=== PATIENT | female | born 1945 | race Caucasian/White ===

== ENCOUNTER 2020-03-08 10:05 | Inpatient (IN) ==
--- OUTSIDE RECORDS SUMMARY | 2020-03-08 10:08 | External Medical Summary | Continuity of Care Document ---
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 [place] Start: 07-Sep-2016 Quantity: 1 30 Aerosol Powder Br eath Activated Disp Pack Refills: 0 Symbicort 160-4.5 MCG/ACT Inhalation Aer osol; INHALE 2 PUFFS TWICE DAILY. RINSE MOUTH AFTER USE. [place] Start: 07-Sep-2016 Quantity: 1 10.2 GM Inhaler Refills: 5 Doxycycline Hyclate 100 MG Oral Capsule; TAKE 1 CAPSULE EVERY 12 HOURS UNTIL GONE. [place] Start: 07-Sep-2016 Quantity: 20 Refills: 0 predniSONE 10 MG Oral Tablet; Take 4 tab lets PO for 2 days then resume prior prednisone taper as prescribed [place] Start: 07-Sep-2016 Quantity: 8 Refills: 0 Oxygen; 2LPM with activity [place] Start: Quantity: 2 Refills: 0 Montelukast Sodium 10 MG Oral Tablet; take 1 tablet by mouth every evening Start: 01-Sep-2016 Refills: 0 Lidocaine 5 % External Ointment; APPLY TO AFFECTED AREAS DIRECTED. Start: 01-Sep-2016 Refills: 0 Atorvastatin Calcium 20 MG Oral Tablet; TAKE 1 TABLET DAILY. Start: 01-Sep-2016 Refills: 0 Toprol XL 50 MG Oral Tablet Extended Release 24 Hour; Take 1 tablet daily Start: 01-Sep-2016 Quantity: 90 Refills: 3 Lisinopril 5 MG Oral Tablet; TAKE (1) TABLET DAILY. Start: 01-Sep-2016 Quantity: 30 Refills: 5 LORazepam 1 MG Oral Tablet; TAKE 1 TABLET EVERY 6 HOURS N EEDED FOR ANXIETY. Start: 01-Sep-2016 Refills: 0 Cyanocobalamin 1000 MCG/ML Injection Marija ution; INJECT 1 ML INTRAMUSCULARLY ONCE A MONTH Start: 01-Sep-2016 Refills: 0 oxyCODONE HCl - 5 MG Oral Capsule; TAKE 1 CAPSULE EVERY 4 HO URS NEEDED. Start: 01-Sep-2016 Refills: 0 Actonel 35 MG Oral Tablet; TAKE 1 TABLET ONCE WEEKLY Start: 01-Sep-2016 Quantity: 4 Refills: 5 Vitamin D3 1.25 MG (85045 UT) Oral Capsule; take 1 capsule b y mouth every week Start: 01-Sep-2016 Refills: 0 Citalopram Hydrobromide 20 MG Oral Tablet; TAKE 1 TABLET NARAYAN LY. Start: 01-Sep-2016 Refills: 0 Acidophilus Lactobacillus Oral Capsule; TAKE DIRECTED. Start: 01-Sep-2016 Refills: 0 Aspirin Adult Low Dose 81 MG Oral Tablet Delayed Release; TA KE 1 TABLET DAILY. Start: 01-Sep-2016 Refills: 0 Procedures Procedures not documented Immunizations Immunizations not documented Plan of Treatment Planned Observations Planned Goals not documented Results No Known Results Results not documented
[2020-03-08] MEDS ORDERED: ACETAMINOPHEN 500 MG TAB PO STA (10:37)
[2020-03-08] MEDS ORDERED: ONDANSETRON INJ 2 MG/ML 2 ML VIAL IV STA (10:41)
[2020-03-08] MEDS ORDERED: SODIUM CHLORIDE 0.9% 1000ML 1,000 ML IV SCH (10:45)
[2020-03-08 10:51] LABS: Appearance Urine Clear (Clear); Bilirubin Urine Negative (Negative); Blood Urine Negative (Negative); Color Urine Yellow; Glucose Urine UA Negative (Negative); Ketones Urine Negative (Negative); Leukocyte Esterase Urine Negative (Negative); Nitrite Urine Negative (Negative); Protein Urine Negative (Negative); Specific Gravity Urine 1.016 (1.000-1.030); Urobilinogen Urine Negative (Negative); pH Urine 6.5 (4.5-7.5)
[2020-03-08] MEDS: fentaNYL citrate 100 MCG/2 ML VIAL IV PRN ×2 (10:55→12:01)
[2020-03-08 11:06] LABS: Basophils # (auto) 0.02 K/uL (0-0.2); Basophils % (auto) 0.1 %; Eosinophils % (auto) 0.5 %; Hematocrit (blood only) 37.6 % (37-47); Hemoglobin 12.2 g/dL (12.0-16.0); Immature Granulocytes # (auto) 0.16 K/uL (0.00-0.02); Immature Granulocytes % (auto) 0.7 %; Lymphocytes # (auto) 1.02 K/uL (1.2-3.4); Lymphocytes % (auto) 4.7 %; Mean Corpuscular Hgb Conc 32.4 g/dL (32-36); Mean Corpuscular Volume 86.4 fL (80-100); Mean Platelet Volume 10.5 fL (7.4-10.4); Monocytes # (auto) 1.79 K/uL (0.11-0.59); Monocytes % (auto) 8.2 %; Neutrophils # (auto) 18.79 K/uL (1.4-6.5); Neutrophils % (auto) 85.8 %; Platelet Count 235 K/uL (130-400); RDW Coefficient of Variation 13.6 % (11.5-14.5); RDW Standard Deviation 42.9 fL (36.4-46.3); Red Blood Count 4.35 M/uL (4.2-5.4); White Blood Count 21.88 K/uL (4.8-10.8)
[2020-03-08 11:07] LABS: Base Excess VBG 6.3 mEq/L; HCO3 VBG 34 mmol/L; PCO2 VBG 63 mmHg (38-50); PO2 VBG 30 mmHg; pH VBG 7.34 (7.36-7.41)
[2020-03-08 11:08] LABS: Oxygen Saturation VBG < 60.0 %
--- NOTE | 2020-03-08 11:11 | Emergency Department Note ---
Impression & Plan Closed intertrochanteric fracture of left hip, Fall, Closed fracture of left olecranon process ED Provider Note NAME: CHRIS FIGUEROA AGE: 75 SEX: F : 1945 ARRIVES VIA: Ambulance INFORMANT: Patient, ED PROVIDER(S): Silvino Daniel DO CHIEF COMPLAINT: Fall HPI: The patient is a 75-year-old female who presented to the emergency department for an evaluation after a fall. The patient states that she was seated and when she went to stand up she fell striking her left side. She has pain in her left hip as well as her left elbow. She does have a history of frequent falls and fell last week striking her left elbow. She did have swelling of the left elbow which is slowly resolving. She denies having any head injury. She denies having any nausea or vomiting. She denies having any neck pain or chest pain. The patient states that she has been compliant with her outpatient medications. She has a history of COPD and continues to use tobacco products. She denies having any significant weight loss over the last 6 months but states that she does not eat very well. She states that she has been eating and drinking about at her baseline. She denies having any lower extremity swelling. The patient arrives at the emergency department via ALS. She received morphine and prior to arrival. She states that this helped her pain in her left hip significantly. ROS: See above HPI for pertinent positives & negatives. A total of 10 systems reviewed and were otherwise negative. PAST MEDICAL HISTORY: See Below PAST SURGICAL HISTORY: See Below FAMILY HISTORY: See Below SOCIAL HISTORY: See Below HOME MEDICATIONS: See Below ALLERGIES: See Below VITALS: See Below PHYSICAL EXAMINATION: GENERAL: The patient is awake and alert. She is somewhat anxious appearing and very frail. EYES: The conjunctivae are clear. The pupils are round and reactive. EARS, NOSE, MOUTH AND THROAT: The nose is without any evidence of any deformity. Mucous members are dry. NECK: The neck is nontender and supple. RESPIRATORY: Shallow respirations were noted throughout. Diminished breath sounds are noted in all lung titus. There were no retractions but there was conversational dyspnea. CARDIOVASCULAR: Regular rate and rhythm noted there no murmurs rubs or gallops normal S1 normal S2. GASTROINTESTINAL: The abdomen is soft. Abdomen is nontender. BACK: No significant midline tenderness was noted. MUSCULOSKELETAL/EXTREMITIES: There is pain with range of motion testing of the left elbow. There is ecchymosis over the left olecranon. There is pain with range of motion testing of the left hip. There is no shortening. There is no pain in the lower extremities at the knees or the ankles. SKIN: There is no obvious evidence of any rash. Skin was warm and dry. NEUROLOGIC: Patient is awake alert and oriented x3. Strength is symmetric in both lower extremities. MEDICAL DECISION MAKING: The patient is a 75-year-old female who presented to the emergency department for an evaluation after a fall. The patient has a history of tobacco use and COPD. She has had multiple falls recently. She injured her left elbow recently but did not seek medical attention. Her elbow is very swollen and ecchymotic. She also has significant left hip pain. Radiographic studies were obtained. The patient was found to have an olecranon fracture which appears to be age- indeterminate but also has an intertrochanteric left hip fracture. The patient was treated with pain medication in the emergency department. She was reevaluated multiple times. I discussed the patient's laboratory and radiographic studies with her. Ultimately she does appear to have a surgical fracture. I discussed her case with the on-call [facility]ist. They have agreed to evaluate the patient in the emergency department for further management and disposition. Triage Nursing notes reviewed. Prior medical records reviewed Vital Signs: reviewed and remarkable for elevated blood pressure. Differential diagnosis: Infection, dehydration, metabolic abnormality, hypo/hyperglycemia, electrolyte disturbance, anemia, hypoxia, cardiac sources, intracerebral event, toxicologic, neurologic, as well as other pathologies. ER treatment provided: See below Diagnostics interpreted by me: ECG: EKG was obtained in the emergency department. My interpretation is sinus tachycardia at 117 bpm. There was no ectopy. Poor R wave progression was noted. Inferior and lateral ST depressions were noted. This was compared to a tracing from May [id number]. There was an increase in the rate however no significant changes were noted. Cardiac Monitoring: An order was placed for continuous cardiac monitoring. The monitor shows a rate of 110 bpm with sinus tachycardia rhythm. Laboratory studies: As stated above and show below. Imaging studies: See below Consultation(s): 1220: I discussed this case with Dr. Matthews who is on-call for the [facility]ist group. He will evaluate the patient in the emergency department. Past Med/Surg History Medical History COPD (chronic obstructive pulmonary disease) Reflux gastritis Social History Smoking Status: Current every day smoker Feels Safe at Home: Yes Allergies Allergies Allergy/AdvReac Type Severity Reaction Status Date / Time No Known Allergies Allergy Unverified 03/08/20 12:17 Home Meds Home Medications Medication Instructions Recorded Confirmed albuterol sulfate [Ventolin HFA] 1 - 2 puff INHALATION Q4H PRN 03/08/20 03/08/20 amlodipine 2.5 mg PO QAM 03/08/20 03/08/20 atorvastatin 20 mg PO PM 03/08/20 03/08/20 docusate sodium 100 mg PO BID 03/08/20 03/08/20 duloxetine 60 mg PO QAM 03/08/20 03/08/20 famotidine 20 mg PO QAM 03/08/20 03/08/20 xoubocpghav-pjgraotmf-dkvuljld 1 inh INHALATION BID 03/08/20 03/08/20 [Trelegy Ellipta] ipratropium-albuterol 3 ml INHALATION Q4H PRN 03/08/20 03/08/20 lorazepam 1 mg PO Q8H PRN 03/08/20 03/08/20 oxycodone 5 mg PO Q8H PRN 03/08/20 03/08/20 Results & Data (ED) Vital Signs Vital Signs - 24 hr 03/08/20 10:04 03/08/20 10:40 03/08/20 11:29 Temperature 37 C Temperature Source Oral Pulse Rate 100 H Pulse Rate [Finger] 100 H Respiratory Rate 20 20 Respiratory Depth Normal Blood Pressure 158/97 H Blood Pressure [Right Arm] 171/89 H Blood Pressure Mean 117 Blood Pressure Mean [Right Arm] 116 Pulse Oximetry 99 94 94 Oxygen Delivery Method Nasal Cannula Nasal Cannula Nasal Cannula Oxygen Flow Rate 3 3 3 Sepsis Recent Fever Within 48 Hours No Sepsis New/Unexplained Change in Mental Status N/A Sepsis Action Taken by Nursing No Action Required Home Medications Current Medication List: was personally reviewed by me Laboratory Data Attestation: I reviewed the patient's lab results. Result diagrams: 03/08/20 10:55 11/22/20 10:55 Lab Results 03/08/20 03/08/20 03/08/20 Range/Units 10:18 10:55 10:55 WBC 21.88 H (4.8-10.8) K/uL RBC 4.35 (4.2-5.4) M/uL Hgb 12.2 (12.0-16.0) g/dL Hct 37.6 (37-47) % MCV 86.4 (80-100) fL MCH 28.0 (25-34) pg MCHC 32.4 (32-36) g/dL RDW Std Deviation 42.9 (36.4-46.3) fL RDW Coeff of Zhao 13.6 (11.5-14.5) % Plt Count 235 (130-400) K/uL MPV 10.5 H (7.4-10.4) fL Immature Gran % (Auto) 0.7 % Neut % (Auto) 85.8 % Lymph % (Auto) 4.7 % Wilkin % (Auto) 8.2 % Eos % (Auto) 0.5 % Baso % (Auto) 0.1 % Neut # (Auto) 18.79 H (1.4-6.5) K/uL Lymph # (Auto) 1.02 L (1.2-3.4) K/uL Wilkin # (Auto) 1.79 H (0.11-0.59) K/uL Eos # (Auto) 0.10 (0-0.5) K/uL Baso # (Auto) 0.02 (0-0.2) K/uL Immature Gran # (Auto) 0.16 H (0.00-0.02) K/uL PT Cancelled INR Cancelled VBG pH (7.36-7.41) VBG pCO2 (38-50) mmHg VBG pO2 mmHg VBG HCO3 mmol/L VBG O2 Saturation % VBG Base Excess mEq/L Barometric Pressure mm/Hg Sodium (136-145) mmol/L Potassium (3.5-5.1) mmol/L Chloride (98-107) mmol/L Carbon Dioxide (21-32) mmol/L Anion Gap (3-11) BUN (7-18) mg/dl Creatinine (0.6-1.2) mg/dl Est Cr Clr Drug Dosing ml/min Est GFR ( Amer) Est GFR (Non-Af Amer) BUN/Creatinine Ratio (10-20) Glucose (70-99) mg/dl Calcium (8.5-10.1) mg/dl Magnesium (1.8-2.4) mg/dl Total Bilirubin (0.2-1) mg/dl AST (15-37) U/L ALT (12-78) U/L Alkaline Phosphatase (45-117) U/L Total Creatine Kinase (26-192) U/L Troponin I (0-0.045) ng/ml Total Protein (6.4-8.2) gm/dl Albumin (3.4-5.0) gm/dl Globulin (2.5-4.0) gm/dl Albumin/Globulin Ratio (0.9-2) TSH (0.300-4.500) uIu/ml Urine Color Yellow Urine Appearance Clear (Clear) Urine pH 6.5 (4.5-7.5) Ur Specific Harris 1.016 (1.000-1.030) Urine Protein Negative (Negative) Urine Glucose (UA) Negative (Negative) Urine Ketones Negative (Negative) Urine Blood Negative (Negative) Urine Nitrite Negative (Negative) Urine Bilirubin Negative (Negative) Urine Urobilinogen Negative (Negative) Ur Leukocyte Esterase Negative (Negative) SARS-CoV-2 Ag (Rapid) (Negative) 03/08/20 03/08/20 03/08/20 Range/Units 10:55 10:55 11:51 WBC (4.8-10.8) K/uL RBC (4.2-5.4) M/uL Hgb (12.0-16.0) g/dL Hct (37-47) % MCV (80-100) fL MCH (25-34) pg MCHC (32-36) g/dL RDW Std Deviation (36.4-46.3) fL RDW Coeff of Zhao (11.5-14.5) % Plt Count (130-400) K/uL MPV (7.4-10.4) fL Immature Gran % (Auto) % Neut % (Auto) % Lymph % (Auto) % Wilkin % (Auto) % Eos % (Auto) % Baso % (Auto) % Neut # (Auto) (1.4-6.5) K/uL Lymph # (Auto) (1.2-3.4) K/uL Wilkin # (Auto) (0.11-0.59) K/uL Eos # (Auto) (0-0.5) K/uL Baso # (Auto) (0-0.2) K/uL Immature Gran # (Auto) (0.00-0.02) K/uL PT 10.7 INR 1.0 VBG pH 7.34 L (7.36-7.41) VBG pCO2 63 H (38-50) mmHg VBG pO2 30 mmHg VBG HCO3 34 mmol/L VBG O2 Saturation < 60.0 % VBG Base Excess 6.3 mEq/L Barometric Pressure 738.0 mm/Hg Sodium 136 (136-145) mmol/L Potassium 3.5 (3.5-5.1) mmol/L Chloride 101 (98-107) mmol/L Carbon Dioxide 34 H (21-32) mmol/L Anion Gap 1.0 L (3-11) BUN 10 (7-18) mg/dl Creatinine 0.53 L (0.6-1.2) mg/dl Est Cr Clr Drug Dosing 54.0 ml/min Est GFR ( Amer) 108.4 Est GFR (Non-Af Amer) 93.5 BUN/Creatinine Ratio 18.6 (10-20) Glucose 127 H (70-99) mg/dl Calcium 8.7 (8.5-10.1) mg/dl Magnesium 2.0 (1.8-2.4) mg/dl Total Bilirubin 0.6 (0.2-1) mg/dl AST 34 (15-37) U/L ALT 53 (12-78) U/L Alkaline Phosphatase 107 (45-117) U/L Total Creatine Kinase 51 (26-192) U/L Troponin I < 0.015 (0-0.045) ng/ml Total Protein 7.3 (6.4-8.2) gm/dl Albumin 3.5 (3.4-5.0) gm/dl Globulin 3.8 (2.5-4.0) gm/dl Albumin/Globulin Ratio 0.9 (0.9-2) TSH 0.907 (0.300-4.500) uIu/ml Urine Color Urine Appearance (Clear) Urine pH (4.5-7.5) Ur Specific Harris (1.000-1.030) Urine Protein (Negative) Urine Glucose (UA) (Negative) Urine Ketones (Negative) Urine Blood (Negative) Urine Nitrite (Negative) Urine Bilirubin (Negative) Urine Urobilinogen (Negative) Ur Leukocyte Esterase (Negative) SARS-CoV-2 Ag (Rapid) (Negative) 03/08/20 Range/Units Unknown WBC (4.8-10.8) K/uL RBC (4.2-5.4) M/uL Hgb (12.0-16.0) g/dL Hct (37-47) % MCV (80-100) fL MCH (25-34) pg MCHC (32-36) g/dL RDW Std Deviation (36.4-46.3) fL RDW Coeff of Zhao (11.5-14.5) % Plt Count (130-400) K/uL MPV (7.4-10.4) fL Immature Gran % (Auto) % Neut % (Auto) % Lymph % (Auto) % Wilkin % (Auto) % Eos % (Auto) % Baso % (Auto) % Neut # (Auto) (1.4-6.5) K/uL Lymph # (Auto) (1.2-3.4) K/uL Wilkin # (Auto) (0.11-0.59) K/uL Eos # (Auto) (0-0.5) K/uL Baso # (Auto) (0-0.2) K/uL Immature Gran # (Auto) (0.00-0.02) K/uL PT INR VBG pH (7.36-7.41) VBG pCO2 (38-50) mmHg VBG pO2 mmHg VBG HCO3 mmol/L VBG O2 Saturation % VBG Base Excess mEq/L Barometric Pressure mm/Hg Sodium (136-145) mmol/L Potassium (3.5-5.1) mmol/L Chloride (98-107) mmol/L Carbon Dioxide (21-32) mmol/L Anion Gap (3-11) BUN (7-18) mg/dl Creatinine (0.6-1.2) mg/dl Est Cr Clr Drug Dosing ml/min Est GFR ( Amer) Est GFR (Non-Af Amer) BUN/Creatinine Ratio (10-20) Glucose (70-99) mg/dl Calcium (8.5-10.1) mg/dl Magnesium (1.8-2.4) mg/dl Total Bilirubin (0.2-1) mg/dl AST (15-37) U/L ALT (12-78) U/L Alkaline Phosphatase (45-117) U/L Total Creatine Kinase (26-192) U/L Troponin I (0-0.045) ng/ml Total Protein (6.4-8.2) gm/dl Albumin (3.4-5.0) gm/dl Globulin (2.5-4.0) gm/dl Albumin/Globulin Ratio (0.9-2) TSH (0.300-4.500) uIu/ml Urine Color Urine Appearance (Clear) Urine pH (4.5-7.5) Ur Specific Harris (1.000-1.030) Urine Protein (Negative) Urine Glucose (UA) (Negative) Urine Ketones (Negative) Urine Blood (Negative) Urine Nitrite (Negative) Urine Bilirubin (Negative) Urine Urobilinogen (Negative) Ur Leukocyte Esterase (Negative) SARS-CoV-2 Ag (Rapid) Negative (Negative) Administered Medications Fentanyl Citrate (Fentanyl Citrate 100 Mcg/2 Ml Vial) 25 mcg IV Q15M PRN PRN Reason: Pain Stop: 03/22/20 10:40 Last Admin: 03/08/20 12:01 Dose: 25 mcg Documented by: [id number] Admin: 03/08/20 10:55 Dose: 25 mcg Documented by: [id number] Discontinued Medications Acetaminophen (Acetaminophen 500 Mg Tab) 1,000 mg PO NOW STA Stop: 03/08/20 10:38 Last Admin: 03/08/20 10:57 Dose: Not Given Documented by: [id number] Sodium Chloride (Nss 1000ml) 1,000 mls @ 999 mls/hr IV .Q1H1M DENTON Stop: 03/08/20 11:45 Last Infusion: 03/08/20 12:00 Dose: 0 mls/hr Documented by: [id number] Admin: 03/08/20 10:57 Dose: 999 mls/hr Documented by: [id number] Ondansetron HCl (Ondansetron Inj 2 Mg/Ml 2 Ml Vial) 4 mg IV NOW STA Stop: 03/08/20 10:42 Last Admin: 03/08/20 10:55 Dose: 4 mg Documented by: [id number] Imaging Data Radiologist's Impression: Patient: CHRIS FIGUEROA Admit Date: 03/08/20 MR#: [id number] Address1: [address] Acct ID:[id number] Address2: Date: 1945 [facility] Zip: [place] [address] Age: 75 Location: ED Sex: F Room/Bed: Att Phy: Diagnosis: HIP PAIN Ramona Phy: PCP,NO Service Date: 03/08/20 [place] Phy: Interpreting Phy: Nikita Pryor MD Admit Phy: Ordering Phy: Silvino Daniel DO cc: ~ XR hip LT 2V w pelvis CLINICAL HISTORY: Left hip pain status post trauma COMPARISON: None. DISCUSSION: There is an acute intertrochanteric left hip fracture with resulting varus angulation. There is no SI joint diastases. There is no symphysis diastases. Postsurgical changes are present within the lower lumbar spine. There are sclerotic changes involving the left SI joint. An chronic sacral insufficien cy fracture cannot be excluded. IMPRESSION: Acute intertrochanteric left hip fracture with resultant varus angulation ACT 112: Negative or not required by law. Electronically signed by: Nikita Pryor M.D. 03/08/2020 12:35 PM Dictated: 03/08/20 1234 Transcribed: 03/08/20 1234 Patient: CHRIS FIGUEROA Admit Date: 03/08/20 MR#: [id number] Address1: [facility] [address] Acct ID:[id number] Address2: Date: 1945 [facility] Zip: [place] [address] Age: 75 Location: ED Sex: F Room/Bed: Att Phy: Diagnosis: HIP PAIN Ramona Phy: PCP,NO Service Date: 03/08/20 [place] Phy: Interpreting Phy: Nikita Pryor MD Admit Phy: Ordering Phy: Silvino Daniel DO cc: ~ CT head/brain wo con CLINICAL HISTORY: Head trauma. Confusion. COMPARISON STUDY: No previous studies for comparison. TECHNIQUE: Axial CT of the brain is performed from the vertex to the skull base. IV contrast was not administered for this examination. A dose lowering technique was utilized adhering to the principles of ALARA. CT DOSE: 1231.83 mGy.cm FINDINGS: No intra or extra-axial mass lesions are visualized. There is no CT evidence of acute cortical infarction. There is no evidence of midline shift. There is no acute hemorrhage. No calvarial fractures are visualized. There are patchy white matter hypodensities likely on a small vessel basis. There is no evidence of pathologic ventricular dilatation. There is no evidence of acute sinusitis IMPRESSION: No acute intracranial findings ACT 112: Negative or not required by law. Electronically signed by: Nikita Pryor M.D. 03/08/2020 11:21 AM Dictated: 03/08/20 1119 Transcribed: 03/08/201118 Patient: CHRIS FIGUEROA Admit Date: 03/08/20 MR#: [id number] Address1: [address] Acct ID:[id number] Address2: Date: 1945 [facility] Zip: [place] [address] Age: 75 Location: ED Sex: F Room/Bed: Att Phy: Diagnosis: HIP PAIN Ramona Phy: PCP,NO Service Date: 03/08/20 Fam Phy: Interpreting Phy: Nikita Pryor MD Admit Phy: Ordering Phy: Silvino Daniel DO cc: ~ XR elbow LT min 3V routine CLINICAL HISTORY: Left elbow pain status post trauma COMPARISON: None. DISCUSSION: The examination was performed in a portable fashion. There is an acute olecranon fracture. In addition there is a transcondylar fracture of the distal humerus, possibly old. There is prominent posterior soft tissue swelling. Cross-sectional imaging could be obtained in follow-up for further fracture delineation as deemed clinically necessary. IMPRESSION: 1. Acute mildly distracted olecranon fracture 2. Distal humeral transcondylar impaction fracture possibly old. ACT 112: Negative or not required by law. Electronically signed by: Nikita Pryor M.D. 03/08/2020 12:34 PM Dictated: 03/08/20 1230 Transcribed: 03/08/201229 Patient: CHRIS FIGUEROA Admit Date: 03/08/20 MR#: [id number] Address1: [address] Acct ID:[id number] Address2: Date: 1945 [facility] Zip: [place] [address] Age: 75 Location: ED Sex: F Room/Bed: Att Phy: Diagnosis: HIP PAIN Ramona Phy: PCP,NO Service Date: 03/08/20 [facility] Phy: Interpreting Phy: Nikita Pryor MD Admit Phy: Ordering Phy: Silvino Daniel DO cc: ~ XR chest 1V portable CLINICAL HISTORY: weakness COMPARISON STUDY: 11/19/2009 FINDINGS: The chest has an emphysematous configuration. There is no evidence of acute parenchymal consolidation. There are no pleural effusions. Subtle septal lines, likely are secondary to chronic lung disease as opposed to failure.[ IMPRESSION: Pulmonary emphysema. No evidence of acute parenchymal consolidation. ACT 112: Negative or not required by law. Electronically signed by: Nikita Pryor M.D. 03/08/2020 12:30 PM Dictated: 03/08/20 1229 Transcribed: 03/08/20 1229 Patient: CHRIS FIGUEROA Admit Date: 03/08/20 MR#: [id number] Address1: [place] [address] Acct ID:[id number] Address2: Date: 1945 [facility] Zip: [place] [address] Age: 75 Location: ED Sex: F Room/Bed: Att Phy: Diagnosis: HIP PAIN Ramona Phy: PCP,NO Service Date: 03/08/20 [facility] Phy: Interpreting Phy: Nikita Pryor MD Admit Phy: Ordering Phy: Silvino Daniel DO cc: ~ CT OF THE CERVICAL SPINE CLINICAL HISTORY: Neck pain status post trauma COMPARISON STUDY: No previous studies for comparison. CT DOSE: TECHNIQUE: CT scan of the cervical spine was performed from the skull base to the thoracic inlet. Images are reviewed in the axial, sagittal, and coronal planes. IV contrast was not administered for this examination. A dose lowering technique was utilized adhering to the principles of ALARA. FINDINGS: There are extensive atherosclerotic carotid calcifications. The visualized portions of the lung apices reveal no evidence of pneumothorax. There is a bilobed 4 mm right apical pulmonary nodule. In a low-risk patient, no further follow-up is considered necessary. The prevertebral soft tissues are normal. No fractures or traumatic subluxations are visualized. There is a slight reversal the normal cervical lordosis. There are postsurgical changes of anterior cervical discectomy and fusion. There is mild anterolisthesis of C2 on C3 and C3 on C4. This is felt to be degenerative. There are moderate multilevel degenerative changes. IMPRESSION: No evidence of acute fracture or traumatic subluxation. ACT 112: Negative or not required by law. Electronically signed by: Nikita Pryor M.D. 03/08/2020 11:24 AM Dictated: 03/08/20 1121 Transcribed: 03/08/20 112 Blood Pressure Blood Pressure Findings: Elevated blood pressure Blood Pressure Disposition: further management by hospitalist Discharge Plan Visit Data Chief Complaint: Hip Pain ED Provider: Silvino Daniel Discharge Problem: Closed intertrochanteric fracture of left hip, Fall, Closed fracture of left olecranon process Patient Disposition: Being Evaluated by Hospitalist Condition: Good Forms Stand Alone Forms: My [facility] Prescriptions Prescriptions: No Action atorvastatin 20 mg tablet 20 mg PO PM RF: 0 ipratropium-albuterol 0.5 mg-3 mg(2.5 mg base)/3 mL Solution For Nebulization 3 ml INHALATION Q4H PRN (Reason: SOB) RF: 0 amlodipine 2.5 mg tablet 2.5 mg PO QAM RF: 0 famotidine 20 mg tablet 20 mg PO QAM RF: 0 lorazepam 1 mg tablet 1 mg PO Q8H PRN (Reason: Anxiety) RF: 0 albuterol sulfate [Ventolin HFA] 90 mcg/actuation HFA aerosol inhaler 1 - 2 puff INHALATION Q4H PRN (Reason: SOB/ Wheezing) RF: 0 docusate sodium 100 mg Tablet 100 mg PO BID RF: 0 oxycodone 5 mg tablet 5 mg PO Q8H PRN (Reason: Pain) RF: 0 duloxetine 60 mg capsule,delayed release(DR/EC) 60 mg PO QAM RF: 0 Trelegy Ellipta 100-62.5-25 mcg blister with device 1 inh INHALATION BID RF: 0 Referrals Referrals: PCP,NO [Primary Care Provider] -
--- NOTE | 2020-03-08 11:22 | CT Scan Report ---
CT head/brain wo con CLINICAL HISTORY: Head trauma. Confusion. COMPARISON STUDY: No previous studies for comparison. TECHNIQUE: Axial CT of the brain is performed from the vertex to the skull base. IV contrast was not administered for this examination. A dose lowering technique was utilized adhering to the principles of ALARA. CT DOSE: 1231.83 mGy.cm FINDINGS: No intra or extra-axial mass lesions are visualized. There is no CT evidence of acute cortical infarc tion. There is no evidence of midline shift. There is no acute hemorrhage. No calvarial fractures ar e visualized. There are patchy white matter hypodensities likely on a small vessel basis. There is no evidence of pathologic ventricular dilatation. There is no evidence of acute sinusitis IMPRESSION: No acute intracranial findings ACT 112: Negative or not required by law. Electronically signed by: Nikita Pryor M.D. 03/08/2020 11:21 AM
[2020-03-08 11:23] LABS: Alanine Aminotransferase 53 U/L (12-78); Albumin Level 3.5 gm/dl (3.4-5.0); Aspartate Aminotransferase 34 U/L (15-37); BUN Creatinine Ratio 18.6 (10-20); Blood Urea Nitrogen 10 mg/dl (7-18); Calcium 8.7 mg/dl (8.5-10.1); Carbon Dioxide 34 mmol/L (21-32); Chloride 101 mmol/L (98-107); Est GFR (African American) 108.4; Est GFR (Non-African American) 93.5; Glucose 127 mg/dl (70-99); Potassium 3.5 mmol/L (3.5-5.1); Sodium 136 mmol/L (136-145)
--- NOTE | 2020-03-08 11:25 | CT Scan Report ---
CT OF THE CERVICAL SPINE CLINICAL HISTORY: Neck pain status post trauma COMPARISON STUDY: No previous studies for comparison. CT DOSE: TECHNIQUE: CT scan of the cervical spine was performed from the skull base to the thoracic inlet. Shanta ges are reviewed in the axial, sagittal, and coronal planes. IV contrast was not administered for thi s examination. A dose lowering technique was utilized adhering to the principles of ALARA. FINDINGS: There are extensive atherosclerotic carotid calcifications. The visualized portions of the lung apices reveal no evidence of pneumothorax. There is a bilobed 4 m m right apical pulmonary nodule. In a low-risk patient, no further follow-up is considered necessary. The prevertebral soft tissues are normal. No fractures or traumatic subluxations are visualized. There is a slight reversal the normal cervical lordosis. There are postsurgical changes of anterior c ervical discectomy and fusion. There is mild anterolisthesis of C2 on C3 and C3 on C4. This is felt t o be degenerative. There are moderate multilevel degenerative changes. IMPRESSION: No evidence of acute fracture or traumatic subluxation. ACT 112: Negative or not required by law. Electronically signed by: Nikita Pryor M.D. 03/08/2020 11:24 AM
[2020-03-08 11:34] LABS: Albumin Globulin Ratio 0.9 (0.9-2); Alkaline Phosphatase 107 U/L (45-117); Bilirubin,Total 0.6 mg/dl (0.2-1); Creatine Kinase 51 U/L (26-192); Globulin 3.8 gm/dl (2.5-4.0); Thyroid Stimulating Hormone 0.907 uIu/ml (0.300-4.500); Total Protein 7.3 gm/dl (6.4-8.2); Troponin I < 0.015 ng/ml (0-0.045)
[2020-03-08 12:13] LABS: Prothrombin Time 10.7 Seconds (9.0-12.0)
--- NOTE | 2020-03-08 12:32 | XRay Report ---
XR chest 1V portable CLINICAL HISTORY: weakness COMPARISON STUDY: 11/19/2009 FINDINGS: The chest has an emphysematous configuration. There is no evidence of acute parenchymal con solidation. There are no pleural effusions. Subtle septal lines, likely are secondary to chronic lung disease as opposed to failure.[ IMPRESSION: Pulmonary emphysema. No evidence of acute parenchymal consolidation. ACT 112: Negative or not required by law. Electronically signed by: Nikita Pryor M.D. 03/08/2020 12:30 PM
--- NOTE | 2020-03-08 12:35 | XRay Report ---
XR elbow LT min 3V routine CLINICAL HISTORY: Left elbow pain status post trauma COMPARISON: None. DISCUSSION: The examination was performed in a portable fashion. There is an acute olecranon fracture . In addition there is a transcondylar fracture of the distal humerus, possibly old. There is promine nt posterior soft tissue swelling. Cross-sectional imaging could be obtained in follow-up for further fracture delineation as deemed clinically necessary. IMPRESSION: 1. Acute mildly distracted olecranon fracture 2. Distal humeral transcondylar impaction fracture possibly old. ACT 112: Negative or not required by law. Electronically signed by: Nikita Pryor M.D. 03/08/2020 12:34 PM
--- NOTE | 2020-03-08 12:37 | XRay Report ---
XR hip LT 2V w pelvis CLINICAL HISTORY: Left hip pain status post trauma COMPARISON: None. DISCUSSION: There is an acute intertrochanteric left hip fracture with resulting varus angulation. Th ere is no SI joint diastases. There is no symphysis diastases. Postsurgical changes are present withi n the lower lumbar spine. There are sclerotic changes involving the left SI joint. An chronic sacral insufficiency fracture cannot be excluded. IMPRESSION: Acute intertrochanteric left hip fracture with resultant varus angulation ACT 112: Negative or not required by law. Electronically signed by: Nikita Pryor M.D. 03/08/2020 12:35 PM
--- NOTE | 2020-03-08 12:50 | History & Physical Report ---
Date of Service March 08, 2020 Assessment & Plan (1) Closed intertrochanteric fracture of left hip: Seen on x-ray in the ED. - Orthopedics consulted - NPO @ midnight - Pain control (2) Closed fracture of left olecranon process: Discussed with orthopedics PA. - CT scan ordered. - Ortho as above (3) Fall: Patient's history is not ideal, but she denies loss of consciousness with her falls. Likely due to general weakness and cachexia. - PT/OT - CM for placement (4) Leukocytosis: No focal signs/symptoms of infection. CXR and UA both clear on admission. Likely reactive from hip fx. - Monitor (5) COPD (chronic obstructive pulmonary disease): Labored breathing. Patient is still smoking. Mild end-expiratory wheezing. Chronic hypoxemic respiratory failure with need for O2. VBG shows compensated hypercarbia. - Home maintenance inhaler - DuoNebs PRN (6) Reflux gastritis: - Maalox PRN (7) Malnutrition: BMi is 14.8. Patient looks cachectic on exam. Possibly due to COPD. Unclear if patient is up-to-date on cancer screenings. - Automatic Profile Sander Operator consulted for nutrition assessment - Discuss with patient. (8) DVT prophylaxis: SCDs - Holding heparin for possible surgery. History of Present Illness Primary Care Provider: NO PCP 75yo F w/ hx of COPD who presents after a fall at home. Per the patient, she has been having a lot of falls at home. This morning, she attempted to go to the bathroom and fell. She has had several rounds of pain medication and is not a great historian due to lethargy, but she does not appear to endorse any loss of consciousness at the time. She endorses left hip pain and left elbow pain, but otherwise denies any other areas of pain, denies nausea/vomiting, denies any chest pain, denies any shortness of breath, fevers or chills. Allergies Allergy/AdvReac Type Severity Reaction Status Date / Time No Known Allergies Allergy Unverified 03/08/20 12:17 Home Medications Medication Instructions Recorded Confirmed Type albuterol sulfate [Ventolin HFA] 1 - 2 puff INHALATION Q4H PRN 03/08/20 03/08/20 History amlodipine 2.5 mg PO QAM 03/08/20 03/08/20 History atorvastatin 20 mg PO PM 03/08/20 03/08/20 History docusate sodium 100 mg PO BID 03/08/20 03/08/20 History duloxetine 60 mg PO QAM 03/08/20 03/08/20 History famotidine 20 mg PO QAM 03/08/20 03/08/20 History laboogvzgew-bzxzkxika-ymjhvfap 1 inh INHALATION BID 03/08/20 03/08/20 History [Trelegy Ellipta] ipratropium-albuterol 3 ml INHALATION Q4H PRN 03/08/20 03/08/20 History lorazepam 1 mg PO Q8H PRN 03/08/20 03/08/20 History oxycodone 5 mg PO Q8H PRN 03/08/20 03/08/20 History Past Med/Surg History Medical History COPD (chronic obstructive pulmonary disease) Reflux gastritis Family History Other Family history non-contributory Social History Smoking Status: Current every day smoker Second Hand Exposure: Yes; Do You Dip or Chew Tobacco: No; Tobacco Cessation Education Requested by Patient: No Hx Alcohol Use: No Hx Substance Use: No Preferred Language: Chinese Communication Ability: Effective Industrial Millwright Required: No Beliefs That Will Affect Care: None Current Living Situation: Spouse Other Information That Helps Us Care for You: No Feels Safe at Home: Yes Safety Concerns: Feels Safe At This Time Assistive Devices: Oxygen - Continuous Review of Systems Review of Systems: All systems reviewed & are unremarkable except as noted in HPI & below Physical Exam Constitutional: WD/WN, vitals as above Eyes: EOM intact bilaterally; no conjunctival abnormality ENMT: external ear and nose normal, oropharynx normal Neck: trachea midline, no thyromegaly normal visual inspection Respiratory: normal respiratory effort, lungs clear to auscultation no respiratory distress Cardiovascular: Rate/Rhythm: regular rhythm and + tachycardic Heart Sounds: normal S1 and normal S2 Extremities: no edema Gastrointestinal (Abdomen): Inspection/Auscultation: abdomen normal to inspection; abdomen not distended Musculoskeletal: Head/Neck/Chest: normocephalic and head atraumatic Extremities: + limited ROM of extremities (Left leg) and + muscle atrophy; + abnormal strength Skin: no rashes, warm and dry Neurologic: moves all extremities and awake Psychiatric: Orientation: alert, oriented to person and cooperative Results & Data Results & Data ([facility]) Vital Signs (Past 12 Hours) Vital Signs Temp Pulse Pulse Resp BP BP Pulse Ox 03/08/20 11:29 100 H 20 171/89 H 94 03/08/20 10:40 94 03/08/20 10:04 37 C 100 H 20 158/97 H 99 Code Status & VTE Plan VTE Prophylaxis Plan VTE Prophylaxis will be ordered: Yes PG Care Time/CCT Total # of Minutes Spent Total Time Spent with Patient: Total time spent is greater than 50% in coordination of care (as documented) at patient's floor/unit and/or counseling patient: Coding Level of Care Code 95572 Initial Inpt Care Lvl 3 Diagnoses Closed intertrochanteric fracture of left hip S72.142A Encounter type: initial encounter Fracture alignment: displaced Closed fracture of left olecranon process S52.022A Encounter type: initial encounter Fall W19.XXXA Encounter type: initial encounter Leukocytosis D72.829 COPD (chronic obstructive pulmonary disease) J44.9 Reflux gastritis K29.60 Malnutrition E46 DVT prophylaxis Z29.9 (1) Fall Encounter type: initial encounter Qualified Code(s): W19.XXXA - Unspecified fall, initial encounter (2) Closed fracture of left olecranon process Encounter type: initial encounter Qualified Code(s): S52.022A - Displaced fracture of olecranon process without intraarticular extension of left ulna, initial encounter for closed fracture (3) Closed intertrochanteric fracture of left hip Encounter type: initial encounter Fracture alignment: displaced Qualified Code(s): S72.142A - Displaced intertrochanteric fracture of left femur, initial encounter for closed fracture
[2020-03-08] MEDS ORDERED: ONDANSETRON INJ 2 MG/ML 2 ML VIAL IV PRN (14:26)
[2020-03-08] MEDS: MoRPHine SULFATE 4 MG/ML 1 ML CARP\\VIAL IV PRN ×2 (15:08→20:07)
--- NOTE | 2020-03-08 16:36 | XRay Report ---
XR femur LT 2V routine CLINICAL HISTORY: Left femur pain status post trauma COMPARISON: AP pelvis performed the same day DISCUSSION: There is a left hip fracture with resultant varus angulation. No additional femoral fract ures are visualized. There are moderately extensive vascular calcifications. There are postsurgical c hanges in the lower lumbar spine. There are persistent sclerotic changes involve the left SI joint. IMPRESSION: Intertrochanteric hip fracture with resultant varus angulation. No additional femoral fra ctures identified ACT 112: Negative or not required by law. Electronically signed by: Nikita Pryor M.D. 03/08/2020 4:35 PM
--- NOTE | 2020-03-08 17:14 | CT Scan Report ---
CT elbow LT wo con CT DOSE: 214.68 mGy.cm CLINICAL HISTORY: Left elbow fracture. Surgical planning. TECHNIQUE: Helical images were acquired in the transverse plane. Sagittal and coronal reformatted enedelia ges were acquired. A dose lowering technique was utilized adhering to the principles of ALARA. COMPARISON STUDY: None. FINDINGS: There is mild diffuse soft tissue edema. There is an acute olecranon fracture with 5 mm of displacement. There is no evidence of radial head dislocation. There is an old healed transcondylar d istal humeral fracture. The fracture is healed with 1 cm dorsal displacement of the major distal frag ments. IMPRESSION: 1. Acute olecranon fracture demonstrating 5 mm of displacement 2. Old healed impacted transverse condylar distal humeral fracture. ACT 112: Negative or not required by law. Electronically signed by: Nikita Pryor M.D. 03/08/2020 5:12 PM
[2020-03-08] MEDS: oxyCODONE HCL IR 5 MG TAB (IMMEDIATE RELEASE) PO PRN ×2 (17:27→23:19)
[2020-03-08] MEDS: DOCUSATE SODIUM 100 MG CAP PO SCH (20:13)
[2020-03-08] MEDS: LORazepam 1 MG TAB PO PRN (20:13)
[2020-03-08] MEDS: ATORVASTATIN 20 MG TAB PO SCH (20:13)
--- NOTE | 2020-03-08 22:15 | Electrocardiogram Report ---
Test Reason : Blood Pressure : / mmHG Vent. 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
[2020-03-09] MEDS: oxyCODONE HCL IR 5 MG TAB (IMMEDIATE RELEASE) PO PRN ×4 (04:30→23:43)
[2020-03-09 06:12] LABS: Hematocrit (blood only) 33.4 % (37-47); Hemoglobin 10.6 g/dL (12.0-16.0); Mean Corpuscular Hgb Conc 31.7 g/dL (32-36); Mean Corpuscular Volume 88.4 fL (80-100); Mean Platelet Volume 10.8 fL (7.4-10.4); Platelet Count 200 K/uL (130-400); RDW Coefficient of Variation 14.1 % (11.5-14.5); RDW Standard Deviation 45.2 fL (36.4-46.3); Red Blood Count 3.78 M/uL (4.2-5.4); White Blood Count 15.88 K/uL (4.8-10.8)
[2020-03-09 06:29] LABS: BUN Creatinine Ratio 22.7 (10-20); Calcium 8.8 mg/dl (8.5-10.1); Creatinine Clr Calc Pharmacy 56.1 ml/min; Est GFR (African American) 109.8; Est GFR (Non-African American) 94.7; Magnesium 1.7 mg/dl (1.8-2.4); Potassium 3.6 mmol/L (3.5-5.1)
[2020-03-09] MEDS: MoRPHine SULFATE 4 MG/ML 1 ML CARP\\VIAL IV PRN ×3 (06:44→21:06)
[2020-03-09] MEDS: ALBUT/IPRATROP 3MG/0.5MG NEB 3 ML VIAL INH PRN ×2 (06:53→19:55)
[2020-03-09] MEDS: DULoxetine HCL 60 MG CAP PO SCH (07:45)
[2020-03-09] MEDS: FAMOTIDINE 20 MG TAB PO SCH (07:45)
[2020-03-09] MEDS: amLODIPine BESYLATE 5 MG TAB PO SCH (07:46)
[2020-03-09] MEDS: DOCUSATE SODIUM 100 MG CAP PO SCH ×2 (07:46→20:56)
[2020-03-09] MEDS: UMECLIDINIUM/VILANTEROL 62.5/25MCG 7 PUFFS/INHALER INH SCH (07:46)
[2020-03-09] MEDS: FLUTICASONE FUROATE 100MCG 14 PUFFS/INHALER INH SCH (07:46)
--- NOTE | 2020-03-09 09:29 | Orthopedic Consultation ---
Date of Consultation March 09, 2020 Assessment & Plan (1) Closed intertrochanteric fracture of left hip: X-rays reviewed with Dr. Vazquez. Patient will require left trochanteric femoral nailing. This has been discussed with the patient and she is in agreement. Plan for left TFN later this afternoon. (2) Closed fracture of left olecranon process: A long-arm splint was applied to the left upper extremity. Patient tolerated it well. Plan to treat this fracture nonoperatively at this time. Continue splint and sling. Ice to the left elbow. Supervising Physician Co-Signing Physician Notes Patient seen and examined. Agree with ENRIQUE Fisher's note as above. She has a left hip acute displaced intertrochanteric hip fracture that will require urgent cephalomedullary nailing. She was a community ambulator without regular use of an ambulatory aid prior to this injury. However she has numerous falls. I would recommend a walker for balance and support in the future. 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 With her pre- existing deformity, I would recommend nonoperative treatment for the acute olecranon fracture, and she is in agreement. Risks, benefits, and alternatives of surgery were explained in detail. The surgical procedure, as well as postoperative recovery and rehabilitation, was also explained in detail. Risks include bleeding; infection; damage to surrounding structures such as nerves, blood vessels, and tendons that run in the area; persistent pain or stiffness; nonunion; malunion; hardware failure; painful prominent hardware requiring removal; or need for further surgery. He/she understands all of this and wishes to proceed with surgery. Preoperative workup was completed today, and informed consent was obtained. History of Present Illness Reason for Consultation: Intertrochanteric left hip fracture Left olecranon fracture Attending Physician: Rashad Matthews MD History of Present Illness 75-year-old white [facility] at home. The patient apparently has had multiple falls at home in the past. She currently states that she does not remember falling this last time. When she realized she had fallen she had a moderate pain in her left hip and elbow. She was unable to ambulate and was brought to the emergency room. She does not remember having any shortness of breath, chest pain, lightheadedness prior to or after the fall. He was seen by the emergency room staff and x-rays were taken. It was found that she had an intertrochanteric left hip fracture as well as an olecranon fracture of the left elbow. She was admitted and we have been asked to take care of her fractures. She is currently awake and alert in her room. She states that her pain is controlled at rest. However there are times when her hip gives her spasms. No other complaints at this time. Allergies Allergy/AdvReac Type Severity Reaction Status Date / Time No Known Allergies Allergy Unverified 03/08/20 12:17 Home Medications Medication Instructions Recorded Confirmed Type albuterol sulfate [Ventolin HFA] 1 - 2 puff INHALATION Q4H PRN 03/08/20 03/08/20 History amlodipine 2.5 mg PO QAM 03/08/20 03/08/20 History atorvastatin 20 mg PO PM 03/08/20 03/08/20 History docusate sodium 100 mg PO BID 03/08/20 03/08/20 History duloxetine 60 mg PO QAM 03/08/20 03/08/20 History famotidine 20 mg PO QAM 03/08/20 03/08/20 History rhyifbkrkbw-fnnqhwgle-khqpzrgz 1 inh INHALATION BID 03/08/20 03/08/20 History [Trelegy Ellipta] ipratropium-albuterol 3 ml INHALATION Q4H PRN 03/08/20 03/08/20 History lorazepam 1 mg PO Q8H PRN 03/08/20 03/08/20 History oxycodone 5 mg PO Q8H PRN 03/08/20 03/08/20 History Patient History Medical History COPD (chronic obstructive pulmonary disease) Reflux gastritis Smoker Family History Other Family history non-contributory Social History Smoking Status: Current every day smoker Second Hand Exposure: Yes; Do You Dip or Chew Tobacco: No; Tobacco Cessation Education Requested by Patient: No Hx Alcohol Use: No Hx Substance Use: No Preferred Language: Setswana Communication Ability: Effective Dual Hose Cementer Required: No Beliefs That Will Affect Care: None marital status: Current Living Situation: Spouse Other Information That Helps Us Care for You: No Feels Safe at Home: Yes Safety Concerns: Feels Safe At This Time Assistive Devices: Oxygen - Continuous Review of Systems Review of Systems: All systems reviewed & are unremarkable except as noted in HPI & below Physical Exam Physical Exam: Patient is a 75-year-old thin cachectic female. She is awake and alert and oriented to person and place. Focusing the exam on her left lower extremity, she has her left hip flexed to approximately 60 degrees and the remainder of her lower extremity is on a pillow. He states that this is the best position for her with less pain. Attempts are made to take the hip or the knee through range of motion secondary to left hip fracture. She has good range of motion of her left ankle and toes. 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 Mild tenderness on palpation of the lateral hip. Only mild swelling noted. Left knee is nontender on palpation. Right lower extremity is unaffected and she has good range of motion of her right hip knee and ankle. Left upper extremity has noted swelling around the left elbow. There is no splint on the left upper extremity. There are no abrasions or cuts over the left elbow. She is obviously tender at the left elbow and is able to take the elbow through gentle range of motion on her own with pain and I had asked her not to do any active range of motion at this time. Left shoulder range of motion is intact. Denies pain of left wrist pain at this time. Range of motion of her wrist and fingers are within normal limits. Sensation is intact. Right upper extremity is unaffected at this time at the shoulder elbow and wrist. Still pulses are equal bilaterally of the upper and lower extremities. There is no gross motor or sensory loss seen at this time. Results & Data ([facility]) Vital Signs (Past 12 Hours) Vital Signs Temp Pulse Resp BP Pulse Ox 03/09/20 07:35 36.7 C 104 H 20 158/75 H 98 03/09/20 06:53 100 H 18 93 03/08/20 23:07 36.8 C 109 H 18 151/67 H 91 Laboratory Results Laboratory Results WBC 15.88 K/uL (4.8-10.8) H 11/23/20 05:49 RBC 3.78 M/uL (4.2-5.4) L 03/09/20 05:49 Hgb 10.6 g/dL (12.0-16.0) L 03/09/20 05:49 Hct 33.4 % (37-47) L 03/09/20 05:49 MCV 88.4 fL (80-100) 03/09/20 05:49 MCH 28.0 pg (25-34) 03/09/20 05:49 MCHC 31.7 g/dL (32-36) L 03/09/20 05:49 RDW Std Deviation 45.2 fL (36.4-46.3) 03/09/20 05:49 RDW Coeff of Zhao 14.1 % (11.5-14.5) 03/09/20 05:49 Plt Count 200 K/uL (130-400) 03/09/20 05:49 MPV 10.8 fL (7.4-10.4) H 03/09/20 05:49 Immature Gran % (Auto) 0.7 % 03/08/20 10:55 Neut % (Auto) 85.8 % 03/08/20 10:55 Lymph % (Auto) 4.7 % 03/08/20 10:55 Payne % (Auto) 8.2 % 03/08/20 10:55 Eos % (Auto) 0.5 % 03/08/20 10:55 Baso % (Auto) 0.1 % 03/08/20 10:55 Neut # (Auto) 18.79 K/uL (1.4-6.5) H 03/08/20 10:55 Lymph # (Auto) 1.02 K/uL (1.2-3.4) L 03/08/20 10:55 Payne # (Auto) 1.79 K/uL (0.11-0.59) H 03/08/20 10:55 Eos # (Auto) 0.10 K/uL (0-0.5) 03/08/20 10:55 Baso # (Auto) 0.02 K/uL (0-0.2) 03/08/20 10:55 Immature Gran # (Auto) 0.16 K/uL (0.00-0.02) H 03/08/20 10:55 PT 10.7 Seconds (9.0-12.0) 03/08/20 11:51 INR 1.0 (0.9-1.1) 03/08/20 11:51 VBG pH 7.34 (7.36-7.41) L 03/08/20 10:55 VBG pCO2 63 mmHg (38-50) H 03/08/20 10:55 VBG pO2 30 mmHg 03/08/20 10:55 VBG HCO3 34 mmol/L 03/08/20 10:55 VBG O2 Saturation < 60.0 % 03/08/20 10:55 VBG Base Excess 6.3 mEq/L 03/08/20 10:55 Barometric Pressure 738.0 mm/Hg 03/08/20 10:55 Sodium 140 mmol/L (136-145) 03/09/20 05:49 Potassium 3.6 mmol/L (3.5-5.1) 03/09/20 05:49 Chloride 105 mmol/L (98-107) 03/09/20 05:49 Carbon Dioxide 32 mmol/L (21-32) 03/09/20 05:49 Anion Gap 3.0 (3-11) 03/09/20 05:49 BUN 12 mg/dl (7-18) 03/09/20 05:49 Creatinine 0.51 mg/dl (0.6-1.2) L 03/09/20 05:49 Est Cr Clr Drug Dosing 56.1 ml/min 03/09/20 05:49 Est GFR ( Amer) 109.8 03/09/20 05:49 Est GFR (Non-Af Amer) 94.7 03/09/20 05:49 BUN/Creatinine Ratio 22.7 (10-20) H 03/09/20 05:49 Glucose 108 mg/dl (70-99) H 03/09/20 05:49 Calcium 8.8 mg/dl (8.5-10.1) 03/09/20 05:49 Magnesium 1.7 mg/dl (1.8-2.4) L 03/09/20 05:49 Total Bilirubin 0.6 mg/dl (0.2-1) 03/08/20 10:55 AST 34 U/L (15-37) 03/08/20 10:55 ALT 53 U/L (12-78) 03/08/20 10:55 Alkaline Phosphatase 107 U/L (45-117) 03/08/20 10:55 Total Creatine Kinase 51 U/L (26-192) 03/08/20 10:55 Troponin I < 0.015 ng/ml (0-0.045) 03/08/20 10:55 Total Protein 7.3 gm/dl (6.4-8.2) 03/08/20 10:55 Albumin 3.5 gm/dl (3.4-5.0) 03/08/20 10:55 Globulin 3.8 gm/dl (2.5-4.0) 03/08/20 10:55 Albumin/Globulin Ratio 0.9 (0.9-2) 03/08/20 10:55 TSH 0.907 uIu/ml (0.300-4.500) 03/08/20 10:55 Urine Color Yellow 03/08/20 10:18 Urine Appearance Clear (Clear) 03/08/20 10:18 Urine pH 6.5 (4.5-7.5) 03/08/20 10:18 Ur Specific [place] 1.016 (1.000-1.030) 03/08/20 10:18 Urine Protein Negative (Negative) 03/08/20 10:18 Urine Glucose (UA) Negative (Negative) 03/08/20 10:18 Urine Ketones Negative (Negative) 03/08/20 10:18 Urine Blood Negative (Negative) 03/08/20 10:18 Urine Nitrite Negative (Negative) 03/08/20 10:18 Urine Bilirubin Negative (Negative) 03/08/20 10:18 Urine Urobilinogen Negative (Negative) 03/08/20 10:18 Ur Leukocyte Esterase Negative (Negative) 03/08/20 10:18 SARS-CoV-2 Ag (Rapid) Negative (Negative) 03/08/20 Unknown Diagnostic Findings Patient: CHRIS FIGUEROA EAdmit Date: 03/08/20MR#: [id number]: [address]Acct ID:[id number]: [facility] Zip: [place] [id number]: [id number]: 3ESex: FRoom/Bed: [id number] Phy: Rashad Matthews, MDDiagnosis: LT HIP FRACTUREPri Phy: PCP,NOService Date: 03/08/20Fam Phy:Interpreting Phy: Nikita Pryor MDAdmit Phy: Rashad Matthews MD Ordering Phy: Carson Remy D.O. cc: ~ XR femur LT 2V routine CLINICAL HISTORY: Left femur pain status post trauma COMPARISON: AP pelvis performed the same day DISCUSSION: There is a left hip fracture with resultant varus angulation. No additional femoral fractures are visualized. There are moderately extensive vascular calcifications. There are postsurgical changes in the lower lumbar spine. There are persistent sclerotic changes involve the left SI joint. IMPRESSION: Intertrochanteric hip fracture with resultant varus angulation. No additional femoral fractures identified CT elbow LT wo con CT DOSE: 214.68 mGy.cm CLINICAL HISTORY: Left elbow fracture. Surgical planning. TECHNIQUE: Helical images were acquired in the transverse plane. Sagittal and coronal reformatted images were acquired. A dose lowering technique was utilized adhering to the principles of ALARA. COMPARISON STUDY: None. FINDINGS: There is mild diffuse soft tissue edema. There is an acute olecranon fracture with 5 mm of displacement. There is no evidence of radial head dislocation. There is an old healed transcondylar distal humeral fracture. The fracture is healed with 1 cm dorsal displacement of the major distal fragments. IMPRESSION: 1. Acute olecranon fracture demonstrating 5 mm of displacement 2. Old healed impacted transverse condylar distal humeral fracture. (1) Closed fracture of left olecranon process Encounter type: initial encounter Qualified Code(s): S52.022A - Displaced fracture of olecranon process without intraarticular extension of left ulna, initial encounter for closed fracture (2) Closed intertrochanteric fracture of left hip Encounter type: initial encounter Fracture alignment: displaced Qualified Code(s): S72.142A - Displaced intertrochanteric fracture of left femur, initial encounter for closed fracture
--- NOTE | 2020-03-09 12:29 | Hospitalist Progress Note ---
Date of Service March 09, 2020 Assessment & Plan (1) Closed intertrochanteric fracture of left hip: Seen on x-ray in the ED. - Orthopedics consulted - NPO @ midnight - Pain control - Plan for surgery today. (2) Closed fracture of left olecranon process: Discussed with orthopedics PA. Two fractures seen on CT scan. - Non-operative management. (3) Fall: Patient's history is not ideal, but she denies loss of consciousness with her falls. Likely due to general weakness and cachexia. - PT/OT - CM for placement (4) Leukocytosis: No focal signs/symptoms of infection. CXR and UA both clear on admission. Likely reactive from hip fx. - Monitor -> Improving today. (5) COPD (chronic obstructive pulmonary disease): Patient is still smoking. Mild end-expiratory wheezing. Chronic hypoxemic respiratory failure with need for O2. VBG shows compensated hypercarbia. - Home maintenance inhaler - DuoNebs PRN - Stable today. Still mild wheezing, but no increased work of breathing. (6) Reflux gastritis: - Maalox PRN (7) Malnutrition: BMi is 14.8. Patient looks cachectic on exam. Possibly due to COPD. Severe protein-calorie malnutrition. Unclear if patient is up-to-date on cancer s creenings. - Vp Ancillary consulted for nutrition assessment - Discuss with patient. (8) DVT prophylaxis: SCDs - Holding heparin for possible surgery. Admission and Anticipated Discharge Date Admission Date: March 08, 2020 Subjective With some left hip pain and left elbow pain. Reports no fevers/chills, chest pain, shortness of breath, abdominal pain, nausea, or vomiting. Physical Exam Constitutional: WD/WN, vitals as above Eyes: EOM intact bilaterally; no conjunctival abnormality ENMT: external ear and nose normal, oropharynx normal Neck: trachea midline, no thyromegaly normal visual inspection Respiratory: normal respiratory effort, lungs clear to auscultation no respiratory distress Cardiovascular: Rate/Rhythm: regular rhythm and + tachycardic Heart Sounds: normal S1 and normal S2 Extremities: no edema Gastrointestinal (Abdomen): Inspection/Auscultation: abdomen normal to inspection; abdomen not distended Musculoskeletal: Head/Neck/Chest: normocephalic and head atraumatic Ext remities: + limited ROM of extremities (Left leg) and + muscle atrophy; + abnormal strength Skin: no rashes, warm and dry Neurologic: moves all extremities and awake Psychiatric: Orientation: alert, oriented to person and cooperative Results & Data Results & Data ([facility]) Vital Signs (Past 12 Hours) Vital Signs Temp Pulse Resp BP Pulse Ox 03/09/20 07:35 36.7 C 104 H 20 158/75 H 98 03/09/20 06:53 100 H 18 93 PG Care Time/CCT Total # of Minutes Spent Total Time Spent with Patient: Total time spent is greater than 50% in coordination of care (as documented) at patient's floor/unit and/or counseling patient: Coding Level of Care Code 23944 Subseq Hosp Care Lvl 3 Diagnoses Closed intertrochanteric fracture of left hip S72.142A Encounter type: initial encounter Fracture alignment: displaced Closed fracture of left olecranon process S52.022A Encounter type: initial encounter Fall W19.XXXA Encounter type: initial encounter Leukocytosis D72.829 COPD (chronic obstructive pulmonary disease) J44.9 Reflux gastritis K29.60 Malnutrition E46 DVT prophylaxis Z29.9 (1) Fall Encounter type: initial encounter Qualified Code(s): W19.XXXA - Unspecified fall, initial encounter (2) Closed fracture of left olecranon process Encounter type: initial encounter Qualified Code(s): S52.022A - Displaced fracture of olecranon process without intraarticular extension of left ulna, initial encounter for closed fracture (3) Closed intertrochanteric fracture of left hip Encounter type: initial encounter Fracture alignment: displaced Qualified Code(s): S72.142A - Displaced intertrochanteric fracture of left femur, initial encounter for closed fracture
--- NOTE | 2020-03-09 12:32 | Anesthesiology Consultation ---
Date of Service March 09, 2020 Assessment & Plan (1) Encounter for pre-operative examination: Chart Review Chart Review: data entry supervisor initiated History Surgery Operation Date: 03/09/20 07:00 Proposed Procedures p Left Troch Nail - Virgilio Vazquez M.D. Height/Weight Height: 5 ft 2 in Weight: 36.7 kg Allergies Allergy/AdvReac Type Severity Reaction Status Date / Time No Known Allergies Allergy Unverified 03/08/20 12:17 Medications Home Medications Medication Instructions Recorded Confirmed Last Taken albuterol sulfate [Ventolin HFA] 1 - 2 puff INHALATION Q4H PRN 03/08/20 03/08/20 Unknown amlodipine 2.5 mg PO QAM 03/08/20 03/08/20 03/08/20 atorvastatin 20 mg PO PM 03/08/20 03/08/20 Unknown docusate sodium 100 mg PO BID 03/08/20 03/08/20 03/08/20 duloxetine 60 mg PO QAM 03/08/20 03/08/20 03/08/20 famotidine 20 mg PO QAM 03/08/20 03/08/20 03/08/20 pbpwdruepsp-xcrvtwdcv-xhdqaddn 1 inh INHALATION BID 03/08/20 03/08/20 03/08/20 [Trelegy Ellipta] ipratropium-albuterol 3 ml INHALATION Q4H PRN 03/08/20 03/08/20 03/08/20 lorazepam 1 mg PO Q8H PRN 03/08/20 03/08/20 03/08/20 oxycodone 5 mg PO Q8H PRN 03/08/20 03/08/20 Unknown Active Medications Generic Name Dose Route Start Last Admin Trade Name Freq PRN Reason Stop Dose Admin Albuterol 3 ml 03/08/20 14:26 03/09/20 06:53 Albut/Ipratrop 3mg/0.5mg Neb 3 Ml Vial INH 04/07/20 14:25 3 ml Q4R PRN Administration Shortness Of Breath Or Wheezing Amlodipine Besylate 2.5 mg 03/09/20 09:00 03/09/20 07:46 Amlodipine Besylate 5 Mg Tab PO 04/08/20 08:59 2.5 mg QAM DENTON Administration Atorvastatin Calcium 20 mg 03/08/20 21:00 03/08/20 20:13 Atorvastatin 20 Mg Tab PO 04/07/20 20:59 20 mg PM DENTON Administration Docusate Sodium 100 mg 03/08/20 21:00 03/09/20 07:46 Docusate Sodium 100 Mg Cap PO 04/07/20 20:59 100 mg BID DENTON Administration Duloxetine HCl 60 mg 03/09/20 09:00 03/09/20 07:45 Duloxetine Hcl 60 Mg Cap PO 04/08/20 08:59 60 mg QAM DENTON Administration Famotidine 20 mg 03/09/20 09:00 03/09/20 07:45 Famotidine 20 Mg Tab PO 04/08/20 08:59 20 mg QAM DENOTN Administration Fluticasone Furoate 1 puffs 03/09/20 09:00 03/09/20 07:46 Fluticasone Furoate 100mcg 14 Puffs/Inhaler INH 04/08/20 08:59 1 puffs DAILY DENTON Administration Lorazepam 1 mg 03/08/20 14:33 03/08/20 20:13 Lorazepam 1 Mg Tab PO 04/07/20 14:32 1 mg TID PRN Administration Anxiety Morphine Sulfate 3 mg 03/08/20 14:26 03/09/20 12:31 Morphine Sulfate 4 Mg/Ml 1 Ml Carp\Vial IV 03/22/20 14:25 3 mg Q4H PRN Administration Pain Oxycodone HCl 5 mg 03/08/20 14:33 03/09/20 10:45 Oxycodone Hcl Ir 5 Mg Tab (Immediate Release) PO 03/22/20 14:32 5 mg Q4H PRN Administration Pain Umeclidinium/Vilanterol 1 puffs 03/09/20 09:00 03/09/20 07:46 Umeclidinium/Vilanterol 62.5/25mcg 7 Puffs/Inhaler INH 04/08/20 08:59 1 puffs DAILY DENTON Administration NPO Last Intake of Fluids Comment: Day RN reported pt did not eat or drink much 03/08/20 Last Intake of Solids Comment: Day RN reported pt did not eat or drink much 03/08/20 Past Medical History Medical History COPD (chronic obstructive pulmonary disease) Reflux gastritis Past Family History Family History Other Family history non-contributory Social History Smoking Status: Current every day smoker tobacco type: cigarettes Do You Dip or Chew Tobacco: No Hx Alcohol Use: No Hx Substance Use: No Physical Exam Vital Signs Last Vital Signs Temp 98.1 F 03/09/20 07:35 Pulse 104 H 03/09/20 07:35 Resp 20 03/09/20 07:35 BP 158/75 H 03/09/20 07:35 Pulse Ox 98 03/09/20 07:35 Testing Laboratory Results 03/09/20 05:49 03/09/20 05:49 PT 10.7 Seconds (9.0-12.0) 03/08/20 11:51 INR 1.0 (0.9-1.1) 03/08/20 11:51 Urine Color Yellow 03/08/20 10:18 Urine Appearance Clear (Clear) 03/08/20 10:18 Urine pH 6.5 (4.5-7.5) 03/08/20 10:18 Ur Specific [place] 1.016 (1.000-1.030) 03/08/20 10:18 Urine Protein Negative (Negative) 03/08/20 10:18 Urine Glucose (UA) Negative (Negative) 03/08/20 10:18 Urine Ketones Negative (Negative) 03/08/20 10:18 Urine Nitrite Negative (Negative) 03/08/20 10:18 Ur Leukocyte Esterase Negative (Negative) 03/08/20 10:18 Electrocardiogram Date: 03/08/20 Poor data quality, interpretation may be adversely affected Sinus tachycardia, rate 117 bpm 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 No evidence of acute parenchymal consolidation.
[2020-03-09] MEDS: MAGNESIUM SULFATE / D5W 1 GM/100 ML BAG IV SCH ×3 (13:24→20:38)
[2020-03-09] MEDS ORDERED: ONDANSETRON INJ 2 MG/ML 2 ML VIAL ONE (14:12)
[2020-03-09] MEDS ORDERED: PROPOFOL IV EMULSION 10 MG/ML 20 ML VIAL IV ONE (14:12)
[2020-03-09] MEDS ORDERED: LIDOCAINE HCL 2% 2 ML VIAL/AMP(20MG/ML) INFIL ONE (14:12)
[2020-03-09] MEDS ORDERED: ATROPINE SULFATE 0.1 MG/ML 10ML SYR IV PRN (15:06)
[2020-03-09] MEDS ORDERED: LABETALOL HCL IV 5 MG/ML 20ML IV PRN (15:06)
[2020-03-09] MEDS ORDERED: PHENYLEPHRINE 100MCG/ML 5ML SYR IV PRN (15:06)
[2020-03-09] MEDS ORDERED: HYDROmorphone INJ 1 MG/ML SYRINGE IV PRN (15:06)
[2020-03-09] MEDS ORDERED: ePHEDrine sulfate 50 MG/ML AMP IV PRN (15:06)
[2020-03-09] MEDS ORDERED: ONDANSETRON INJ 2 MG/ML 2 ML VIAL IV PRN (15:06)
[2020-03-09] MEDS ORDERED: fentaNYL citrate 100 MCG/2 ML VIAL IV PRN (15:06)
[2020-03-09] MEDS ORDERED: MIDAZOLAM HCL 1 MG/ML 2ML VIAL ONE (15:07)
--- NOTE | 2020-03-09 15:49 | History & Physical Bridge Note ---
Date of Service March 09, 2020 History & Physical Bridge Note I have examined the patient, reviewed the History & Physical and in the interval since the performance of the History & Physical I have noted the following changes of clinical significance: no changes noted
[2020-03-09] MEDS ORDERED: KETAMINE 50 MG/5 ML SYRINGE ONE (15:55)
[2020-03-09] MEDS ORDERED: BUPIVACAINE 0.5 % 5 MG/1 ML PF 10ML VIAL ONE (15:59)
[2020-03-09] MEDS ORDERED: ceFAZolin 1000MG 1,000 MG/7.5 ML SYR IV ONE (16:54)
--- NOTE | 2020-03-09 17:01 | Post Operative Brief Note ---
Immediate Post Op Note v1 Date of Surgery March 09, 2020 Pre & Post Diagnosis Operation Date: 03/09/20 07:00 Pre-Op Diagnosis: Left Hip Fracture Post-Op Diagnosis: Left Hip Fracture I identified the patient and participated in the time-out.: Yes Procedure Operation Date: 03/09/20 07:00 Actual Procedures p Left Troch Nail(Left) - Virgilio Vazquez M.D. Surgeon Virgilio Vazquez [employer] Sales Manager None Estimated Blood Loss 40 Findings Consistent with Post-Op Diagnosis
--- NOTE | 2020-03-09 17:09 | Operative Report ---
Post Operative Report Pre & Post Diagnosis Operation Date: 03/09/20 07:00 Pre-Op Diagnosis: 1. Left hip displaced intertrochanteric femur fracture 2. 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 Left hip displaced intertrochanteric femur fracture 2. 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 Left hip short cephalomedullary nailing of displaced intertrochanteric femur fracture (16702) 2. 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 Surgeon Virgilio Vazquez Tax Investigator None Estimated Blood Loss 40 Findings Consistent with Post-Op Diagnosis Specimens None Drains None Anesthesia Type Spinal Complications none Disposition Disposition: Recovery Room Indications Ms. Mosley is a 75-year-old female who injured her left hip and left elbow in a ground-level fall. Of note, she had significant pre-existing deformity and limited use of her left elbow after nonoperative treatment of a supracondylar hu merus fracture about 2.5 years ago with resultant malunion. History, clinical exam, and imaging were consistent with the above diagnosis. Risks, benefits, and alternatives of surgery were explained in detail. The patient understood all this and wished to proceed. Description of Procedure Implants: Synthes Short (170mm) 130 degree 12mm Trochanteric Fixation Nail, 11mm helical blade, 5mm distal locking screw Patient was identified in the preoperative holding area. Operative extremity was marked. Patient was then brought back to the operating room, and a spinal blockade was given by the anesthesia staff. MAC anesthesia was then induced without complication. Appropriate weight-based dose of Ancef was infused intravenously for antibiotic prophylaxis. Patient was then positioned on the fracture table with the traction apparatus. The minimally displaced left elbow olecranon fracture had been placed into a long-arm posterior splint; this was carefully positioned across her body. The nonoperative hip was flexed and placed into the well leg farley. Longitudinal traction was applied to the operative hip. Fracture reduction was then performed under fluoroscopic imaging. Once acceptable reduction had been achieved, the left hip was then prepped and draped in a standard sterile fashion using Chlorhexidine prep. I first made an incision just proximal to the greater trochanter in line with the femoral shaft axis, and split the fibers of the iliotibial band. I then bluntly palpated down to the greater trochanter and inserted the guidewire down to the tip of the greater trochanter. It was appropriately positioned on AP and lateral images, and then driven into the proximal femur. I then inserted the soft tissue protector down to the tip of the greater trochanter and then passed the entry reamer over top of the guidewire. It was advanced down towards the lesser trochanter to open the proximal femur. I then inserted the Synthes short TFN attached to the targeting arm into the proximal femur. I malleted it down to an appropriate depth for proper trajectory of the helical blade into the femoral head. Once the nail was at an appropriate depth, I then attached the targeting guide for the helical blade onto the targeting arm. Incision was made in line with the guide through the skin and iliotibial band. The guide sleeve was placed against the lateral cortex of the femur. Guidewire was then inserted through the guide and up into the femoral neck and head. I verified proper placement and trajectory under both AP and lateral images. I advanced the guidewire to the subchondral bone in the femoral head and verified proper depth on orthogonal images. I then measured the depth off of the guidewire. The drill for the helical blade was then set at an appropriate level to match the measured length. The drill was then advanced to the set depth. An appropriate length helical blade was selected and malleted into place over the guidewire. I then deployed the set screw proximally to prevent rotation of the helical blade during fracture compression. Fracture compression was then applied using the compression ring on the helical blade targeting sleeve. I then made an incision for the distal locking screw in line with the drill guide through skin and iliotibial band. I then placed the drill sleeve down on the lateral cortex of the femur and drilled through the distal locking hole. Screw length was then measured off of the calibrated drill bit, and an appropriate length was selected and then inserted. The screw length was verified under fluoroscopic imaging. Final fluoroscopic images were then obtained to ensure proper hardware placement, screw length, and fracture reduction. The wounds were then copiously irrigated with sterile saline. I then closed the iliotibial band and deep dermal tissue with #0 Vicryl suture. Subcutaneous tissues closed with 3-0 Vicryl suture, and skin was closed with henrry. Sterile dressings were then applied with Xeroform, sterile gauze, and foam tape. Drapes were then removed and traction apparatus was disconnected. The patient was awakened from general anesthesia, transferred over to the stretcher, and taken to the Post Anesthesia Care Unit in stable condition. There were no immediate complications from the procedure. I was present and scrubbed for the entire procedure. I attest to the content of the Intraoperative Record and any orders documented therein. Any exceptions are noted below.
--- NOTE | 2020-03-09 17:55 | Anesthesiology Progress Note ---
Date of Service March 09, 2020 Anesthesia Post Procedure Vital Signs Vital Signs: Temp Pulse Pulse Resp BP Pulse Ox 03/09/20 17:50 102 H 17 110/58 L 93 03/09/20 17:40 103 H 18 96/58 L 96 03/09/20 17:30 100 H 15 102/56 L 95 03/09/20 17:20 100 H 17 100/61 95 03/09/20 17:10 103 H 16 102/58 L 98 03/09/20 17:02 97.7 F 106 H 15 106/62 98 03/09/20 14:46 98.1 F 120 H 18 145/77 H 95 03/09/20 07:35 98.1 F 104 H 20 158/75 H 98 03/09/20 06:53 100 H 18 93 03/08/20 23:07 98.2 F 109 H 18 151/67 H 91 Pain Intensity Left Leg: Pain Intensity: 9 Back: Pain Intensity: 8 Transfer of Care Handoff Completed per policy Notes Mental Status: alert / awake / arousable and participated in evaluation Patient Amnestic to Procedure: Yes Nausea / Vomiting: adequately controlled Pain: adequately controlled Airway Patency, RR, SpO2: stable & adequate BP & HR: stable & adequate Hydration State: stable & adequate Neuraxial Anesthesia: was administered and sensory block is resolving Anesthetic Complications: no major complications apparent and Pt Satisfied with anesthetic care
[2020-03-09] MEDS ORDERED: NALOXONE HCL 0.4 MG/1 ML VIAL/CARP IV PRN (18:15)
[2020-03-09] MEDS: SODIUM CHLORIDE 0.9% 1000ML 1,000 ML IV SCH (18:34)
[2020-03-09] MEDS: ACETAMINOPHEN 325 MG TAB PO PRN ×2 (18:44→23:43)
--- NOTE | 2020-03-09 18:54 | Fluoroscopy Report ---
INTRAOPERATIVE RADIOGRAPHS CLINICAL HISTORY: Open reduction and internal fixation of the left femur. Fluoroscopy time: 40 seconds. FINDINGS: 4 spot fluoroscopic views of the left femur are correlated with radiographs dated 0. Intertrochanteric and intramedullary nails have been placed transfixing an intertrochanteric fract ure. A single cortical lag screw transfixes the distal end of the intramedullary nail. Near-anatomic alignment is restored. The orthopedic hardware appears intact. IMPRESSION: Intraoperative images from open reduction and internal fixation of a left femoral fractur e as above. Electronically signed by: Alexsander Mueller M.D. 03/09/2020 6:52 PM
[2020-03-09] MEDS: ATORVASTATIN 20 MG TAB PO SCH (20:56)
[2020-03-10] MEDS: MoRPHine SULFATE 4 MG/ML 1 ML CARP\\VIAL IV PRN ×2 (01:35→18:50)
[2020-03-10] MEDS: oxyCODONE HCL IR 5 MG TAB (IMMEDIATE RELEASE) PO PRN ×3 (03:41→15:19)
[2020-03-10] MEDS: ACETAMINOPHEN 325 MG TAB PO PRN ×2 (03:41→15:19)
[2020-03-10] MEDS: ALBUT/IPRATROP 3MG/0.5MG NEB 3 ML VIAL INH PRN (07:15)
[2020-03-10 07:20] LABS: Hematocrit (blood only) 29.5 % (37-47); Hemoglobin 9.5 g/dL (12.0-16.0); Mean Corpuscular Hemoglobin 28.3 pg (25-34); Mean Corpuscular Hgb Conc 32.2 g/dL (32-36); Mean Corpuscular Volume 87.8 fL (80-100); Platelet Count 180 K/uL (130-400); RDW Coefficient of Variation 14.3 % (11.5-14.5); Red Blood Count 3.36 M/uL (4.2-5.4); White Blood Count 13.29 K/uL (4.8-10.8)
[2020-03-10] MEDS: SODIUM CHLORIDE 0.9% 1000ML 1,000 ML IV SCH (07:28)
[2020-03-10 07:47] LABS: BUN Creatinine Ratio 28.6 (10-20); Calcium 8.4 mg/dl (8.5-10.1); Est GFR (African American) 108.4; Est GFR (Non-African American) 93.5; Magnesium 2.1 mg/dl (1.8-2.4); Phosphorus 1.7 mg/dl (2.5-4.9); Potassium 3.8 mmol/L (3.5-5.1)
[2020-03-10] MEDS: UMECLIDINIUM/VILANTEROL 62.5/25MCG 7 PUFFS/INHALER INH SCH (08:15)
[2020-03-10] MEDS: amLODIPine BESYLATE 5 MG TAB PO SCH (08:15)
[2020-03-10] MEDS: DOCUSATE SODIUM 100 MG CAP PO SCH ×2 (08:15→21:06)
[2020-03-10] MEDS: FLUTICASONE FUROATE 100MCG 14 PUFFS/INHALER INH SCH (08:15)
[2020-03-10] MEDS: DULoxetine HCL 60 MG CAP PO SCH (08:16)
[2020-03-10] MEDS: FAMOTIDINE 20 MG TAB PO SCH (08:16)
[2020-03-10] MEDS: ENOXAPARIN INJ 30 MG/0.3 ML SYR SQ SCH (08:17)
--- NOTE | 2020-03-10 08:47 | Orthopedic Progress Note ---
Date of Service March 10, 2020 Assessment & Plan (1) Closed intertrochanteric fracture of left hip: Postop day 1 status post left TFN Left olecranon fracture -nonoperative treatment PT/OT protocols. Toe-touch weightbearing on the left lower extremity. Nonweightbearing on the left upper extremity. DVT prophylaxis-enoxaparin daily, SCDs Emesis-may be secondary to pain medication versus reflux. We will add pantoprazole. Add tramadol as well to try rather than oxycodone. DC planning-[facility] Admission and Anticipated Discharge Date Admission Date: March 08, 2020 Subjective Postop day 1 Patient sitting up in bed eating her breakfast. At the time of arrival, she was having some emesis of which she states seem more like her acid reflux. She felt that something got stuck in her throat when she tried to drink some water caused her to have some emesis. He states that she has not had any medication for her reflux in some time. She is having hip pain with movement. Otherwise pain is mostly controlled at rest. Left upper extremity is comfortable at this time. No other complaints. Physical Exam Physical Exam: Dressings are clean, dry, and intact of the left lower extremity. Minimal swelling of the left thigh. Calves are soft and nontender. She has good dorsiflexion and plantarflexion of the ankle and toes. History of neuropathy of her feet. Left upper extremity splint is intact. Moving her fingers well. Neurovascular is intact. Cap refills less than 2 seconds. Results & Data ([facility]) Vital Signs (Past 12 Hours) Vital Signs Temp Pulse Resp BP Pulse Ox 03/10/20 07:20 36.5 C 93 H 16 148/71 H 100 03/10/20 07:15 90 19 95 03/10/20 03:42 36.3 C L 103 H 16 146/71 H 94 03/09/20 23:39 37.1 C 106 H 16 135/71 92 Laboratory Results Laboratory Results WBC 13.29 K/uL (4.8-10.8) H 03/10/20 07:03 RBC 3.36 M/uL (4.2-5.4) L 03/10/20 07:03 Hgb 9.5 g/dL (12.0-16.0) L 03/10/20 07:03 Hct 29.5 % (37-47) L 03/10/20 07:03 MCV 87.8 fL (80-100) 03/10/20 07:03 MCH 28.3 pg (25-34) 03/10/20 07:03 MCHC 32.2 g/dL (32-36) 03/10/20 07:03 RDW Std Deviation 45.0 fL (36.4-46.3) 03/10/20 07:03 RDW Coeff of Zhao 14.3 % (11.5-14.5) 03/10/20 07:03 Plt Count 180 K/uL (130-400) 03/10/20 07:03 MPV 10.0 fL (7.4-10.4) 03/10/20 07:03 Immature Gran % (Auto) 0.7 % 03/08/20 10:55 Neut % (Auto) 85.8 % 03/08/20 10:55 Lymph % (Auto) 4.7 % 03/08/20 10:55 [place] % (Auto) 8.2 % 03/08/20 10:55 Eos % (Auto) 0.5 % 03/08/20 10:55 Baso % (Auto) 0.1 % 03/08/20 10:55 Neut # (Auto) 18.79 K/uL (1.4-6.5) H 03/08/20 10:55 Lymph # (Auto) 1.02 K/uL (1.2-3.4) L 03/08/20 10:55 [place] # (Auto) 1.79 K/uL (0.11-0.59) H 03/08/20 10:55 Eos # (Auto) 0.10 K/uL (0-0.5) 03/08/20 10:55 Baso # (Auto) 0.02 K/uL (0-0.2) 03/08/20 10:55 Immature Gran # (Auto) 0.16 K/uL (0.00-0.02) H 03/08/20 10:55 PT 10.7 Seconds (9.0-12.0) 03/08/20 11:51 INR 1.0 (0.9-1.1) 03/08/20 11:51 VBG pH 7.34 (7.36-7.41) L 03/08/20 10:55 VBG pCO2 63 mmHg (38-50) H 03/08/20 10:55 VBG pO2 30 mmHg 03/08/20 10:55 VBG HCO3 34 mmol/L 03/08/20 10:55 VBG O2 Saturation < 60.0 % 03/08/20 10:55 VBG Base Excess 6.3 mEq/L 03/08/20 10:55 Barometric Pressure 738.0 mm/Hg 03/08/20 10:55 Sodium 138 mmol/L (136-145) 03/10/20 07:03 Potassium 3.8 mmol/L (3.5-5.1) 03/10/20 07:03 Chloride 103 mmol/L (98-107) 03/10/20 07:03 Carbon Dioxide 33 mmol/L (21-32) H 03/10/20 07:03 Anion Gap 2.0 (3-11) L 03/10/20 07:03 BUN 15 mg/dl (7-18) 03/10/20 07:03 Creatinine 0.53 mg/dl (0.6-1.2) L 03/10/20 07:03 Est Cr Clr Drug Dosing 54.0 ml/min 03/10/20 07:03 Est GFR ( Amer) 108.4 03/10/20 07:03 Est GFR (Non-Af Amer) 93.5 03/10/20 07:03 BUN/Creatinine Ratio 28.6 (10-20) H 03/10/20 07:03 Glucose 95 mg/dl (70-99) 03/10/20 07:03 Calcium 8.4 mg/dl (8.5-10.1) L 03/10/20 07:03 Phosphorus 1.7 mg/dl (2.5-4.9) L 03/10/20 07:03 Magnesium 2.1 mg/dl (1.8-2.4) 03/10/20 07:03 Total Bilirubin 0.6 mg/dl (0.2-1) 03/08/20 10:55 AST 34 U/L (15-37) 03/08/20 10:55 ALT 53 U/L (12-78) 03/08/20 10:55 Alkaline Phosphatase 107 U/L (45-117) 03/08/20 10:55 Total Creatine Kinase 51 U/L (26-192) 03/08/20 10:55 Troponin I < 0.015 ng/ml (0-0.045) 03/08/20 10:55 Total Protein 7.3 gm/dl (6.4-8.2) 03/08/20 10:55 Albumin 3.5 gm/dl (3.4-5.0) 03/08/20 10:55 Globulin 3.8 gm/dl (2.5-4.0) 03/08/20 10:55 Albumin/Globulin Ratio 0.9 (0.9-2) 03/08/20 10:55 TSH 0.907 uIu/ml (0.300-4.500) 03/08/20 10:55 Urine Color Yellow 03/08/20 10:18 Urine Appearance Clear (Clear) 03/08/20 10:18 Urine pH 6.5 (4.5-7.5) 03/08/20 10:18 Ur Specific [place] 1.016 (1.000-1.030) 03/08/20 10:18 Urine Protein Negative (Negative) 03/08/20 10:18 Urine Glucose (UA) Negative (Negative) 03/08/20 10:18 Urine Ketones Negative (Negative) 03/08/20 10:18 Urine Blood Negative (Negative) 03/08/20 10:18 Urine Nitrite Negative (Negative) 03/08/20 10:18 Urine Bilirubin Negative (Negative) 03/08/20 10:18 Urine Urobilinogen Negative (Negative) 03/08/20 10:18 Ur Leukocyte Esterase Negative (Negative) 03/08/20 10:18 SARS-CoV-2 Ag (Rapid) Negative (Negative) 03/08/20 Unknown Blood Type B Positive 03/09/20 11:35 Antibody Screen NEGATIVE 03/09/20 11:35 (1) Closed intertrochanteric fracture of left hip Encounter type: initial encounter Fracture alignment: displaced Qualified Code(s): S72.142A - Displaced intertrochanteric fracture of left femur, initial encounter for closed fracture
[2020-03-10] MEDS: PANTOprazole 40 MG TAB PO SCH (09:45)
[2020-03-10] MEDS: traMADol HCL 50 MG TABLET PO PRN (09:52)
--- NOTE | 2020-03-10 14:35 | Hospitalist Progress Note ---
Date of Service March 10, 2020 Assessment & Plan (1) Closed intertrochanteric fracture of left hip: Seen on x-ray in the ED. - S/p left TFN on 03/09. - Pain control - Expected acute blood loss anemia - Will give IV iron x 2 doses. - Toe-touch weightbearing on the left lower extremity. Non-weightbearing on the left upper extremity. - Plan for placement. (2) Closed fracture of left olecranon process: Discussed with orthopedics PA. Two fractures seen on CT scan. - Non-operative management. (3) Fall: Patient's history is not ideal, but she denies loss of consciousness with her falls. Likely due to general weakness and cachexia. - PT/OT - CM for placement (4) Leukocytosis: No focal signs/symptoms of infection. CXR and UA both clear on admission. Likely reactive from hip fx. - Monitor -> Improving today. (5) COPD (chronic obstructive pulmonary disease): Patient is still smoking. Mild end-expiratory wheezing. Chronic hypoxemic respiratory failure with need for O2. VBG shows compensated hypercarbia. - Home maintenance inhaler - DuoNebs PRN - Stable today. Still mild wheezing, but no increased work of breathing. (6) Reflux gastritis: - Maalox PRN (7) Malnutrition: BMi is 14.8. Patient looks cachectic on exam. Possibly due to COPD. Severe protein-calorie malnutrition. Unclear if patient is up-to-date on cancer screenings. - [employer] consulted for nutrition assessment - Discuss with patient. - Will order CT chest for lung cancer screening. (8) DVT prophylaxis: Lovenox 30 mg SQ daily Admission and Anticipated Discharge Date Admission Date: March 08, 2020 Subjective Tearful and reports she is scared because she has never not been "in control" of her life in the past. Still having hip pain. Reports no fevers/chills, chest pain, shortness of breath, abdominal pain, nausea, or vomiting. Physical Exam Constitutional: WD/WN, vitals as above Eyes: EOM intact bilaterally; no conjunctival abnormality ENMT: external ear and nose normal, oropharynx normal Neck: trachea midline, no thyromegaly normal visual inspection Respiratory: normal respiratory effort, lungs clear to auscultation no respiratory distress Cardiovascular: Rate/Rhythm: regular rhythm and + tachycardic Heart Sounds: normal S1 and normal S2 Extremities: no edema Gastrointestinal (Abdomen): Inspection/Auscultation: abdomen normal to inspection; abdomen not distended Musculoskeletal: Head/Neck/Chest: normocephalic and head atraumatic Extremities: + limited ROM of extremities (Left leg) and + muscle atrophy; + abnormal strength Skin: no rashes, warm and dry Neurologic: moves all extremities and awake Psychiatric: Orientation: alert, oriented to person and cooperative Results & Data Results & Data ([facility]) Vital Signs (Past 12 Hours) Vital Signs Temp Pulse Resp BP Pulse Ox 03/10/20 10:53 36.5 C 99 H 16 131/74 100 03/10/20 07:20 36.5 C 93 H 16 148/71 H 100 03/10/20 07:15 90 19 95 03/10/20 03:42 36.3 C L 103 H 16 146/71 H 94 PG Care Time/CCT Total # of Minutes Spent Total Time Spent with Patient: Total time spent is greater than 50% in coordination of care (as documented) at patient's floor/unit and/or counseling patient: Coding Level of Care Code 64571 Subseq Hosp Care Lvl 3 Diagnoses Closed intertrochanteric fracture of left hip S72.142A Encounter type: initial encounter Fracture alignment: displaced Closed fracture of left olecranon process S52.022A Encounter type: initial encounter Fall W19.XXXA Encounter type: initial encounter Leukocytosis D72.829 COPD (chronic obstructive pulmonary disease) J44.9 Reflux gastritis K29.60 Malnutrition E46 DVT prophylaxis Z29.9 (1) Closed intertrochanteric fracture of left hip Encounter type: initial encounter Fracture alignment: displaced Qualified Code(s): S72.142A - Displaced intertrochanteric fracture of left femur, initial encounter for closed fracture (2) Closed fracture of left olecranon process Encounter type: initial encounter Qualified Code(s): S52.022A - Displaced fracture of olecranon process without intraarticular extension of left ulna, initial encounter for closed fracture (3) Fall Encounter type: initial encounter Qualified Code(s): W19.XXXA - Unspecified fall, initial encounter
[2020-03-10] MEDS ORDERED: POTASSIUM PHOS 3 MMOL/1 ML INFUSION IV STA (14:44)
[2020-03-10] MEDS ORDERED: POTASSIUM PHOSPHATE 24 MMOL in SODIUM CHLORIDE 0.9% 500 ML IV ONE (15:00)
--- NOTE | 2020-03-10 16:08 | CT Scan Report ---
CT SCAN OF THE CHEST WITHOUT IV CONTRAST CLINICAL HISTORY: Dyspnea. Pneumonia. COMPARISON STUDY: Chest x-ray dated 03/08/2020. TECHNIQUE: CT scan of the thorax was performed from the thoracic inlet to the upper abdomen. Images are reviewed in the axial, sagittal, and coronal planes. IV contrast was not administered for this ex amination as per the referring clinician. A dose lowering technique was utilized adhering to the forrest nciples of TANIA. There is streak artifact from the left arm which could not be elevated above the ch est. CT DOSE: 287.12 mGy.cm FINDINGS: Thyroid: Imaged portions of the thyroid gland are normal in size and attenuation. Thoracic aorta: There is atherosclerotic calcification of the thoracic aorta, which is normal in alma delia jenna and demonstrates standard 3-vessel arch anatomy. Heart: The heart is normal in size and without pericardial effusion. The coronary arteries are densel y calcified. There is diminished attenuation of the cardiac blood pool as compared to the myocardium suggesting anemia. The pulmonary trunk is normal in caliber. Lungs and pleural spaces: Advanced emphysematous change is identified. There is no airspace consolida tion typical for pneumonia. Small pleural effusions are present at the lung bases with associated ate lectasis. The trachea and central airways are clear. Mild diffuse peribronchial thickening is noted. Intralobular septal thickening is seen throughout both lungs, greatest at the lung bases. A 1.3 cm ir regular airspace opacity is seen in the left upper lobe on image #64. A 5 mm right apical nodule is s een on image #48. Mediastinum: There is no mediastinal lymphadenopathy. Ayana: Not well assessed without IV contrast. Axillae: There is no axillary lymphadenopathy. Upper abdomen: Cholecystectomy clips are seen in the right upper quadrant. There is trace perihepatic and perisplenic ascites. Skeletal structures: The skeletal structures are osteopenic. No lytic or blastic bony lesions are see n. Fusion hardware is partially visualized in the lower cervical spine. Degenerative change and calci fied joint bodies are noted in the shoulders. IMPRESSION: 1. Advanced emphysema. 2. No airspace consolidation is seen typical for pneumonia. 3. Diffuse intralobular septal thickening could be seen with acute and/or chronic congestive change. Clinical correlation will be required. 4. Small pleural effusions. 5. A 5 mm pulmonary nodule is seen at the right apex. This is pathologically indeterminant and follow -up is recommended as per the Fleischner criteria. See below. 6. A 1.3 cm irregular opacity in the left upper lobe is indeterminant and likely represents scarring/ atelectasis. This should also be reassessed at follow-up. 7. Small volume upper abdominal ascites. 8. Additional findings as above. Please refer to below summary of Fleischner criteria recommendations for follow-up of incidental CT n odules (Joel Mcdonnell, Guidelines for management of small pulmonary nodules detected on CT scans: A sta tement from the Fleischner Society, Radiology 237: [phone].) SOLID NODULES Solitary nodule size: <6 mm * low risk patients: no follow-up needed * high risk patients: optional CT at 12 months Solitary nodule size: 6-8 mm * low risk patients: follow-up at 6-12 months, then consider further follow-up at 18-24 months * high risk patients: initial follow-up CT at 6-12 months and then at 18-24 months if no change Solitary nodule size: >8 mm * either low or high risk patients - consider follow-up CT at 3 months, and/or CT-PET, and/or biopsy Multiple nodules size: <6 mm * low risk patients: no routine follow-up * high risk patients: optional CT at 12 months Multiple nodules size: 6-8 mm * low risk patients: follow-up at 3-6 months, then consider further follow-up at 18-24 months * high risk patients: follow-up at 3-6 months, then at 18-24 months if no change Multiple nodules size: >8 mm * low risk patients: follow-up at 3-6 months, then consider further follow-up at 18-24 months * high risk patients: follow-up at 3-6 months, then at 18-24 months if no change Note: newly detected indeterminate nodule in persons 35 years of age or older. * low risk patients: minimal or absent history of smoking and/or other known risk factors * high risk patients: history of smoking or of other known risk factors (e.g. first degree relative with lung cancer, or exposure to asbestos, radon, uranium) * if a nodule up to 8 mm is partly solid or is ground glass further follow-up is required after 24 m ont to exclude possible slow growing adenocarcinoma (TRUDY) SUBSOLID NODULES Solitary pure ground-glass nodule * nodule size <6 mm - no CT follow-up required * nodule size >=6 mm - follow-up CT at 6-12 months, then every 2 years until 5 years Solitary part-solid nodule * nodule size <6 mm - no CT follow-up required * nodule size >=6 mm - follow-up CT at 3-6 months. If unchanged, and solid component remains <6 mm, then annual follow-up for 5 years Multiple subsolid nodules * nodule size <6 mm - follow-up CT at 3-6 months, consider further follow-up at 2 and 4 years if sta ble * nodule size >=6 mm - follow-up CT at 3-6 months, subsequent management based on the most suspiciou s nodule(s) ACT 112: Negative or not required by law. Electronically signed by: Alexsander Mueller M.D. 03/10/2020 4:06 PM
[2020-03-10] MEDS: IRON SUCROSE 300 MG in SODIUM CHLORIDE 0.9% 250 ML IV SCH (20:02)
[2020-03-10] MEDS: ATORVASTATIN 20 MG TAB PO SCH (21:06)
[2020-03-10] MEDS: LORazepam 1 MG TAB PO PRN (21:10)
[2020-03-11] MEDS: oxyCODONE HCL IR 5 MG TAB (IMMEDIATE RELEASE) PO PRN ×5 (00:42→20:03)
--- NOTE | 2020-03-11 07:28 | Orthopedic Progress Note ---
Date of Service March 11, 2020 Assessment & Plan (1) Closed intertrochanteric fracture of left hip: Postop day 2 status post left TFN Left olecranon fracture -nonoperative treatment PT/OT protocols. Toe-touch weightbearing on the left lower extremity. Nonweightbearing on the left upper extremity. DVT prophylaxis-enoxaparin daily, SCDs Pain management as written. [facility] planning-[facility] custodial facility Admission and Anticipated Discharge Date Admission Date: March 08, 2020 Subjective POD 2 Pt sleeping upon arrival. Easily awoken. Pain controlled at rest. No new complaints this AM. Physical Exam Physical Exam: Dressings C/D/I LLE. Thigh soft, NT. NV intact. Calves soft, NT. LUE splint intact. Mild swelling in fingers. Moving fingers well. Sensation intact. Cap refill < 2 seconds. Results & Data ([facility] [place]) Vital Signs (Past 12 Hours) Vital Signs Temp Pulse Resp BP Pulse Ox 03/10/20 23:15 36.8 C 103 H 14 143/73 H 95 03/10/20 20:59 37.2 C 102 H 20 133/76 92 (1) Closed intertrochanteric fracture of left hip Encounter type: initial encounter Fracture alignment: displaced Qualified Code(s): S72.142A - Displaced intertrochanteric fracture of left femur, initial encounter for closed fracture
[2020-03-11 07:52] LABS: Hematocrit (blood only) 25.7 % (37-47); Hemoglobin 8.4 g/dL (12.0-16.0); Mean Corpuscular Hemoglobin 28.2 pg (25-34); Mean Corpuscular Hgb Conc 32.7 g/dL (32-36); Mean Corpuscular Volume 86.2 fL (80-100); Mean Platelet Volume 9.9 fL (7.4-10.4); Platelet Count 173 K/uL (130-400); RDW Coefficient of Variation 14.4 % (11.5-14.5); RDW Standard Deviation 43.9 fL (36.4-46.3); Red Blood Count 2.98 M/uL (4.2-5.4); White Blood Count 14.61 K/uL (4.8-10.8)
[2020-03-11] MEDS: UMECLIDINIUM/VILANTEROL 62.5/25MCG 7 PUFFS/INHALER INH SCH (08:02)
[2020-03-11] MEDS: FLUTICASONE FUROATE 100MCG 14 PUFFS/INHALER INH SCH (08:02)
[2020-03-11] MEDS: DULoxetine HCL 60 MG CAP PO SCH (08:03)
[2020-03-11] MEDS: amLODIPine BESYLATE 5 MG TAB PO SCH (08:03)
[2020-03-11] MEDS: DOCUSATE SODIUM 100 MG CAP PO SCH ×2 (08:03→20:02)
[2020-03-11] MEDS: PANTOprazole 40 MG TAB PO SCH (08:03)
[2020-03-11] MEDS: FAMOTIDINE 20 MG TAB PO SCH (08:03)
[2020-03-11] MEDS: ENOXAPARIN INJ 30 MG/0.3 ML SYR SQ SCH (08:28)
[2020-03-11 08:32] LABS: BUN Creatinine Ratio 22.9 (10-20); Calcium 7.8 mg/dl (8.5-10.1); Creatinine Clr Calc Pharmacy 84.1 ml/min; Est GFR (African American) 125.5; Est GFR (Non-African American) 108.2; Magnesium 1.5 mg/dl (1.8-2.4); Phosphorus 1.3 mg/dl (2.5-4.9); Potassium 3.3 mmol/L (3.5-5.1)
[2020-03-11] MEDS ORDERED: POTASSIUM PHOS 3 MMOL/1 ML INFUSION IV STA (08:46)
[2020-03-11] MEDS ORDERED: POTASSIUM PHOSPHATE 30 MMOL in SODIUM CHLORIDE 0.9% 500 ML IV ONE (09:00)
[2020-03-11] MEDS ORDERED: ALUMINUM/MAGNESIUM SUSP 30 ML UDC PO PRN (18:28)
[2020-03-11] MEDS ORDERED: ALUMINUM/MAGNESIUM SUSP 30 ML UDC ONE (18:32)
[2020-03-11 19:17] LABS: Hematocrit (blood only) 26.6 % (37-47); Hemoglobin 8.7 g/dL (12.0-16.0)
[2020-03-11] MEDS: LORazepam 1 MG TAB PO PRN (20:02)
[2020-03-11] MEDS: ATORVASTATIN 20 MG TAB PO SCH (20:02)
[2020-03-11] MEDS: IRON SUCROSE 300 MG in SODIUM CHLORIDE 0.9% 250 ML IV SCH (21:00)
--- NOTE | 2020-03-11 22:40 | Hospitalist Progress Note ---
Date of Service March 11, 2020 Assessment & Plan (1) Closed intertrochanteric fracture of left hip: Seen on x-ray in the ED. - S/p left TFN on 03/09. - Pain control - Expected acute blood loss anemia - blood count has been stable. - Toe-touch weightbearing on the left lower extremity. Non-weightbearing on the left upper extremity. - Plan for placement. (2) Closed fracture of left olecranon process: Discussed with orthopedics PA. Two fractures seen on CT scan. - Non-operative management. (3) Fall: Patient's history is not ideal, but she denies loss of consciousness with her falls. Likely due to general weakness and cachexia. - PT/OT - CM for placement (4) Leukocytosis: No focal signs/symptoms of infection. CXR and UA both clear on admission. Likely reactive from hip fx. - Monitor -> Improving today. (5) COPD (chronic obstructive pulmonary disease): Patient is still smoking. Mild end-expiratory wheezing. Chronic hypoxemic respiratory failure with need for O2. VBG shows compensated hypercarbia. - Home maintenance inhaler - DuoNebs PRN - Stable today. Still mild wheezing, but no increased work of breathing. (6) Reflux gastritis: - Maalox PRN (7) Malnutrition: BMi is 14.8. Patient looks cachectic on exam. Possibly due to COPD. Severe protein-calorie malnutrition. Unclear if patient is up-to-date on cancer screenings. - Wind Operations Supervisor consulted for nutrition assessment - Discuss with patient. - Will order CT chest for lung cancer screening. (8) DVT prophylaxis: Lovenox 30 mg SQ daily Admission and Anticipated Discharge Date Admission Date: March 08, 2020 Subjective 75 yo female reports feeling well. She has no new complaints at this time. Review of Systems Review of Systems: All systems reviewed & are unremarkable except as noted in HPI & below Physical Exam Physical Exam: Constitutional: WD/WN, vitals as above Eyes: EOM intact bilaterally; no conjunctival abnormality ENMT: external ear and nose normal, oropharynx normal Neck: trachea midline, no thyromegaly normal visual inspection Respiratory: normal respiratory effort, lungs clear to auscultation no respiratory distress Cardiovascular: Rate/Rhythm: regular rhythm and + tachycardic Heart Sounds: normal S1 and normal S2 Extremities: no edema Gastrointestinal (Abdomen): Inspection/Auscultation: abdomen normal to inspection; abdomen not distended Musculoskeletal: Head/Neck/Chest: normocephalic and head atraumatic Extremities: + limited ROM of extremities (Left leg) and + muscle atrophy; + abnormal strength Skin: no rashes, warm and dry Neurologic: moves all extremities and awake Psychiatric: Orientation: alert, oriented to person and cooperative Results & Data Results & Data ([place]) Vital Signs (Past 12 Hours) Vital Signs Temp Pulse Resp BP Pulse Ox 03/11/20 22:33 37.3 C 95 H 20 126/71 95 03/11/20 21:17 37.0 C 104 H 20 152/76 H 96 03/11/20 20:56 36.6 C 103 H 20 135/69 03/11/20 15:14 36.6 C 114 H 19 128/84 90 PG Care Time/CCT Total # of Minutes Spent Total Time Spent with Patient: Total time spent is greater than 50% in coordination of care (as documented) at patient's floor/unit and/or counseling patient: Coding Level of Care Code 19681 Subseq Hosp Care Lvl 3 Diagnoses Closed intertrochanteric fracture of left hip S72.142A Encounter type: initial encounter Fracture alignment: displaced Closed fracture of left olecranon process S52.022A Encounter type: initial encounter Fall W19.XXXA Encounter type: initial encounter Leukocytosis D72.829 COPD (chronic obstructive pulmonary disease) J44.9 Reflux gastritis K29.60 Malnutrition E46 DVT prophylaxis Z29.9 Time Spent (min) 35 (1) Fall Encounter type: initial encounter Qualified Code(s): W19.XXXA - Unspecified fall, initial encounter (2) Closed fracture of left olecranon process Encounter type: initial encounter Qualified Code(s): S52.022A - Displaced fracture of olecranon process without intraarticular extension of left ulna, initial encounter for closed fracture (3) Closed intertrochanteric fracture of left hip Encounter type: initial encounter Fracture alignment: displaced Qualified Code(s): S72.142A - Displaced intertrochanteric fracture of left femur, initial encounter for closed fracture
[2020-03-12] MEDS: oxyCODONE HCL IR 5 MG TAB (IMMEDIATE RELEASE) PO PRN ×3 (03:33→19:45)
[2020-03-12 06:03] LABS: Basophils # (auto) 0.02 K/uL (0-0.2); Basophils % (auto) 0.2 %; Eosinophils # (auto) 0.29 K/uL (0-0.5); Eosinophils % (auto) 2.2 %; Hematocrit (blood only) 26.9 % (37-47); Hemoglobin 8.8 g/dL (12.0-16.0); Immature Granulocytes # (auto) 0.08 K/uL (0.00-0.02); Immature Granulocytes % (auto) 0.6 %; Lymphocytes # (auto) 1.55 K/uL (1.2-3.4); Lymphocytes % (auto) 11.7 %; Mean Corpuscular Hgb Conc 32.7 g/dL (32-36); Mean Corpuscular Volume 85.7 fL (80-100); Mean Platelet Volume 9.9 fL (7.4-10.4); Monocytes # (auto) 1.62 K/uL (0.11-0.59); Monocytes % (auto) 12.2 %; Neutrophils # (auto) 9.67 K/uL (1.4-6.5); Neutrophils % (auto) 73.1 %; Platelet Count 180 K/uL (130-400); RDW Coefficient of Variation 15.1 % (11.5-14.5); RDW Standard Deviation 45.3 fL (36.4-46.3); Red Blood Count 3.14 M/uL (4.2-5.4); White Blood Count 13.23 K/uL (4.8-10.8)
--- NOTE | 2020-03-12 07:25 | Orthopedic Progress Note ---
Date of Service March 12, 2020 Assessment & Plan (1) Closed intertrochanteric fracture of left hip: Postop day 3 status post left TFN Left olecranon fracture -nonoperative treatment PT/OT protocols. Toe-touch weightbearing on the left lower extremity. Nonweightbearing on the left upper extremity. DVT prophylaxis-enoxaparin daily, SCDs Pain management as written. DC planning-[facility] Ortho will sign off at this time. Instructions are in chart. Please call with any questions or concerns. F/u with Dr. Vazquez 10-14 days from surgery. Admission and Anticipated Discharge Date Admission Date: March 08, 2020 Subjective POD 3 Pt resting in bed this morning, alert. Pain controlled at rest. No new complaints this AM. Review of Systems Review of Systems: All systems reviewed & are unremarkable except as noted in HPI & below Physical Exam Physical Exam: Left arm splint is c/d/i. Finger are mobile with good solid waste facility operator strength. Mild swelling into hand. N/v status and sensation intact. Left hip-dressings are c/d/i, no visible drainage. No calf tenderness. Good dorsiflexion, toes mobile. Distally n/v status and sensation are intact. Constitutional: well developed and well nourished; no acute distress Results & Data ([facility]) Vital Signs (Past 12 Hours) Vital Signs Temp Pulse Resp BP Pulse Ox 03/11/20 23:17 37.1 C 110 H 14 132/73 92 03/11/20 22:33 37.3 C 95 H 20 126/71 95 03/11/20 21:17 37.0 C 104 H 20 152/76 H 96 03/11/20 20:56 36.6 C 103 H 20 135/69 (1) Closed intertrochanteric fracture of left hip Encounter type: initial encounter Fracture alignment: displaced Qualified Code(s): S72.142A - Displaced intertrochanteric fracture of left femur, initial encounter for closed fracture
[2020-03-12] MEDS: FLUTICASONE FUROATE 100MCG 14 PUFFS/INHALER INH SCH (07:39)
[2020-03-12] MEDS: traMADol HCL 50 MG TABLET PO PRN (07:39)
[2020-03-12] MEDS: UMECLIDINIUM/VILANTEROL 62.5/25MCG 7 PUFFS/INHALER INH SCH (07:39)
[2020-03-12] MEDS: DULoxetine HCL 60 MG CAP PO SCH (07:40)
[2020-03-12] MEDS: PANTOprazole 40 MG TAB PO SCH (07:40)
[2020-03-12] MEDS: DOCUSATE SODIUM 100 MG CAP PO SCH ×2 (07:40→21:21)
[2020-03-12] MEDS: FAMOTIDINE 20 MG TAB PO SCH (07:40)
[2020-03-12] MEDS: amLODIPine BESYLATE 5 MG TAB PO SCH (07:40)
[2020-03-12] MEDS: ENOXAPARIN INJ 30 MG/0.3 ML SYR SQ SCH (07:41)
[2020-03-12 09:10] LABS: BUN Creatinine Ratio 14.5 (10-20); Creatinine Clr Calc Pharmacy 77.3 ml/min; Est GFR (Non-African American) 105.3; Magnesium 1.6 mg/dl (1.8-2.4); Potassium 3.7 mmol/L (3.5-5.1)
[2020-03-12 09:15] LABS: Phosphorus 1.6 mg/dl (2.5-4.9)
[2020-03-12] MEDS ORDERED: POTASSIUM PHOS 3 MMOL/1 ML INFUSION IV STA (16:14)
[2020-03-12] MEDS ORDERED: POTASSIUM PHOSPHATE 24 MMOL in SODIUM CHLORIDE 0.9% 500 ML IV ONE (16:30)
[2020-03-12] MEDS: MAGNESIUM SULFATE / D5W 1 GM/100 ML BAG IV SCH ×2 (17:02→19:39)
[2020-03-12] MEDS: LORazepam 1 MG TAB PO PRN (19:39)
[2020-03-12] MEDS: ATORVASTATIN 20 MG TAB PO SCH (21:22)
--- NOTE | 2020-03-12 23:25 | Hospitalist Progress Note ---
Date of Service March 12, 2020 Assessment & Plan (1) Closed intertrochanteric fracture of left hip: Seen on x-ray in the ED. - S/p left TFN on 03/09. - Pain control - Expected acute blood loss anemia - blood count has been stable. - Toe-touch weightbearing on the left lower extremity. Non-weightbearing on the left upper extremity. - Plan for placement. needs auth. (2) Closed fracture of left olecranon process: Discussed with orthopedics PA. Two fractures seen on CT scan. - Non-operative management. (3) Fall: Patient's history is not ideal, but she denies loss of consciousness with her falls. Likely due to general weakness and cachexia. - PT/OT - CM for placement (4) Leukocytosis: No focal signs/symptoms of infection. CXR and UA both clear on admission. Likely reactive from hip fx. - Monitor -> Improving today. (5) COPD (chronic obstructive pulmonary disease): Patient is still smoking. Mild end-expiratory wheezing. Chronic hypoxemic respiratory failure with need for O2. VBG shows compensated hypercarbia. - Home maintenance inhaler - DuoNebs PRN - Stable today. Still mild wheezing, but no increased work of breathing. (6) Reflux gastritis: - Maalox PRN (7) Malnutrition: BMi is 14.8. Patient looks cachectic on exam. Possibly due to COPD. Severe protein-calorie malnutrition. Unclear if patient is up-to-date on cancer screenings. - Baker Chef consulted for nutrition assessment - Discuss with patient. - Will order CT chest for lung cancer screening. (8) DVT prophylaxis: Lovenox 30 mg SQ daily (9) Tachycardia: has remained tachy thorughout the day, will transfer to [facility]/tele and check her rhythm on monitor. Admission and Anticipated Discharge Date Admission Date: March 08, 2020 Subjective Patient reports feeling well. She has no new complaints Review of Systems Review of Systems: All systems reviewed & are unremarkable except as noted in HPI & below Physical Exam Physical Exam: Constitutional: WD/WN, vitals as above Eyes: EOM intact bilaterally; no conjunctival abnormality ENMT: external ear and nose normal, oropharynx normal Neck: trachea midline, no thyromegaly normal visual inspection Respiratory: normal respiratory effort, lungs clear to auscultation no respiratory distress Cardiovascular: Rate/Rhythm: regular rhythm and + tachycardic Heart Sounds: normal S1 and normal S2 Extremities: no edema Gastrointestinal (Abdomen): Inspection/Auscultation: abdomen normal to inspection; abdomen not distended Musculoskeletal: Head/Neck/Chest: normocephalic and head atraumatic Extremities: + limited ROM of extremities (Left leg) and + muscle atrophy; + abnormal strength Skin: no rashes, warm and dry Neurologic: moves all extremities and awake Psychiatric: Orientation: alert, oriented to person and cooperative Results & Data Results & Data ([facility]) Vital Signs (Past 12 Hours) Vital Signs Temp Pulse Pulse Pulse Resp BP Pulse Ox 03/12/20 23:12 95 H 03/12/20 22:23 36.9 C 92 H 18 122/74 94 03/12/20 18:58 37 C 99 H 18 128/72 95 03/12/20 18:24 36.9 C 108 H 18 134/61 93 03/12/20 15:45 36.6 C 111 H 19 143/76 H 92 PG Care Time/CCT Total # of Minutes Spent Total Time Spent with Patient: Total time spent is greater than 50% in coordination of care (as documented) at patient's floor/unit and/or counseling patient: Coding Level of Care Code 07937 Subseq Hosp Care Lvl 3 Diagnoses Closed intertrochanteric fracture of left hip S72.142A Encounter type: initial encounter Fracture alignment: displaced Closed fracture of left olecranon process S52.022A Encounter type: initial encounter Fall W19.XXXA Encounter type: initial encounter Leukocytosis D72.829 COPD (chronic obstructive pulmonary disease) J44.9 Reflux gastritis K29.60 Malnutrition E46 DVT prophylaxis Z29.9 Tachycardia R00.0 (1) Fall Encounter type: initial encounter Qualified Code(s): W19.XXXA - Unspecified fall, initial encounter (2) Closed fracture of left olecranon process Encounter type: initial encounter Qualified Code(s): S52.022A - Displaced fracture of olecranon process without intraarticular extension of left ulna, initial encounter for closed fracture (3) Closed intertrochanteric fracture of left hip Encounter type: initial encounter Fracture alignment: displaced Qualified Code(s): S72.142A - Displaced intertrochanteric fracture of left femur, initial encounter for closed fracture
[2020-03-13] MEDS: traMADol HCL 50 MG TABLET PO PRN ×3 (01:29→20:56)
[2020-03-13] MEDS: oxyCODONE HCL IR 5 MG TAB (IMMEDIATE RELEASE) PO PRN ×4 (04:32→17:36)
[2020-03-13] MEDS: FLUTICASONE FUROATE 100MCG 14 PUFFS/INHALER INH SCH (10:35)
[2020-03-13] MEDS: UMECLIDINIUM/VILANTEROL 62.5/25MCG 7 PUFFS/INHALER INH SCH (10:35)
[2020-03-13] MEDS: DULoxetine HCL 60 MG CAP PO SCH (10:37)
[2020-03-13] MEDS: DOCUSATE SODIUM 100 MG CAP PO SCH ×2 (10:37→20:58)
[2020-03-13] MEDS: amLODIPine BESYLATE 5 MG TAB PO SCH (10:37)
[2020-03-13] MEDS: ENOXAPARIN INJ 30 MG/0.3 ML SYR SQ SCH (10:37)
[2020-03-13] MEDS: FAMOTIDINE 20 MG TAB PO SCH (10:38)
[2020-03-13] MEDS: PANTOprazole 40 MG TAB PO SCH ×2 (10:38→20:57)
--- NOTE | 2020-03-13 12:37 | Hospitalist Progress Note ---
Date of Service March 13, 2020 Assessment & Plan (1) Closed intertrochanteric fracture of left hip: Seen on x-ray in the ED. - S/p left TFN on 03/09. - Pain control - Expected acute blood loss anemia - Got IV iron x 2 doses. - Toe-touch weightbearing on the left lower extremity. Non-weightbearing on the left upper extremity. - Plan for placement. - Await[facility] bed at [facility]. - Will need to see Dr. Virgilio Vazquez the first week of March for follow-up. (2) Closed fracture of left olecranon process: Discussed with orthopedics PA. Two fractures seen on CT scan. - Non-operative management. (3) Hypertension: BP is 145/75 today. - Continue amlodipine (4) Fall: Patient's history is not ideal, but she denies loss of consciousness with her falls. Likely due to general weakness and cachexia. - PT/OT - CM for placement (5) Leukocytosis: No focal signs/symptoms of infection. CXR and UA both clear on admission. Likely reactive from hip fx. - Monitor -> Improving, though still mildly elevated. (6) COPD (chronic obstructive pulmonary disease): Patient is still smoking. Mild end-expiratory wheezing. Chronic hypoxemic respiratory failure with need for O2. VBG shows compensated hypercarbia. - Home maintenance inhalers - DuoNebs PRN - Stable today. No wheezing and no increased work of breathing. (7) Reflux gastritis: - Maalox PRN (8) Malnutrition: BMi is 14.8. Patient looks cachectic on exam. Possibly due to COPD. Severe protein-calorie malnutrition. Unclear if patient is up-to-date on cancer screenings. CT chest on 03/10 with 1.3 cm irregular opacity in the left upper lobe is indeterminant and likely represents scarring/atelectasis. - Bindery Technician consulted for nutrition assessment - Repeat chest CT in 3 months. (9) DVT prophylaxis: Lovenox 30 mg SQ daily Admission and Anticipated Discharge Date Admission Date: March 08, 2020 Subjective Still having significant heartburn. No other complaints today. Reports no fevers /chills, chest pain, shortness of breath, abdominal pain, nausea, or vomiting. Physical Exam Constitutional: WD/WN, vitals as above Eyes: EOM intact bilaterally; no conjunctival abnormality ENMT: external ear and nose normal, oropharynx normal Neck: trachea midline, no thyromegaly normal visual inspection Respiratory: normal respiratory effort, lungs clear to auscultation no respiratory distress Cardiovascular: Rate/Rhythm: regular rhythm and + tachycardic Heart Sounds: normal S1 and normal S2 Extremities: no edema Gastrointestinal (Abdomen): Inspection/Auscultation: abdomen normal to inspection; abdomen not distended Musculoskeletal: Head/Neck/Chest: normocephalic and head atraumatic Extremities: + limited ROM of extremities (Left leg) and + muscle atrophy; + abnormal strength Skin: no rashes, warm and dry Neurologic: moves all extremities and awake Psychiatric: Orientation: alert, oriented to person and cooperative Results & Data Results & Data ([facility]) Vital Signs (Past 12 Hours) Vital Signs Temp Pulse Pulse Pulse Resp BP Pulse Ox 03/13/20 12:11 36.7 C 105 H 16 145/74 H 96 03/13/20 08:00 92 H 03/13/20 07:38 36.8 C 54 L 16 159/55 H 97 03/13/20 03:04 36.9 C 88 16 125/70 95 PG Care Time/CCT Total # of Minutes Spent Total Time Spent with Patient: Total time spent is greater than 50% in coordination of care (as documented) at patient's floor/unit and/or counseling patient: Coding Level of Care Code 05402 Subseq Hosp Care Lvl 3 Diagnoses Closed intertrochanteric fracture of left hip S72.142A Encounter type: initial encounter Fracture alignment: displaced Closed fracture of left olecranon process S52.022A Encounter type: initial encounter Hypertension I10 Fall W19.XXXA Encounter type: initial encounter Leukocytosis D72.829 COPD (chronic obstructive pulmonary disease) J44.9 Reflux gastritis K29.60 Malnutrition E46 DVT prophylaxis Z29.9 (1) Closed intertrochanteric fracture of left hip Encounter type: initial encounter Fracture alignment: displaced Qualified Code(s): S72.142A - Displaced intertrochanteric fracture of left femur, initial encounter for closed fracture (2) Closed fracture of left olecranon process Encounter type: initial encounter Qualified Code(s): S52.022A - Displaced fracture of olecranon process without intraarticular extension of left ulna, initial encounter for closed fracture (3) Fall Encounter type: initial encounter Qualified Code(s): W19.XXXA - Unspecified fall, initial encounter
[2020-03-13] MEDS: LORazepam 1 MG TAB PO PRN (20:57)
[2020-03-13] MEDS: ATORVASTATIN 20 MG TAB PO SCH (20:57)
[2020-03-14] MEDS: oxyCODONE HCL IR 5 MG TAB (IMMEDIATE RELEASE) PO PRN ×5 (00:04→21:20)
[2020-03-14] MEDS ORDERED: METOPROLOL TARTRATE 1 MG/ML VIAL IV STA (04:06)
[2020-03-14] MEDS ORDERED: METOPROLOL TARTRATE 1 MG/ML VIAL IV ONE (04:08)
[2020-03-14] MEDS ORDERED: SODIUM CHLORIDE 0.9% 1000ML 250 ML IV ONE (04:16)
[2020-03-14 04:39] LABS: Hematocrit (blood only) 27.7 % (37-47); Mean Corpuscular Hemoglobin 28.6 pg (25-34); Mean Corpuscular Hgb Conc 32.5 g/dL (32-36); Mean Corpuscular Volume 87.9 fL (80-100); Mean Platelet Volume 9.9 fL (7.4-10.4); Nucleated RBC # (auto) 0.02 K/uL (0-0); Nucleated RBC % (auto) 0.2 %; Platelet Count 218 K/uL (130-400); RDW Coefficient of Variation 16.2 % (11.5-14.5); Red Blood Count 3.15 M/uL (4.2-5.4); White Blood Count 14.15 K/uL (4.8-10.8)
--- NOTE | 2020-03-14 04:46 | Communication Note ---
Date of Service: March 14, 2020 Approx 03:45am notified by nursing that patient had complaints of dyspnea with HR into the 150s-160s. Immediately went to assess patient. There was no worsening oxygen requirement or decrease in O2 stat. Prior to symptoms, aide was assisting patient with toileting and there was some exertion on patient's part. Lucina did not endorse chest pain or pain with inspiration. No nausea, lightheadedness, diaphoresis. Her HR at bedside was 120s but without obvious irregular rhythm on auscultation. There was no crackles at lung bases but lung sounds diminished with some mild faint expiratory wheeze on the right. Initial concerns included acute MA, PE from blood thrombus with higher suspicion for possible fat embolus because of fractures, atrial fibrillation with pulmonary edema was another consideration. ECG obtained with poor quality in lateral leads, was concerned that possibly there was ST segment elevation in V2-V3, but with repeat ECG with better quality there was no ST elevation in V3. There was questionable ST elevation in V2 on repeat but this wasn't seen on ECG just taken prior and there were no reciprocal ST segment depressions. Labs were ordered for considerations for electrolyte abnormalities that could be corrected if abnormal. Troponin was initially added as well. CBC was drawn at same time since was AM lab, as to ensure that compensation wasn't secondary to drop in Hgb although no active bleeding. Initial thought/concern was fat pulmonary embolism since appeared to be acute change. Hastily ordered a CTA chest which I canceled as did not appear to be needed as improved to baseline with medication management. Lopressor 2.5mg IV was given stat to help slow rate but also to see irregular rhythm on tele. She also appeared dry and noted to have poor PO intake today. A NSS 250cc Bolus was ordered as cardiovascular compensation could be from volume depletion. Her symptoms resolved and HR went back to baseline following medication. Suspect that over exerted herself with activity of toileting transfer leading to increase HR and dyspnea from exertional activity. Also, some volume depletion that was corrected with a small bolus. In retrospect, troponin wasn't needed, but was drawn while I was clinically managing patient acutely on floor. Patient was resting with comfort and again noted to have resolution of symptoms, she was thankful for clinical attention/management. Will continue to monitor for any other changes. Resident Activity Tracking Resident Involvement: Resident Care Provided Care Provided: [facility] Medicine
[2020-03-14 04:58] LABS: BUN Creatinine Ratio 8.6 (10-20); Blood Urea Nitrogen 5 mg/dl (7-18); Calcium 8.2 mg/dl (8.5-10.1); Carbon Dioxide 31 mmol/L (21-32); Chloride 102 mmol/L (98-107); Est GFR (African American) 107.1; Est GFR (Non-African American) 92.4; Glucose 145 mg/dl (70-99); Magnesium 1.6 mg/dl (1.8-2.4); Potassium 3.8 mmol/L (3.5-5.1); Sodium 135 mmol/L (136-145)
[2020-03-14] MEDS ORDERED: MAGNESIUM SULFATE / D5W 1 GM/100 ML BAG IV ONE (05:01)
[2020-03-14 05:03] LABS: Troponin I < 0.015 ng/ml (0-0.045)
[2020-03-14] MEDS: DULoxetine HCL 60 MG CAP PO SCH (07:34)
[2020-03-14] MEDS: FAMOTIDINE 20 MG TAB PO SCH (07:34)
[2020-03-14] MEDS: FLUTICASONE FUROATE 100MCG 14 PUFFS/INHALER INH SCH (07:34)
[2020-03-14] MEDS: UMECLIDINIUM/VILANTEROL 62.5/25MCG 7 PUFFS/INHALER INH SCH (07:34)
[2020-03-14] MEDS: amLODIPine BESYLATE 5 MG TAB PO SCH (07:34)
[2020-03-14] MEDS: DOCUSATE SODIUM 100 MG CAP PO SCH ×2 (07:34→20:03)
[2020-03-14] MEDS: ENOXAPARIN INJ 30 MG/0.3 ML SYR SQ SCH (07:34)
--- NOTE | 2020-03-14 08:06 | Electrocardiogram Report ---
Test Reason : Blood Pressure : / mmHG Vent. 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
[2020-03-14] MEDS: MAGNESIUM SULFATE / D5W 1 GM/100 ML BAG IV SCH ×2 (10:21→12:06)
--- NOTE | 2020-03-14 12:07 | Hospitalist Progress Note ---
Date of Service March 14, 2020 Assessment & Plan (1) Tachycardia: Overnight of 03/13-03/14, she got tachycardic to the 140-150s range with significant shortness of breath. Full work-up revealed just sinus tachycardia. I think this is largely due to poor conditioning as EKG and troponin were unrevealing. - Presently HR back to 90s. - Monitor (2) Closed intertrochanteric fracture of left hip: Seen on x-ray in the ED. - S/p left TFN on 03/09. - Expected acute blood loss anemia - Got IV iron x 2 doses. - Toe-touch weightbearing on the left lower extremity. Non-weightbearing on the left upper extremity. - Plan for placement. - Awaiting bed at [facility] vs. [facility]. - Will need to see Dr. Virgilio Vazquez the first week of March for follow-up. (3) Closed fracture of left olecranon process: Discussed with orthopedics PA. Two fractures seen on CT scan. - Non-operative management. (4) Hypertension: BP is 135/55 today. - Continue amlodipine (5) Fall: Patient's history is not ideal, but she denies loss of consciousness with her falls. Likely due to general weakness and cachexia. - PT/OT - CM for placement - Pending (6) Leukocytosis: No focal signs/symptoms of infection. CXR and UA both clear on admission. Likely reactive from hip fx. - Monitor -> Improving, though still mildly elevated. No fevers. (7) COPD (chronic obstructive pulmonary disease): Patient is still smoking. Mild end-expiratory wheezing. Chronic hypoxemic respiratory failure with need for O2. VBG shows compensated hypercarbia. - Home maintenance inhalers - DuoNebs PRN - Stable today. No wheezing and no increased work of breathing. (8) Reflux gastritis: - Maalox PRN (9) Malnutrition: BMI is 14.8. Patient looks cachectic on exam. Possibly due to COPD. Severe protein-calorie malnutrition. Patient reports colonoscopy a few years ago that was normal. Was planned to have one in February, but cancelled due to her poor pulmonary status. CT chest on 03/10 with 1.3 cm irregular opacity in the left upper lobe is indeterminant and likely represents scarring/atelectasis. - Net Software Architect consulted for nutrition assessment - Repeat chest CT in 3 months. (10) DVT prophylaxis: Lovenox 30 mg SQ daily Admission and Anticipated Discharge Date Admission Date: March 08, 2020 Subjective Was very short of breath overnight, but now she is feeling back to baseline. Reports no fevers/chills, chest pain, shortness of breath, abdominal pain, nausea, or vomiting. Physical Exam Constitutional: WD/WN, vitals as above Eyes: EOM intact bilaterally; no conjunctival abnormality ENMT: external ear and nose normal, oropharynx normal Neck: trachea midline, no thyromegaly normal visual inspection Respiratory: normal respiratory effort, lungs clear to auscultation no respiratory distress Cardiovascular: Rate/Rhythm: regular rhythm and + tachycardic Heart Sounds: normal S1 and normal S2 Extremities: no edema Gastrointestinal (Abdomen): Inspection/Auscultation: abdomen normal to inspection; abdomen not distended Musculoskeletal: Head/Neck/Chest: normocephalic and head atraumatic Extremities: + limited ROM of extremities (Left leg) and + muscle atrophy; + abnormal strength Skin: no rashes, warm and dry Neurologic: moves all extremities and awake Psychiatric: Orientation: alert, oriented to person and cooperative Results & Data Results & Data ([facility]) Vital Signs (Past 12 Hours) Vital Signs Temp Pulse Pulse Pulse Resp BP BP 03/14/20 11:29 36.4 C L 95 H 16 03/14/20 08:00 91 H 03/14/20 07:33 36.7 C 98 H 16 135/72 03/14/20 04:53 103 H 22 03/14/20 04:15 118 H 162/80 H 03/14/20 03:51 136 H 162/80 H 03/14/20 02:55 36.8 C 69 20 120/74 BP Pulse Ox 03/14/20 11:29 128/56 L 100 03/14/20 08:00 03/14/20 07:33 96 03/14/20 04:53 120/69 98 03/14/20 04:15 03/14/20 03:51 03/14/20 02:55 95 PG Care Time/CCT Total # of Minutes Spent Total Time Spent with Patient: Total time spent is greater than 50% in coordination of care (as documented) at patient's floor/unit and/or counseling patient: Coding Level of Care Code 34782 Subseq Hosp Care Lvl 3 Diagnoses Tachycardia R00.0 Closed intertrochanteric fracture of left hip S72.142A Encounter type: initial encounter Fracture alignment: displaced Closed fracture of left olecranon process S52.022A Encounter type: initial encounter Hypertension I10 Fall W19.XXXA Encounter type: initial encounter Leukocytosis D72.829 COPD (chronic obstructive pulmonary disease) J44.9 Reflux gastritis K29.60 Malnutrition E46 DVT prophylaxis Z29.9 (1) Closed intertrochanteric fracture of left hip Encounter type: initial encounter Fracture alignment: displaced Qualified Code(s): S72.142A - Displaced intertrochanteric fracture of left femur, initial encounter for closed fracture (2) Closed fracture of left olecranon process Encounter type: initial encounter Qualified Code(s): S52.022A - Displaced fracture of olecranon process without intraarticular extension of left ulna, initial encounter for closed fracture (3) Fall Encounter type: initial encounter Qualified Code(s): W19.XXXA - Unspecified fall, initial encounter
[2020-03-14] MEDS: traMADol HCL 50 MG TABLET PO PRN (18:32)
[2020-03-14] MEDS: LORazepam 1 MG TAB PO PRN (20:01)
[2020-03-14] MEDS: ATORVASTATIN 20 MG TAB PO SCH (20:02)
[2020-03-14] MEDS: PANTOprazole 40 MG TAB PO SCH (20:02)
[2020-03-15] MEDS: oxyCODONE HCL IR 5 MG TAB (IMMEDIATE RELEASE) PO PRN ×2 (05:17→11:23)
[2020-03-15] MEDS: UMECLIDINIUM/VILANTEROL 62.5/25MCG 7 PUFFS/INHALER INH SCH (07:40)
[2020-03-15] MEDS: FLUTICASONE FUROATE 100MCG 14 PUFFS/INHALER INH SCH (07:40)
[2020-03-15] MEDS: DOCUSATE SODIUM 100 MG CAP PO SCH (07:41)
[2020-03-15] MEDS: ENOXAPARIN INJ 30 MG/0.3 ML SYR SQ SCH (07:41)
[2020-03-15] MEDS: amLODIPine BESYLATE 5 MG TAB PO SCH (07:41)
[2020-03-15] MEDS: DULoxetine HCL 60 MG CAP PO SCH (07:41)
[2020-03-15] MEDS: FAMOTIDINE 20 MG TAB PO SCH (07:42)
[2020-03-15] MEDS: traMADol HCL 50 MG TABLET PO PRN (07:42)
[2020-03-15 07:49] LABS: Hematocrit (blood only) 26.8 % (37-47); Hemoglobin 8.7 g/dL (12.0-16.0); Mean Corpuscular Hemoglobin 28.5 pg (25-34); Mean Corpuscular Hgb Conc 32.5 g/dL (32-36); Mean Corpuscular Volume 87.9 fL (80-100); Mean Platelet Volume 9.5 fL (7.4-10.4); Platelet Count 206 K/uL (130-400); RDW Coefficient of Variation 17.4 % (11.5-14.5); RDW Standard Deviation 50.1 fL (36.4-46.3); Red Blood Count 3.05 M/uL (4.2-5.4); White Blood Count 10.11 K/uL (4.8-10.8)
[2020-03-15 08:23] LABS: BUN Creatinine Ratio 10.9 (10-20); Calcium 8.6 mg/dl (8.5-10.1); Creatinine Clr Calc Pharmacy 78.5 ml/min; Est GFR (African American) 120.9; Est GFR (Non-African American) 104.4; Magnesium 1.7 mg/dl (1.8-2.4); Potassium 3.6 mmol/L (3.5-5.1)
[2020-03-15 08:25] LABS: Phosphorus 2.7 mg/dl (2.5-4.9)
[2020-03-15] MEDS: MAGNESIUM SULFATE / D5W 1 GM/100 ML BAG IV SCH ×2 (10:13→11:49)
--- NOTE | 2020-03-15 16:15 | Discharge Summary ---
Date of Service March 15, 2020 Admission HPI Per Admitting Provider 75yo F w/ hx of COPD who presents after a fall at home. Per the patient, she has been having a lot of falls at home. This morning, she attempted to go to the bathroom and fell. She has had several rounds of pain med ication and is not a great historian due to lethargy, but she does not appear to endorse any loss of consciousness at the time. She endorses left hip pain and left elbow pain, but otherwise denies any other areas of pain, denies nausea/vomiting, denies any chest pain, denies any shortness of breath, fevers or chills. Principal Diagnosis Left hip fracture Discharge Exam Constitutional WD/WN, vitals as above Eyes EOM intact bilaterally; no conjunctival abnormality ENMT external ear and nose normal, oropharynx normal Neck trachea midline, no thyromegaly normal visual inspection Respiratory normal respiratory effort, lungs clear to auscultation no respiratory distress Cardiovascular Rate/Rhythm: regular rhythm and + tachycardic Heart Sounds: normal S1 and normal S2 Extremities: no edema Gastrointestinal (Abdomen) Inspection/Auscultation: abdomen normal to inspection; abdomen not distended Musculoskeletal Head/Neck/Chest: normocephalic and head atraumatic Extremities: + limited ROM of extremities (Left leg) and + muscle atrophy; + abnormal strength Skin no rashes, warm and dry Neurologic moves all extremities and awake Psychiatric Orientation: alert, oriented to person and cooperative Discharge Data Allergies Allergy/AdvReac Type Severity Reaction Status Date / Time No Known Allergies Allergy Unverified 03/08/20 12:17 Consultations 03/08/20 12:19 ED Decision to Admit Stat 03/08/20 14:26 Consult Orthopedic Surgery Routine 03/09/20 18:15 Consult Case Management - Discharge Planning Routine Procedures Performed Operation Date: 03/09/20 07:00 Actual Procedures p Left Troch Nail(Left) - Virgilio Vazquez M.D. Ordered Studies 03/08/20 10:37 CT cervical spine wo con Stat CT head/brain wo con Stat 03/08/20 14:58 CT elbow LT wo con Urgent 03/09/20 15:00 FL fluoroscopy <1hr Routine FL hip LT 2-3V Routine 03/10/20 14:44 CT chest wo con Routine Hospital Course (1) Closed intertrochanteric fracture of left hip: Seen on x-ray in the ED. - S/p left TFN on 03/09. - Expected acute blood loss anemia - Got IV iron x 2 doses. - Toe-touch weightbearing on the left lower extremity. Non-weightbearing on the left upper extremity. - Will need to see Dr. Virgilio Vazquez the first week of March for follow-up. (2) Closed fracture of left olecranon process: Discussed with orthopedics PA. Two fractures seen on CT scan. - Non-operative management. - Non-weightbearing with left arm. (3) Tachycardia: Overnight of 03/13-03/14, she got tachycardic to the 140-150s range with significant shortness of breath. Full work-up revealed just sinus tachycardia. I think this is largely due to poor conditioning as EKG and troponin were unrevealing. - Presently HR back to 90s. - Stable her entire admission. Presently no indication of other process ongoing. (4) Hypertension: BP is 135/55 today. - Continue amlodipine (5) Fall: Patient's history is not ideal, but she denies loss of consciousness with her falls. Likely due to general weakness and cachexia. - PT/OT - CM for placement (6) Leukocytosis: No focal signs/symptoms of infection. CXR and UA both clear on admission. Likely reactive from hip fx. - Monitor -> Resolved by discharge. (7) COPD (chronic obstructive pulmonary disease): Patient is still smoking. Mild end-expiratory wheezing. Chronic hypoxemic respiratory failure with need for O2. VBG shows compensated hypercarbia. - Home maintenance inhalers - DuoNebs PRN - Stable today. No wheezing and no increased work of breathing. (8) Reflux gastritis: - Continue PPI and H2 johann - Maalox PRN (9) Malnutrition: BMI is 14.8. Patient looks cachectic on exam. Possibly due to COPD. Severe protein-calorie malnutrition. Patient reports colonoscopy a few years ago that was normal. Was planned to have one in February, but cancelled due to her poor pulmonary status. CT chest on 03/10 with 1.3 cm irregular opacity in the left upper lobe is indeterminant and likely represents scarring/atelectasis. - Supply Chain Associate consulted for nutrition assessment - Repeat chest CT in 3 months. (10) DVT prophylaxis: Lovenox 30 mg SQ daily Total Time Total Time Spent Total Time Spent (In Minutes): 35 Discharge Plan Discharge Items Patient Disposition: Transfer Inpatient Rehab Fac Reason For Visit: LT HIP FRACTURE Discharge Diagnosis: Left hip fracture Condition on Discharge: Good Activity: Resume your previous activity Non-emergency contact: Primary Care Provider and Surgeon Call non-emergency contact if: your symptoms worsen and your temperature is above 101 Follow-up/Referrals: Virgilio Vazquez M.D. [Physician] - Janey Beck CRNP [Nurse Practitioner] - (Follow up with Dr Reynoso 10-14 days for wound check and staple removal. Follow up with Janey QUIJANO for Osteoporosis visit) PCP,NO [Primary Care Provider] - Diet: Regular Addtl Attending Provider Instructions: Addtl Front Of House Manager Provider Instructions: [facility] DISCHARGE INSTRUCTIONS: HIP FRACTURE SELF CARE INSTRUCTIONS: A. You are to ambulate with a walker or crutches for approximately 6 weeks. B. You are TOE TOUCH WEIGHT BEARING on your operative lower extremity for at least 6 weeks. Nonweightbearing on the left upper extremity. C. Wear low heeled shoes with non-slip soles D. Be sure that your floors are free of things that could trip you throw rugs, electrical cords, and small objects. Avoid wet and waxed floors, especially with crutches/walker/cane. E. Try to walk several times a day with rest periods between. F. You may shower 48 hours after surgery and get the incision area wet, but DO NOT soak or submerge incision area in water. (No baths, swimming pools, hot tubs) G. You may have a large, band-aid like dressing over your incision (Aquacel). This will remain on your incision for 7 days, and then can be removed. You CAN shower with this on. If incision is leaking through the dressing, please call the office . H. Do NOT apply soap or any ointment/lotions directly over incision. I. You may use ice as needed to operative site. SPECIAL CARE INSTRUCTIONS: VERY IMPORTANT TO READ AND REVIEW A. You may be at risk for phlebitis or blood clots. a. Wear surgical stockings (SAURABH hose) for 2 weeks after surgery to improve circulation and reduce swelling. b. Take LOVENOX 30mg Daily for 2-4 weeks or as directed. This is your blood thinner. B. There are a few signs you need to watch for after you are home. Call [facility] at [phone] if you experience any of the following: a. If you have a temperature of 101 degrees or higher. b. Sudden increase in pain in your hip not relieved by rest or pain medication. c. Any fluid or drainage from the incision; redness of the incision. d. Shortness of breath or chest pain. C. Call your physician if: a. Temperature is greater than 101 degrees (F). b. Pain is not relieved by prescribed pain medica tions. c. Increase drainage or redness from incision. d. Unanswered questions or concerns. D. Pain Medication: a. You will be prescribed pain medication upon discharge that should last till your first post-operative appointment. b. If you experience nausea and/or skin rash, discontinue this medication and contact our office for an alternative medication. c. Caution- narcotic pain medication can cause constipation. FOLLOW UP VISIT: Please call [facility] at [phone] to schedule a follow up appointment with Dr. Vazquez in 10-14 days from the date of your surgery date. Pending Studies at Discharge: No Stand-Alone Forms: My [facility] Skilled Items Patient informed of condition?: Yes DNR: No Discharge Level of Care: Acute rehab Communicable Disease: No Discharge Prognosis: Improving Lines: None Urinary Catheter: No Medications and DC Order Prescriptions: New tramadol 50 mg Tablet 50 mg PO Q4H PRNQty: 0 RF: 0 pantoprazole 40 mg Tablet,Delayed Release (Dr/Ec) 40 mg PO HS Qty: 1 RF: 0 Continued atorvastatin 20 mg tablet 20 mg PO PM RF: 0 ipratropium-albuterol 0.5 mg-3 mg(2.5 mg base)/3 mL Solution For Nebulization 3 ml INHALATION Q4H PRN (Reason: SOB) RF: 0 amlodipine 2.5 mg tablet 2.5 mg PO QAM RF: 0 famotidine 20 mg tablet 20 mg PO QAM RF: 0 lorazepam 1 mg tablet 1 mg PO Q8H PRN (Reason: Anxiety) RF: 0 albuterol sulfate [Ventolin HFA] 90 mcg/actuation HFA aerosol inhaler 1 - 2 puff INHALATION Q4H PRN (Reason: SOB/ Wheezing) RF: 0 docusate sodium 100 mg Tablet 100 mg PO BID RF: 0 oxycodone 5 mg tablet 5 mg PO Q8H PRN (Reason: Pain) RF: 0 duloxetine 60 mg capsule,delayed release(DR/EC) 60 mg PO QAM RF: 0 Trelegy Ellipta 100-62.5-25 mcg blister with device 1 inh INHALATION BID RF: 0 Discharge Orders: Discharge Order (Routine); Ordered 03/15/20 Ordered By: Rashad Matthews Admission Data Admit Date/Time: 03/08/20 12:42 Attending Provider: Rashad Matthews Admit Provider: Rashad Matthews Primary Care Provider: PCP,NO Other Providers: [facility] ; Victor Manuel Ruiz [facility] [place] ; Rashad Matthews ; Ryan Carias Coding Level of Care Code D/C Day Management >30 mins Diagnoses Closed intertrochanteric fracture of left hip S72.142A Encounter type: initial encounter Fracture alignment: displaced Closed fracture of left olecranon process S52.022A Encounter type: initial encounter Tachycardia R00.0 Hypertension I10 Fall W19.XXXA Encounter type: initial encounter Leukocytosis D72.829 COPD (chronic obstructive pulmonary disease) J44.9 Reflux gastritis K29.60 Malnutrition E46 DVT prophylaxis Z29.9
== END 2020-03-15 16:06 | DRG 480 ==
LOC: EDSEX → ED 10:05 → 3E 12:42 → SUATTDRO 12:42 → 3E 13:57 → 2W 03-12 16:36

== ENCOUNTER 2020-05-14 12:35 | Observation (INO) ==
[2020-05-14] MEDS ORDERED: methylPREDNISolone 125 MG/2 ML VIAL IV STA (12:53)
[2020-05-14] MEDS ORDERED: ALBUT/IPRATROP 3MG/0.5MG NEB 3 ML VIAL NEB STA (12:54)
[2020-05-14 13:12] LABS: Base Excess VBG 1.5 mEq/L; pH VBG 7.11 (7.36-7.41)
--- NOTE | 2020-05-14 13:15 | Emergency Department Note ---
Impression & Plan Confusion, Respiratory failure ED Provider Note Provider: Rojelio Padilla MD DATE OF SERVICE:05/14/2020 CHIEF COMPLAINT: Confusion, breathing issues HISTORY OF PRESENT ILLNESS: Patient is a 75-year-old female history of COPD on chronic oxygen, hypertension, and recent left hip fracture status post repair as well as left olecranon fracture. She presents via ambulance today from her home due to confusion this morning. Patient upon arrival here is unable to write significant history and is confused with tachypnea and increased work of breathing. EMS reports the patient was confused today and brought here for further care. They gave some Zofran in route for some nausea. Called the pa jamaal's house and discussed with her son who was present and answered the phone. He reports the patient was a bit short of breath yesterday they went and got extra albuterol nebulizers for and then this morning around 830 Occupational Therapy came to see her but could not wake her up. Family is unable to arouse her as well and EMS was called. They state it appears her oxygen was working she is on a baseline of 3 L of oxygen. No other complaints are noted by family via phone. Again the patient is unable to revive significant history here. Son states family would like everything done. Patient did have a hospitalization for some palpitation issues in March at [facility] by his report but he is unable to give significant other details. REVIEW OF SYSTEMS: A total of 10 review of systems was obtained and negative except as stated above in the HPI. PAST MEDICAL HISTORY: As noted above MEDICATIONS: Reviewed medications present with the patient. SOCIAL HISTORY: lives at home with , long-term smoker PHYSICAL EXAM: GENERAL: Response to loud verbal as well as physical stimuli but unable to give a clear history appears confused and with occasional one-word answers of dubious truthfulness. Patient is quite thin and frail in appearance. Head: normocephalic and atraumatic EYES: No injection, discharge or icterus. PERRL NECK: Trachea midline. Supple. ENT: Mucous membranes pink and moist. LUNGS: Airway patent. Increased work of breathing and diffuse wheeziness. HEART: Regular tachycardic rate and rhythm. No chest wall tenderness ABDOMEN: Soft and non-tender, without guarding or rebound. SKIN: Acyanotic, warm, dry, without rashes EXTREMITIES: Without swelling, tenderness or deformity with a well-healed left hip incision; the left upper extremity is maintained in a splint. Good capillary refill and gross sensation appears intact in the left fingers which moved to pain. NEUROLOGICAL: No focal deficits moving all extremities. No slurred speech. No facial droop. No gaze preference/deviation. Patient is somnolent. EK bpm sinus tachycardia without acute PVC. No acute ST segment elevation or depression noted. QTc 451. Some slight baseline artifact noted here. CONTINUOUS CARDIAC MONITORING: was ordered and showed a heart rate of 108 bpm in sinus tachycardia Patient's laboratory studies and imaging reviewed. Differential includes Infection, dehydration, metabolic abnormality, hypo/hyperglycemia, electrolyte disturbance, anemia, hypoxia, cardiac sources, intracerebral event, toxicologic, neurologic, as well as other pathologies. IMPRESSION/MEDICAL DECISION MAKING: Patient minimally responsive here with some increased work of breathing diffuse wheeziness. DuoNeb ordered. Did have some increased respiratory effort and sh ortness of breath last night concern for hypercarbia given her history of COPD. Patient's initial hypoxia improved with some stimulation here well complete EKG and blood work and on 4 L was satting in the high 90s. Patient herself does not provide significant history although no significant traumas noted newly on the patient. Discussed with son who answered patient's home phone number does not report any trauma. No significant focality to exam and I doubt acute CVA. CT the head however was completed exclude acute intracranial etiology such as possible intracranial bleed such as subdural or IPH. X-ray of the elbow appears to show stability but limited exam. Chest x-ray appears clear. Blood work shows mild leukocytosis of 14 with stable mild anemia. Acidosis with hypercarbia of 7.11 and 109 is noted likely explaining her diminished mental status. Again patient has been placed on BiPAP. Lactate not elevated. Urine is questionable for possible infection with nitrate from a cath sample. With this and leukocytosis will cover broadly with ceftriaxone at this point. Patient received Solu-Medrol to treat reactive airway component. Troponin is undetectable and TSH within normal limits. I doubt this is cardiac related. No evidence of acute hepatitis or pancreatitis based on laboratory studies. Renal function appears stable. CT the head per radiology report without acute intracranial bleed or acute abnormality. Updated the patient's son via phone. Patient put on BiPAP to assist with reduction of the CO2 and requires admission. Hospitalist team contacted. DIAGNOSIS: Acute on chronic hypercarbic and hypoxic respiratory failure, acute UTI, confusion DISPOSITION: Hospitalist will evaluate, son updated via phone Critical Care I have personally spent 33 minutes of critical care time in the direct management of this patient. This includes bedside care, interpretation of diagnostic studies, and testing, discussion with consultants, patient, and family members, and other required patient management activities. These 33 minutes is in excess of all separately billable procedures. Past Med/Surg History Medical History Closed fracture of left olecranon process Closed intertrochanteric fracture of left hip COPD (chronic obstructive pulmonary disease) Hypertension Reflux gastritis Smoker Family History Other Family history non-contributory Social History Smoking Status: Current every day smoker Cigarettes Per Day: 7; Second Hand Exposure: Yes; Do You Dip or Chew Tobacco: No; Tobacco Cessation Education Requested by Patient: Yes Hx Alcohol Use: No Hx Substance Use: No Preferred Language: Danish Communication Ability: Effective Director Of Guidance In Public [employer] Required: No Beliefs That Will Affect Care: None marital status: Current Living Situation: Family Other Information That Helps Us Care for You: Yes Feels Safe at Home: Yes Safety Concerns: Feels Safe At This Time Assistive Devices: BiPap Allergies Allergies Allergy/AdvReac Type Severity Reaction Status Date / Time No Known Allergies Allergy Verified 05/14/20 15:01 Home Meds Home Medications Medication Instructions Recorded Confirmed Trelegy Ellipta 1 inh INHALATION BID 03/08/20 05/14/20 albuterol sulfate [Ventolin HFA] 1 - 2 puff INHALATION Q4H PRN 03/08/20 05/14/20 amlodipine 5 mg PO QAM 03/08/20 05/14/20 atorvastatin 20 mg PO PM 03/08/20 05/14/20 docusate sodium 100 mg PO BID 03/08/20 05/14/20 duloxetine 60 mg PO QAM 03/08/20 05/14/20 famotidine 20 mg PO BID 03/08/20 05/14/20 ipratropium-albuterol 3 ml INHALATION Q4H PRN 03/08/20 05/14/20 lorazepam 1 mg PO Q8H PRN 03/08/20 05/14/20 oxycodone 5 mg PO Q8H PRN 03/08/20 05/14/20 cholecalciferol (vitamin D3) 125 mcg PO DAILY 05/14/20 05/14/20 enoxaparin 0.3 mg SUBCUT DAILY 05/14/20 05/14/20 fluticasone propionate 2 spray INTRANASAL DAILY PRN 05/14/20 05/14/20 ipratropium-albuterol [Combivent 1 puff INHALATION DIRECTED 05/14/20 05/14/20 Respimat] tamsulosin [Flomax] 0.4 mg PO HS 05/14/20 05/14/20 Results & Data (ED) Vital Signs Vital Signs - 24 hr 05/14/20 12:41 05/14/20 12:45 05/14/20 12:50 Temperature 35.2 C L Temperature Source Rectal Pulse Rate 114 H 116 H Pulse Rate [Apical] Pulse Rate from SpO2 Sensor 115 H Respiratory Rate 24 22 Respiratory Effort / Characteristics Respiratory Depth Respiratory Pattern Blood Pressure 134/94 134/94 Blood Pressure Mean 107 107 Pulse Oximetry 97 98 98 Oxygen Delivery Method Nasal Cannula Nasal Cannula Oxygen Flow Rate 4 4 Fraction of Inspired Oxygen Sepsis Recent Fever Within 48 Hours No Sepsis New/Unexplained Change in Mental Status Yes Sepsis Action Taken by Nursing Physician Notified 05/14/20 13:00 05/14/20 13:21 05/14/20 13:22 Temperature Temperature Source Pulse Rate 114 H 114 H Pulse Rate [Apical] 119 H Pulse Rate from SpO2 Sensor 114 H Respiratory Rate 13 12 Respiratory Effort / Characteristics Spontaneous Labored Respiratory Depth Deep Respiratory Pattern Agonal Blood Pressure Blood Pressure Mean Pulse Oximetry 97 98 97 Oxygen Delivery Method Nasal Cannula Oxygen Flow Rate 4 4 Fraction of Inspired Oxygen 30 Sepsis Recent Fever Within 48 Hours Sepsis New/Unexplained Change in Mental Status Sepsis Action Taken by Nursing 05/14/20 13:30 05/14/20 13:49 05/14/20 13:50 Temperature Temperature Source Pulse Rate 112 H 112 H 111 H Pulse Rate [Apical] Pulse Rate from SpO2 Sensor 115 H 111 H 111 H Respiratory Rate 22 12 22 Respiratory Effort / Characteristics Respiratory Depth Respiratory Pattern Blood Pressure Blood Pressure Mean Pulse Oximetry 95 99 99 Oxygen Delivery Method Oxygen Flow Rate Fraction of Inspired Oxygen Sepsis Recent Fever Within 48 Hours Sepsis New/Unexplained Change in Mental Status Sepsis Action Taken by Nursing 05/14/20 13:51 05/14/20 14:00 05/14/20 14:01 Temperature Temperature Source Pulse Rate 111 H 113 H 112 H Pulse Rate [Apical] Pulse Rate from SpO2 Sensor 110 H 113 H 113 H Respiratory Rate 20 14 14 Respiratory Effort / Characteristics Respiratory Depth Respiratory Pattern Blood Pressure 148/72 H 134/86 Blood Pressure Mean 97 102 Pulse Oximetry 97 89 L 89 L Oxygen Delivery Method Oxygen Flow Rate Fraction of Inspired Oxygen Sepsis Recent Fever Within 48 Hours Sepsis New/Unexplained Change in Mental Status Sepsis Action Taken by Nursing 05/14/20 14:10 05/14/20 14:15 05/14/20 14:20 Temperature Temperature Source Pulse Rate 113 H 112 H 108 H Pulse Rate [Apical] 112 H Pulse Rate from SpO2 Sensor 113 H 114 H Respiratory Rate 13 16 13 Respiratory Effort / Characteristics Spontaneous Labored Respiratory Depth Deep Respiratory Pattern Agonal Blood Pressure Blood Pressure Mean Pulse Oximetry 91 95 100 Oxygen Delivery Method BiPAP Oxygen Flow Rate Fraction of Inspired Oxygen 30 Sepsis Recent Fever Within 48 Hours Sepsis New/Unexplained Change in Mental Status Sepsis Action Taken by Nursing 05/14/20 14:30 05/14/20 14:31 05/14/20 14:40 Temperature Temperature Source Pulse Rate 112 H 109 H 113 H Pulse Rate [Apical] Pulse Rate from SpO2 Sensor 111 H 115 H 112 H Respiratory Rate 18 22 17 Respiratory Effort / Characteristics Respiratory Depth Respiratory Pattern Blood Pressure 140/75 Blood Pressure Mean 96 Pulse Oximetry 100 100 100 Oxygen Delivery Method Oxygen Flow Rate Fraction of Inspired Oxygen Sepsis Recent Fever Within 48 Hours Sepsis New/Unexplained Change in Mental Status Sepsis Action Taken by Nursing 05/14/20 15:00 05/14/20 15:30 05/14/20 16:00 Temperature Temperature Source Pulse Rate 114 H 104 H 102 H Pulse Rate [Apical] Pulse Rate from SpO2 Sensor 108 H 104 H 105 H Respiratory Rate 17 15 17 Respiratory Effort / Characteristics Respiratory Depth Respiratory Pattern Blood Pressure 136/79 134/74 130/72 Blood Pressure Mean 98 94 91 Pulse Oximetry 100 100 100 Oxygen Delivery Method BiPAP BiPAP Oxygen Flow Rate Fraction of Inspired Oxygen Sepsis Recent Fever Within 48 Hours Sepsis New/Unexplained Change in Mental Status Sepsis Action Taken by Nursing 05/14/20 16:10 Temperature Temperature Source Pulse Rate 102 H Pulse Rate [Apical] Pulse Rate from SpO2 Sensor Respiratory Rate 18 Respiratory Effort / Characteristics Non-Labored Spontaneous Respiratory Depth Normal Respiratory Pattern Regular Blood Pressure Blood Pressure Mean Pulse Oximetry Oxygen Delivery Method Oxygen Flow Rate Fraction of Inspired Oxygen 30 Sepsis Recent Fever Within 48 Hours Sepsis New/Unexplained Change in Mental Status Sepsis Action Taken by Nursing Laboratory Data Result diagrams: 05/14/20 12:57 05/14/20 12:57 Lab Results 05/14/20 05/14/20 05/14/20 Range/Units 12:57 12:57 12:57 WBC 14.67 H (4.8-10.8) K/uL RBC 4.00 L (4.2-5.4) M/uL Hgb 11.8 L (12.0-16.0) g/dL Hct 37.2 (37-47) % MCV 93.0 (80-100) fL MCH 29.5 (25-34) pg MCHC 31.7 L (32-36) g/dL RDW Std Deviation 50.2 H (36.4-46.3) fL RDW Coeff of Zhao 14.8 H (11.5-14.5) % Plt Count 250 (130-400) K/uL MPV 10.1 (7.4-10.4) fL Immature Gran % (Auto) 0.5 % Neut % (Auto) 81.6 % Lymph % (Auto) 10.5 % [place] % (Auto) 7.0 % Eos % (Auto) 0.3 % Baso % (Auto) 0.1 % Neut # (Auto) 11.97 H (1.4-6.5) K/uL Lymph # (Auto) 1.54 (1.2-3.4) K/uL [place] # (Auto) 1.03 H (0.11-0.59) K/uL Eos # (Auto) 0.04 (0-0.5) K/uL Baso # (Auto) 0.02 (0-0.2) K/uL Immature Gran # (Auto) 0.07 H (0.00-0.02) K/uL ABG pH (7.35-7.45) ABG pCO2 (35-46) mmHg ABG pO2 (80-95) mmHg ABG HCO3 (19-24) mmol/L ABG O2 Saturation (90-95) % ABG Base Excess (-9-1.8) mEq/L Erik Test (Pos) VBG pH 7.11 L (7.36-7.41) VBG pCO2 109 H (38-50) mmHg VBG pO2 57 mmHg VBG HCO3 34 mmol/L VBG O2 Saturation 85.0 % VBG Base Excess 1.5 mEq/L Barometric Pressure 736.0 mm/Hg Oxygen Given Sodium 141 (136-145) mmol/L Potassium 5.0 (3.5-5.1) mmol/L Chloride 109 H (98-107) mmol/L Carbon Dioxide 34 H (21-32) mmol/L Anion Gap -2.0 L (3-11) BUN 11 (7-18) mg/dl Creatinine 0.46 L (0.6-1.2) mg/dl Est Cr Clr Drug Dosing Not Reportable Est GFR ( Amer) 113.6 Est GFR (Non-Af Amer) 98.0 BUN/Creatinine Ratio 23.7 H (10-20) Glucose 117 H (70-99) mg/dl Lactate (0.4-2.0) mmol/L Calcium 8.4 L (8.5-10.1) mg/dl Total Bilirubin 0.3 (0.2-1) mg/dl AST 30 (15-37) U/L ALT 42 (12-78) U/L Alkaline Phosphatase 132 H (45-117) U/L Troponin I < 0.015 (0-0.045) ng/ml Total Protein 7.2 (6.4-8.2) gm/dl Albumin 3.4 (3.4-5.0) gm/dl Globulin 3.8 (2.5-4.0) gm/dl Albumin/Globulin Ratio 0.9 (0.9-2) Lipase 252 (73-393) U/L TSH 0.515 (0.300-4.500) uIu/ml Urine Color Urine Appearance (Clear) Urine pH (4.5-7.5) Ur Specific [place] (1.000-1.030) Urine Protein (Negative) Urine Glucose (UA) (Negative) Urine Ketones (Negative) Urine Blood (Negative) Urine Nitrite (Negative) Urine Bilirubin (Negative) Urine Urobilinogen (Negative) Ur Leukocyte Esterase (Negative) Urine WBC (Auto) (0-5) /hpf Urine RBC (Auto) (0-4) /hpf U Hyaline Cast (Auto) (0-5) /lpf U Epithel Cells (Auto) (0-5) /lpf Urine Bacteria (Auto) (Negative) Urine Yeast COVID-19 Eval Order SARS-CoV-2 (PCR) (Negative) Influenza Type A (PCR) (Neg) Influenza Type B (PCR) (Neg) RSV (RT-PCR) (Neg) 05/14/20 05/14/20 05/14/20 Range/Units 13:05 13:06 14:00 WBC (4.8-10.8) K/uL RBC (4.2-5.4) M/uL Hgb (12.0-16.0) g/dL Hct (37-47) % MCV (80-100) fL MCH (25-34) pg MCHC (32-36) g/dL RDW Std Deviation (36.4-46.3) fL RDW Coeff of Zhao (11.5-14.5) % Plt Count (130-400) K/uL MPV (7.4-10.4) fL Immature Gran % (Auto) % Neut % (Auto) % Lymph % (Auto) % [place] % (Auto) % Eos % (Auto) % Baso % (Auto) % Neut # (Auto) (1.4-6.5) K/uL Lymph # (Auto) (1.2-3.4) K/uL [place] # (Auto) (0.11-0.59) K/uL Eos # (Auto) (0-0.5) K/uL Baso # (Auto) (0-0.2) K/uL Immature Gran # (Auto) (0.00-0.02) K/uL ABG pH (7.35-7.45) ABG pCO2 (35-46) mmHg ABG pO2 (80-95) mmHg ABG HCO3 (19-24) mmol/L ABG O2 Saturation (90-95) % ABG Base Excess (-9-1.8) mEq/L Erik Test (Pos) VBG pH (7.36-7.41) VBG pCO2 (38-50) mmHg VBG pO2 mmHg VBG HCO3 mmol/L VBG O2 Saturation % VBG Base Excess mEq/L Barometric Pressure mm/Hg Oxygen Given Sodium (136-145) mmol/L Potassium (3.5-5.1) mmol/L Chloride (98-107) mmol/L Carbon Dioxide (21-32) mmol/L Anion Gap (3-11) BUN (7-18) mg/dl Creatinine (0.6-1.2) mg/dl Est Cr Clr Drug Dosing Est GFR ( Amer) Est GFR (Non-Af Amer) BUN/Creatinine Ratio (10-20) Glucose (70-99) mg/dl Lactate 0.9 (0.4-2.0) mmol/L Calcium (8.5-10.1) mg/dl Total Bilirubin (0.2-1) mg/dl AST (15-37) U/L ALT (12-78) U/L Alkaline Phosphatase (45-117) U/L Troponin I (0-0.045) ng/ml Total Protein (6.4-8.2) gm/dl Albumin (3.4-5.0) gm/dl Globulin (2.5-4.0) gm/dl Albumin/Globulin Ratio (0.9-2) Lipase (73-393) U/L TSH (0.300-4.500) uIu/ml Urine Color Yellow Urine Appearance Clear (Clear) Urine pH 5.0 (4.5-7.5) Ur Specific [place] 1.018 (1.000-1.030) Urine Protein Negative (Negative) Urine Glucose (UA) Negative (Negative) Urine Ketones Negative (Negative) Urine Blood Negative (Negative) Urine Nitrite Positive A (Negative) Urine Bilirubin Negative (Negative) Urine Urobilinogen Negative (Negative) Ur Leukocyte Esterase Trace H (Negative) Urine WBC (Auto) 5-10 H (0-5) /hpf Urine RBC (Auto) 0-4 (0-4) /hpf U Hyaline Cast (Auto) 1-5 (0-5) /lpf U Epithel Cells (Auto) 20-30 H (0-5) /lpf Urine Bacteria (Auto) Negative (Negative) Urine Yeast Not Reportable COVID-19 Eval Order CovFluRsv at [facility] SARS-CoV-2 (PCR) (Negative) Influenza Type A (PCR) (Neg) Influenza Type B (PCR) (Neg) RSV (RT-PCR) (Neg) 05/14/20 05/14/20 Range/Units 14:00 15:30 WBC (4.8-10.8) K/uL RBC (4.2-5.4) M/uL Hgb (12.0-16.0) g/dL Hct (37-47) % MCV (80-100) fL MCH (25-34) pg MCHC (32-36) g/dL RDW Std Deviation (36.4-46.3) fL RDW Coeff of Zhao (11.5-14.5) % Plt Count (130-400) K/uL MPV (7.4-10.4) fL Immature Gran % (Auto) % Neut % (Auto) % Lymph % (Auto) % [place] % (Auto) % Eos % (Auto) % Baso % (Auto) % Neut # (Auto) (1.4-6.5) K/uL Lymph # (Auto) (1.2-3.4) K/uL [place] # (Auto) (0.11-0.59) K/uL Eos # (Auto) (0-0.5) K/uL Baso # (Auto) (0-0.2) K/uL Immature Gran # (Auto) (0.00-0.02) K/uL ABG pH 7.30 L (7.35-7.45) ABG pCO2 64 H (35-46) mmHg ABG pO2 132 H (80-95) mmHg ABG HCO3 31 H (19-24) mmol/L ABG O2 Saturation 98.0 H (90-95) % ABG Base Excess 2.8 H (-9-1.8) mEq/L Erik Test POS (Pos) VBG pH (7.36-7.41) VBG pCO2 (38-50) mmHg VBG pO2 mmHg VBG HCO3 mmol/L VBG O2 Saturation % VBG Base Excess mEq/L Barometric Pressure 736.5 mm/Hg Oxygen Given 30% FiO2 Sodium (136-145) mmol/L Potassium (3.5-5.1) mmol/L Chloride (98-107) mmol/L Carbon Dioxide (21-32) mmol/L Anion Gap (3-11) BUN (7-18) mg/dl Creatinine (0.6-1.2) mg/dl Est Cr Clr Drug Dosing Est GFR ( Amer) Est GFR (Non-Af Amer) BUN/Creatinine Ratio (10-20) Glucose (70-99) mg/dl Lactate (0.4-2.0) mmol/L Calcium (8.5-10.1) mg/dl Total Bilirubin (0.2-1) mg/dl AST (15-37) U/L ALT (12-78) U/L Alkaline Phosphatase (45-117) U/L Troponin I (0-0.045) ng/ml Total Protein (6.4-8.2) gm/dl Albumin (3.4-5.0) gm/dl Globulin (2.5-4.0) gm/dl Albumin/Globulin Ratio (0.9-2) Lipase (73-393) U/L TSH (0.300-4.500) uIu/ml Urine Color Urine Appearance (Clear) Urine pH (4.5-7.5) Ur Specific [place] (1.000-1.030) Urine Protein (Negative) Urine Glucose (UA) (Negative) Urine Ketones (Negative) Urine Blood (Negative) Urine Nitrite (Negative) Urine Bilirubin (Negative) Urine Urobilinogen (Negative) Ur Leukocyte Esterase (Negative) Urine WBC (Auto) (0-5) /hpf Urine RBC (Auto) (0-4) /hpf U Hyaline Cast (Auto) (0-5) /lpf U Epithel Cells (Auto) (0-5) /lpf Urine Bacteria (Auto) (Negative) Urine Yeast COVID-19 Eval Order SARS-CoV-2 (PCR) NEGATIVE (Negative) Influenza Type A (PCR) Negative (Neg) Influenza Type B (PCR) Negative (Neg) RSV (RT-PCR) Negative (Neg) Administered Medications Albuterol (Albuterol Hfa 8 Gm Inhaler) 2 puffs INH Q6R [facility] Stop: 06/13/20 18:59 Last Admin: 05/14/20 19:04 Dose: 2 puffs Documented by: [id number] Discontinued Medications Albuterol (Albut/Ipratrop 3mg/0.5mg Neb 3 Ml Vial) 3 ml NEB NOW STA Stop: 05/14/20 12:55 Last Admin: 05/14/20 13:22 Dose: 3 ml Documented by: [id number] Albuterol (Albut/Ipratrop 3mg/0.5mg Neb 3 Ml Vial) 12 ml NEB ONE ONE Stop: 05/14/20 13:45 Last Admin: 05/14/20 14:15 Dose: 12 ml Documented by: [id number] Azithromycin (Azithromycin 250 Mg Tab) 500 mg PO NOW ONE Stop: 05/14/20 15:46 Last Admin: 05/14/20 18:17 Dose: 500 mg Documented by: [id number] Ceftriaxone Sodium (Rocephin) 1,000 mg in 50 mls @ 100 mls/hr IV NOW STA Stop: 05/14/20 14:12 Last Infusion: 05/14/20 15:01 Dose: 0 mls/hr Documented by: [id number] Admin: 05/14/20 14:22 Dose: 100 mls/hr Documented by: [id number] Methylprednisolone (Methylprednisolone 125 Mg/2 Ml Vial) 60 mg IV NOW STA Stop: 05/14/20 12:54 Last Admin: 05/14/20 14:22 Dose: 60 mg Documented by: [id number] Discharge Plan Visit Data Chief Complaint: Confusion ED Provider: Rojelio Padilla Discharge Problem: Confusion, Respiratory failure Patient Disposition: Admitted As Inpatient Discharge Instructions Interventions: ED Discharge Assessment Last Done: 05/14/20 18:02 Discharge Problem: Respiratory failure Qualifiers: Chronicity: acute on chronic Respiratory failure complication: hypoxia and hypercapnia Qualified Code(s): J96.21 - Acute and chronic respiratory failure with hypoxia
[2020-05-14 13:19] LABS: Basophils # (auto) 0.02 K/uL (0-0.2); Basophils % (auto) 0.1 %; Eosinophils # (auto) 0.04 K/uL (0-0.5); Eosinophils % (auto) 0.3 %; Hematocrit (blood only) 37.2 % (37-47); Hemoglobin 11.8 g/dL (12.0-16.0); Immature Granulocytes # (auto) 0.07 K/uL (0.00-0.02); Immature Granulocytes % (auto) 0.5 %; Lymphocytes # (auto) 1.54 K/uL (1.2-3.4); Lymphocytes % (auto) 10.5 %; Mean Corpuscular Hemoglobin 29.5 pg (25-34); Mean Corpuscular Hgb Conc 31.7 g/dL (32-36); Mean Platelet Volume 10.1 fL (7.4-10.4); Monocytes # (auto) 1.03 K/uL (0.11-0.59); Neutrophils # (auto) 11.97 K/uL (1.4-6.5); Neutrophils % (auto) 81.6 %; Platelet Count 250 K/uL (130-400); RDW Coefficient of Variation 14.8 % (11.5-14.5); RDW Standard Deviation 50.2 fL (36.4-46.3); White Blood Count 14.67 K/uL (4.8-10.8)
[2020-05-14 13:35] LABS: Appearance Urine Clear (Clear); Bacteria Urine Automated Negative (Negative); Bilirubin Urine Negative (Negative); Blood Urine Negative (Negative); Color Urine Yellow; Epithelial Cell Urine Auto 20-30 /lpf (0-5); Glucose Urine UA Negative (Negative); Ketones Urine Negative (Negative); Leukocyte Esterase Urine Trace (Negative); Nitrite Urine Positive (Negative); Protein Urine Negative (Negative); RBC Urine Automated 0-4 /hpf (0-4); Specific Gravity Urine 1.018 (1.000-1.030); Urobilinogen Urine Negative (Negative)
[2020-05-14 13:43] LABS: Alanine Aminotransferase 42 U/L (12-78); Albumin Level 3.4 gm/dl (3.4-5.0); Aspartate Aminotransferase 30 U/L (15-37); BUN Creatinine Ratio 23.7 (10-20); Blood Urea Nitrogen 11 mg/dl (7-18); Calcium 8.4 mg/dl (8.5-10.1); Carbon Dioxide 34 mmol/L (21-32); Chloride 109 mmol/L (98-107); Est GFR (African American) 113.6; Glucose 117 mg/dl (70-99); Lipase 252 U/L (73-393); Sodium 141 mmol/L (136-145)
[2020-05-14] MEDS ORDERED: cefTRIAXone SODIUM 1,000 MG/50 ML BAG IV STA (13:43)
[2020-05-14] MEDS ORDERED: ALBUT/IPRATROP 3MG/0.5MG NEB 3 ML VIAL NEB ONE (13:44)
[2020-05-14 13:54] LABS: Albumin Globulin Ratio 0.9 (0.9-2); Alkaline Phosphatase 132 U/L (45-117); Bilirubin,Total 0.3 mg/dl (0.2-1); Globulin 3.8 gm/dl (2.5-4.0); Thyroid Stimulating Hormone 0.515 uIu/ml (0.300-4.500); Total Protein 7.2 gm/dl (6.4-8.2); Troponin I < 0.015 ng/ml (0-0.045)
--- NOTE | 2020-05-14 13:56 | CT Scan Report ---
CT SCAN OF THE BRAIN WITHOUT IV CONTRAST CLINICAL HISTORY: Change in mental status. COMPARISON STUDY: CT of the brain dated 03/08/2020. TECHNIQUE: Unenhanced axial CT scan of the brain is performed from the vertex to the skull base. A do se lowering technique was utilized adhering to the principles of ALARA. The patient was scanned 3 jose a es due to motion artifact. CT DOSE: 1441.90 mGycm FINDINGS: Brain parenchyma: There are age-related involutional changes noting mild to moderate subcortical and periventricular microangiopathic change. There is no hemorrhage, mass effect, or evidence of acute t erritorial ischemia by CT criteria. Berry-white matter differentiation is preserved. No extra-axial fl uid collection is seen. Ventricles, sulci, cisterns: Prominent secondary to involutional change. Intracranial vasculature: There is atherosclerotic calcification of the cavernous carotid and vertebr al arteries. Calvarium: Unremarkable. Sinuses and mastoids: The visualized paranasal sinuses are clear. The mastoid air cells are well pneu matized. Orbits: The bony orbits are grossly intact. There are bilateral ocular lens implants. IMPRESSION: There is no hemorrhage, mass effect, or evidence of acute territorial ischemia by CT tanvir sinha. ACT 112: Negative or not required by law. Electronically signed by: Alexsander Mueller M.D. 05/14/2020 1:55 PM
--- NOTE | 2020-05-14 14:42 | XRay Report ---
XR chest 1V portable HISTORY: weakness COMPARISON: Chest 03/06/2020. FINDINGS: No pneumothorax. No pleural effusions. The lungs are hyperexpanded with apical predominant emphysematous changes. Prior cholecystectomy. The heart is normal in size. Mild diffuse interstitial thickening which is likely chronic. Cervical spinal fusion hardware is noted. No new focal lung conso lidations to suggest pneumonia. No evidence for pulmonary edema. IMPRESSION: 1. No new focal lung consolidations to suggest pneumonia. 2. Mild diffuse interstitial thickening which is likely chronic. 3. Emphysema. ACT 112: Negative or not required by law. Electronically signed by: Jorge Caba M.D. 05/14/2020 2:41 PM
--- NOTE | 2020-05-14 14:50 | XRay Report ---
XR elbow LT 2V CLINICAL HISTORY: previous fracture COMPARISON: Left elbow radiographs and CT of the left elbow March 08, 2020. FINDINGS: This exam is compromised given difficulty positioning. Old healed distal left humeral frac ture is noted. The olecranon fracture shown on prior CT is not visualized on this exam due to techniq ue. No definite acute fracture is noted. Soft tissue swelling has resolved. There is overlying cast. IMPRESSION: 1. Technically difficult exam, as described above. 2. Healed distal left humeral fracture. Left olecranon fracture on prior CT not visualized on this ex am due to technique. 3. Interval resolution of soft tissue swelling. 4. No acute fracture on single projection. ACT 112: Negative or not required by law. Electronically signed by: Franky Escamilla M.D. 05/14/2020 2:49 PM
[2020-05-14 15:05] LABS: Influenza A virus by PCR Negative (Neg); Influenza B virus by PCR Negative (Neg); RSV by PCR Negative (Neg); SARS CoV2 RNA(COVID-19) InHosp NEGATIVE (Negative)
[2020-05-14] MEDS ORDERED: AZITHROMYCIN 250 MG TAB PO ONE ×2 (15:45→18:11)
[2020-05-14 15:50] LABS: Allen Test POS (Pos); Base Excess ABG 2.8 mEq/L (-9-1.8); HCO3 ABG 31 mmol/L (19-24); PCO2 ABG 64 mmHg (35-46); PO2 ABG 132 mmHg (80-95)
--- NOTE | 2020-05-14 16:18 | History & Physical Report ---
Date of Service May 14, 2020 Assessment & Plan (1) Respiratory failure: Acute hypercarbic/hypoxic respiratory failure - ? cause- Central respiratory depression vs. COPD exacerbation - will treat for COPD exacerbation in setting of cough associated with patient report of increased sputum and increase cough with SOB - PETE scheduled q6 hours, transition back to PRN after 24 hours if able - Continue nebs PRN in between - Hold flonase. (2) Overdose: PDMP reivewed, patient with prescriptions filled for Ativan 1mg (15 tabs) and Oxycodone 5 mg (24 tabs) on . These scripts were filled as well on 06May2020, 30Apr2020. Week supply issued every week since March. - Ativan pill bottle in room with 9 pills used in ~ 30 hours - Oxycodone bottle not in room Will monitor patient with AWSS if Score >9 or RAAS >-2, notify provider airport operations manager and may initiate treatment doses as needed. Clonidine patch if patient needs for opiod withdrawl ETCO2 monitoring as above while off BIPAP. (3) COPD (chronic obstructive pulmonary disease): As above, smoking cessation education - exacerbation ? VS central narcosis from sedative medications above - PO Prednisone at 20 mg PO BID, increase dose if needed - Azithromycin (4) Smoker: as above (5) Malnutrition: Nutrition consult, as most laboratory markers are poor indicators. - consider thiamine and MVI - chronically underweight (6) Anxiety: ? Components, continue - continue duloxetine - may need assistance weaning down custodial benzo use (7) Leukocytosis: Chronically elevated back into February. - Do not feel this is related to infection at this time, urine is Leuk positive, with WBC 5-10 no bacteria. - Contaminant likely, will recheck - blood cultures pending, urine repeat pending - no fevers - one dose of ceftriaxone in the ER. - azithromycin as above for COPD exacerbation. (8) Chronic pain: ? chronic use of opiods- May 2018 - Patient has decompression and spinal fusions as part of her history of chronic back pain. - Request records if able for review (9) DVT prophylaxis: lovenox 30mg daily History of Present Illness Primary Care Provider: Kenzie Bermudez MD 75 YOF with significant history of COPD, current smoker, frequent falls, and ? malnutrition as patient is underweight. Patient's most recent fall was in FEB 2020 and resulted in acute displaced intertrochanteric left hip fracture required nailing, She also has an acute minimally displaced olecranon fracture in her left elbow. Patient recovered and went to [facility] for rehab. The patient was most recently at [facility] where she was treated for anxiety and palpitations and discharged on Ativan 1mg and Oxycodone 5 mg (filled on 12May2020), she was found to be unarousable at home by her son, EMS was called and the patient was brought to the emergency room. In the ED the patient was found to be hypercarbic with PaCo2 109, acidotic at 7.11 and PaO2 at 57. She was placed on BIPAP 18/8 with 30% FIO2. Upon my evaluation the patient had been on these settings for ~45 min and was arousable, spo2 was 100%, RR 20, VT 900- 1030. Repeat ABG was performed----> PaCO2 66, PH 7.37, PaO2 132. Patient will be admitted to PCU, continue to wean down BIPAP, EtCO2 monitoring while not on BiPAP, hold sedating agents, ? COPD exacerbation, monitor for withdrawls. Allergies Allergy/AdvReac Type Severity Reaction Status Date / Time No Known Allergies Allergy Verified 05/14/20 15:01 Home Medications Medication Instructions Recorded Confirmed Type Jose Ellipta 1 inh INHALATION BID 03/08/20 05/14/20 History albuterol sulfate [Ventolin HFA] 1 - 2 puff INHALATION Q4H PRN 03/08/20 05/14/20 History amlodipine 5 mg PO QAM 03/08/20 05/14/20 History atorvastatin 20 mg PO PM 03/08/20 05/14/20 History docusate sodium 100 mg PO BID 03/08/20 05/14/20 History duloxetine 60 mg PO QAM 03/08/20 05/14/20 History famotidine 20 mg PO BID 03/08/20 05/14/20 History ipratropium-albuterol 3 ml INHALATION Q4H PRN 03/08/20 05/14/20 History lorazepam 1 mg PO Q8H PRN 03/08/20 05/14/20 History oxycodone 5 mg PO Q8H PRN 03/08/20 05/14/20 History cholecalciferol (vitamin D3) 125 mcg PO DAILY 05/14/20 05/14/20 History enoxaparin 0.3 mg SUBCUT DAILY 05/14/20 05/14/20 History fluticasone propionate 2 spray INTRANASAL DAILY PRN 05/14/20 05/14/20 History ipratropium-albuterol [Combivent 1 puff INHALATION DIRECTED 05/14/20 05/14/20 History Respimat] tamsulosin [Flomax] 0.4 mg PO HS 05/14/20 05/14/20 History Past Med/Surg History Medical History Chronic respiratory failure with hypoxia 3 L NC O2 continuously Closed fracture of left hip requiring operative repair Closed fracture of left olecranon process Closed intertrochanteric fracture of left hip COPD (chronic obstructive pulmonary disease) Hypertension Reflux gastritis Smoker Family History Other Family history non-contributory Social History Smoking Status: Current every day smoker Cigarettes Per Day: 7; Second Hand Exposure: Yes; Do You Dip or Chew Tobacco: No; Tobacco Cessation Education Requested by Patient: Yes Hx Alcohol Use: No Hx Substance Use: No Preferred Language: Indonesian Communication Ability: Effective Maintenance Supervisor Required: No Beliefs That Will Affect Care: None marital status: Current Living Situation: Family Other Information That Helps Us Care for You: Yes Feels Safe at Home: Yes Safety Concerns: Feels Safe At This Time Assistive Devices: BiPap Review of Systems Review of Systems: REVIEW OF SYSTEMS: Constitutional: No fever, sweats or chills Eyes: No diplopia, no worsening or blurred vision ENT: normal hearing, no trouble swallowing Respiratory: (+) cough, sputum, dyspnea Cardiovascular: (+) palpitations No chest pain, tightness or palpitations Abdomen: No pain, nausea, vomiting, diarrhea or constipation Musculoskeletal: (+) joint pain hip, knee, left shoulder, NO calf pain, swelling Neurologic: (+) balance problems, walks with walker. No weakness, numbness/tin gling, Psychiatric: (+) anxiety per report Skin: No rash or itch Physical Exam Physical Exam: PHYSICAL EXAM: General: awakes with verbal stimuli, lethargy rapidly imrpoving Head: Normocephalic, atraumatic ENT: PERRL, EOMI, mouth and pharynx not observed with BiPAP mask on. Neuro: AAO x 3, speech clear and appropriate, strength intact bilaterally 5/5, sensation intact and equal all extremities, no pronator drift Chest: equal rise and fall of the chest, no accessory muscle use, poor air movement throughout. scattered rhonchi, (+) cough Cardiac: Regular rate and rhythm, telelmetry reviewed, skin warm dry, cap refill <3 seconds, peripheral pusles +2 no JVD, no murmur, no edema GI: NABS x 4 quadrants, soft, nontender to palpation, no rebound, guarding or tenderness : Narayan to gravity voiding, no pain, UA reviewed, suspect contamination Extremities: Normal inspection, no peripheral edema or erythema, calfs nontender to palpation, underweight, splint to left arm. Psych: Deferred for now while acute need of ventilation and oxygenation. Skin: no rash or erythema Results & Data Results & Data ([facility]) Vital Signs (Past 12 Hours) Vital Signs Temp Pulse Pulse Resp BP Pulse Ox 05/14/20 16:00 102 H 17 130/72 100 05/14/20 15:30 104 H 15 134/74 100 05/14/20 15:00 114 H 17 136/79 100 05/14/20 14:40 113 H 17 100 05/14/20 14:31 109 H 22 100 05/14/20 14:30 112 H 18 140/75 100 05/14/20 14:20 108 H 13 100 05/14/20 14:15 112 H 112 H 16 95 05/14/20 14:10 113 H 13 91 05/14/20 14:01 112 H 14 89 L 05/14/20 14:00 113 H 14 134/86 89 L 05/14/20 13:51 111 H 20 148/72 H 97 05/14/20 13:50 111 H 22 99 05/14/20 13:49 112 H 12 99 05/14/20 13:30 112 H 22 95 05/14/20 13:22 114 H 119 H 12 97 05/14/20 13:21 114 H 13 98 05/14/20 13:00 97 05/14/20 12:50 98 05/14/20 12:45 35.2 C L 116 H 22 134/94 98 05/14/20 12:41 114 H 24 134/94 97 Laboratory Results Abnormal lab results 05/14/20 05/14/20 05/14/20 Range/Units 12:57 12:57 12:57 WBC 14.67 H (4.8-10.8) K/uL RBC 4.00 L (4.2-5.4) M/uL Hgb 11.8 L (12.0-16.0) g/dL MCHC 31.7 L (32-36) g/dL RDW Std Deviation 50.2 H (36.4-46.3) fL RDW Coeff of Zhao 14.8 H (11.5-14.5) % Neut # (Auto) 11.97 H (1.4-6.5) K/uL Dixie # (Auto) 1.03 H (0.11-0.59) K/uL Immature Gran # (Auto) 0.07 H (0.00-0.02) K/uL ABG pH (7.35-7.45) ABG pCO2 (35-46) mmHg ABG pO2 (80-95) mmHg ABG HCO3 (19-24) mmol/L ABG O2 Saturation (90-95) % ABG Base Excess (-9-1.8) mEq/L VBG pH 7.11 L (7.36-7.41) VBG pCO2 109 H (38-50) mmHg Chloride 109 H (98-107) mmol/L Carbon Dioxide 34 H (21-32) mmol/L Anion Gap -2.0 L (3-11) Creatinine 0.46 L (0.6-1.2) mg/dl BUN/Creatinine Ratio 23.7 H (10-20) Glucose 117 H (70-99) mg/dl Calcium 8.4 L (8.5-10.1) mg/dl Alkaline Phosphatase 132 H (45-117) U/L Urine Nitrite (Negative) Ur Leukocyte Esterase (Negative) Urine WBC (Auto) (0-5) /hpf U Epithel Cells (Auto) (0-5) /lpf 05/14/20 05/14/20 Range/Units 13:05 15:30 WBC (4.8-10.8) K/uL RBC (4.2-5.4) M/uL Hgb (12.0-16.0) g/dL MCHC (32-36) g/dL RDW Std Deviation (36.4-46.3) fL RDW Coeff of Zhao (11.5-14.5) % Neut # (Auto) (1.4-6.5) K/uL Dixie # (Auto) (0.11-0.59) K/uL Immature Gran # (Auto) (0.00-0.02) K/uL ABG pH 7.30 L (7.35-7.45) ABG pCO2 64 H (35-46) mmHg ABG pO2 132 H (80-95) mmHg ABG HCO3 31 H (19-24) mmol/L ABG O2 Saturation 98.0 H (90-95) % ABG Base Excess 2.8 H (-9-1.8) mEq/L VBG pH (7.36-7.41) VBG pCO2 (38-50) mmHg Chloride (98-107) mmol/L Carbon Dioxide (21-32) mmol/L Anion Gap (3-11) Creatinine (0.6-1.2) mg/dl BUN/Creatinine Ratio (10-20) Glucose (70-99) mg/dl Calcium (8.5-10.1) mg/dl Alkaline Phosphatase (45-117) U/L Urine Nitrite Positive A (Negative) Ur Leukocyte Esterase Trace H (Negative) Urine WBC (Auto) 5-10 H (0-5) /hpf U Epithel Cells (Auto) 20-30 H (0-5) /lpf Diagnostic Findings XR elbow LT 2V CLINICAL HISTORY: previous fracture COMPARISON: Left elbow radiographs and CT of the left elbow March 08, 2020. FINDINGS: This exam is compromised given difficulty positioning. Old healed distal left humeral fracture is noted. The olecranon fracture shown on prior CT is not visualized on this exam due to technique. No definite acute fracture is noted. Soft tissue swelling has resolved. There is overlying cast. IMPRESSION: 1. Technically difficult exam, as described above. 2. Healed distal left humeral fracture. Left olecranon fracture on prior CT not visualized on this exam due to technique. 3. Interval resolution of soft tissue swelling. 4. No acute fracture on single projection. CT SCAN OF THE BRAIN WITHOUT IV CONTRAST CLINICAL HISTORY: Change in mental status. COMPARISON STUDY: CT of the brain dated 03/08/2020. TECHNIQUE: Unenhanced axial CT scan of the brain is performed from the vertex to the skull base. A dose lowering technique was utilized adhering to the principles of ALARA. The patient was scanned 3 times due to motion artifact. CT DOSE: 1441.90 mGycm FINDINGS: Brain parenchyma: There are age-related involutional changes noting mild to moderate subcortical and periventricular microangiopathic change. There is no hemorrhage, mass effect, or evidence of acute territorial ischemia by CT criteria. Berry-white matter differentiation is preserved. No extra-axial fluid collection is seen. Ventricles, sulci, cisterns: Prominent secondary to involutional change. Intracranial vasculature: There is atherosclerotic calcification of the cavernous carotid and vertebral arteries. Calvarium: Unremarkable. Sinuses and mastoids: The visualized paranasal sinuses are clear. The mastoid air cells are well pneumatized. Orbits: The bony orbits are grossly intact. There are bilateral ocular lens implants. IMPRESSION: There is no hemorrhage, mass effect, or evidence of acute territorial ischemia by CT criteria. XR chest 1V portable HISTORY: weakness COMPARISON: Chest 03/06/2020. FINDINGS: No pneumothorax. No pleural effusions. The lungs are hyperexpanded with apical predominant emphysematous changes. Prior cholecystectomy. The heart is normal in size. Mild diffuse interstitial thickening which is likely chronic. Cervical spinal fusion hardware is noted. No new focal lung consolidations to suggest pneumonia. No evidence for pulmonary edema. IMPRESSION: 1. No new focal lung consolidations to suggest pneumonia. 2. Mild diffuse interstitial thickening which is likely chronic. 3. Emphysema. Medications Administered Discontinued Medications Albuterol (Albut/Ipratrop 3mg/0.5mg Neb 3 Ml Vial) 3 ml NEB NOW STA Stop: 05/14/20 12:55 Last Admin: 05/14/20 13:22 Dose: 3 ml Documented by: [id number] Albuterol (Albut/Ipratrop 3mg/0.5mg Neb 3 Ml Vial) 12 ml NEB ONE ONE Stop: 05/14/20 13:45 Last Admin: 05/14/20 14:15 Dose: 12 ml Documented by: [id number] Ceftriaxone Sodium (Rocephin) 1,000 mg in 50 mls @ 100 mls/hr IV NOW STA Stop: 01/28/21 14:12 Last Infusion: 05/14/20 15:01 Dose: 0 mls/hr Documented by: [id number] Admin: 05/14/20 14:22 Dose: 100 mls/hr Documented by: [id number] Methylprednisolone (Methylprednisolone 125 Mg/2 Ml Vial) 60 mg IV NOW STA Stop: 05/14/20 12:54 Last Admin: 05/14/20 14:22 Dose: 60 mg Documented by: [id number] ECG Additional Comments: Sinus tachycardia with Premature supraventricular complexes Low voltage QRS Code Status & VTE Plan Code Status VTE: Lovenox 30mg QD Code: Full Supervising Physician Co-Signing Physician Notes Attending Attestation & Admission Note: Pt seen & examined, chart reviewed, care plan d/w SKATE HOPBRADLEY Abraham. I agree w/ the penn components of his admission documentation. 75yo female with O2 dependent COPD/chronic hypoxic resp failure on home O2 (3 L by report) - recent left hip fracture and left olecrenon fracture - presents from home with altered mental status. Upon ER presentation was found to have severe hypercarbia with pCO2 >100. Immediately placed on BIPAP for such. During my admission assessment she could wake only briefly to answer questions. Even then it was very difficult to understand her. After 2 hours of BIPAP her pCO2 was much improved to the 60s. Please see Mr Jarad's HPI for more historical details re: recent health events/issues. PMH, PSH, allergies, meds, sochx, famhx - reviewed Vitals stable, afebrile gen - chronically ill, very thin, altered/lethargic, BIPAP in place mouth - MM dry neck - no obvious JVD heart - tachy, s1 s2 lungs - diffuse rhonchi/wheezes b/l, decreased BS bases, no rales, no increased work of breathing abd - soft NT ND BS+, no HSM ext - no edema skin - pale neuro - moves all 4 limbs spontaneously musculo - left arm in splint labs reviewed COVID/flu/RSV neg cxr reviewed EKG - sinus tach, LAE, no ST changes VBG/ABG reviewed A/P: 1. acute hypoxic/hypercarbic resp failure in setting of chronic hypoxic resp failure 2. severe protein calorie malnourishment 3. encephalopathy - metabolic (hypercarbia, ?UTI, pulmonary infectious process?) and/or toxic (ativan/oxycodone) 4. recent left elbow fracture (olecrenon - Rx nonoperative) and left hip fracture s/p troch nail - 02/2020 5. ongoing tobacco dependence 6. left sided 1.3cm pulmonary nodule seen on CT 02/2020 continue BIPAP - settings adjusted in ER once ABG showed significant improvement in pCO2 ultimately wean BIPAP to NC 3 L as tolerated agree with abx / steroids for COPD exacerbation VERY CONCERNED about her oxycodone/ativan use; PDMP shows frequent refills of both meds, often on weekly basis pill bottles were in her possession during my bedside assessment -- she went through 9 ativan tabs in about 30 hours per my counts based on refill of this med on 05/12 toxic effects of both meds could be contributing to loss of respiratory drive and sedation once able to participate in meaningful conversation will need to address with patient in light of #2 and #[address] chest this admission tobacco cessation desperately needed draw end hand consult for #2 as well Jhonny Negro MD PG Care Time/CCT Total # of Minutes Spent Total Time Spent with Patient: Total time spent is greater than 50% in coordination of care (as documented) at patient's floor/unit and/or counseling patient: Coding Level of Care Code 72594 Initial Inpt Care Lvl 3 Diagnoses Respiratory failure J96.21; J96.22 Chronicity: acute on chronic Respiratory failure complication: hypoxia and hypercapnia Overdose T50.901A Encounter type: initial encounter COPD (chronic obstructive pulmonary disease) J43.9 COPD type: emphysema Emphysema type: unspecified Smoker F17.200 Malnutrition E46 Malnutrition type: unspecified type Anxiety F41.9 Leukocytosis D72.829 Leukocytosis type: unspecified Chronic pain G89.29 DVT prophylaxis Z29.9 (1) Leukocytosis Leukocytosis type: unspecified Qualified Code(s): D72.829 - Elevated white blood cell count, unspecified (2) Overdose Encounter type: initial encounter (3) Respiratory failure Chronicity: acute on chronic Respiratory failure complication: hypoxia and hypercapnia Qualified Code(s): J96.21 - Acute and chronic respiratory failure with hypoxia; J96.22 - Acute and chronic respiratory failure with hypercapnia (4) Malnutrition Malnutrition type: unspecified type Qualified Code(s): E46 - Unspecified protein-calorie malnutrition (5) COPD (chronic obstructive pulmonary disease) COPD type: emphysema Emphysema type: unspecified Qualified Code(s): J43.9 - Emphysema, unspecified
--- NOTE | 2020-05-14 17:00 | Electrocardiogram Report ---
Test Reason : Blood Pressure : / mmHG Vent. Rate : 111 BPM Atrial Rate : 111 BPM P-R Int : 124 ms QRS Dur : 066 ms QT Int : 332 ms P-R-T Axes : 084 085 -11 degrees QTc Int : 451 ms Poor data quality, interpretation may be adversely affected Sinus tachycardia with Premature supraventricular complexes Low voltage QRS Nonspecific ST abnormality Abnormal ECG Confirmed by Casey Olson ([id number]) on 05/14/2020 4:59:38 PM Referred By: REFERRED SELF Confirmed By:Dilip Olson
[2020-05-14] MEDS ORDERED: IPRATROPIUM BROMIDE/ALBUTEROL respimat INH INH SCH (18:38)
[2020-05-14] MEDS ORDERED: ALBUT/IPRATROP 3MG/0.5MG NEB 3 ML VIAL INH PRN (18:38)
[2020-05-14] MEDS ORDERED: PATIENT'S HEIGHT AND/OR WEIGHT NEEDED SCH (19:00)
[2020-05-14] MEDS ORDERED: ALBUTEROL HFA 8 GM INHALER INH SCH (19:00)
[2020-05-14] MEDS: ALBUTEROL HFA 8 GM INHALER INH SCH (19:04)
[2020-05-14] MEDS: FAMOTIDINE 20 MG TAB PO SCH (20:46)
[2020-05-14] MEDS: ACETAMINOPHEN 325 MG TAB PO PRN (20:46)
[2020-05-14] MEDS: ATORVASTATIN 20 MG TAB PO SCH (20:47)
[2020-05-14] MEDS: DOCUSATE SODIUM 100 MG CAP PO SCH (20:48)
[2020-05-14] MEDS ORDERED: TAMSULOSIN HCL 0.4 MG CAP PO SCH (21:00)
[2020-05-15] MEDS: ALBUTEROL HFA 8 GM INHALER INH SCH ×4 (00:16→20:18)
[2020-05-15 04:48] LABS: Appearance Urine Clear (Clear); Bacteria Urine Automated Negative (Negative); Bilirubin Urine Negative (Negative); Blood Urine 2+ (Negative); Color Urine Yellow; Epithelial Cell Urine Auto >30 /lpf (0-5); Glucose Urine UA Negative (Negative); Ketones Urine 2+ (Negative); Leukocyte Esterase Urine 1+ (Negative); Nitrite Urine Negative (Negative); Protein Urine Trace (Negative); RBC Urine Automated 0-4 /hpf (0-4); Specific Gravity Urine 1.023 (1.000-1.030); Urobilinogen Urine Negative (Negative)
[2020-05-15 07:10] LABS: Basophils # (auto) 0.02 K/uL (0-0.2); Basophils % (auto) 0.2 %; Eosinophils # (auto) 0.01 K/uL (0-0.5); Eosinophils % (auto) 0.1 %; Hematocrit (blood only) 35.6 % (37-47); Hemoglobin 11.5 g/dL (12.0-16.0); Immature Granulocytes # (auto) 0.03 K/uL (0.00-0.02); Immature Granulocytes % (auto) 0.3 %; Lymphocytes # (auto) 1.41 K/uL (1.2-3.4); Lymphocytes % (auto) 12.6 %; Mean Corpuscular Hgb Conc 32.3 g/dL (32-36); Mean Corpuscular Volume 89.7 fL (80-100); Mean Platelet Volume 10.2 fL (7.4-10.4); Monocytes # (auto) 1.46 K/uL (0.11-0.59); Neutrophils # (auto) 8.28 K/uL (1.4-6.5); Neutrophils % (auto) 73.8 %; Platelet Count 223 K/uL (130-400); RDW Coefficient of Variation 14.3 % (11.5-14.5); RDW Standard Deviation 47.5 fL (36.4-46.3); Red Blood Count 3.97 M/uL (4.2-5.4); White Blood Count 11.21 K/uL (4.8-10.8)
[2020-05-15 07:43] LABS: BUN Creatinine Ratio 36.7 (10-20); Calcium 9.4 mg/dl (8.5-10.1); Creatinine Clr Calc Pharmacy 56.1 ml/min; Est GFR (African American) 114.4; Est GFR (Non-African American) 98.7; Potassium 4.4 mmol/L (3.5-5.1)
[2020-05-15] MEDS: FLUTICASONE FUROATE 100MCG 14 PUFFS/INHALER INH SCH (08:30)
[2020-05-15] MEDS: CHOLECALCIFEROL 1,000 UNITS 25 MCG TAB PO SCH (08:30)
[2020-05-15] MEDS: UMECLIDINIUM/VILANTEROL 62.5/25MCG 7 PUFFS/INHALER INH SCH (08:30)
[2020-05-15] MEDS: amLODIPine BESYLATE 5 MG TAB PO SCH (08:30)
[2020-05-15] MEDS: DOCUSATE SODIUM 100 MG CAP PO SCH ×2 (08:31→20:05)
[2020-05-15] MEDS: ENOXAPARIN INJ 30 MG/0.3 ML SYR SC SCH (08:31)
[2020-05-15] MEDS: FAMOTIDINE 20 MG TAB PO SCH ×2 (08:31→20:04)
[2020-05-15] MEDS: AZITHROMYCIN 250 MG TAB PO SCH (08:31)
[2020-05-15] MEDS: DULoxetine HCL 60 MG CAP PO SCH (08:32)
[2020-05-15] MEDS: ACETAMINOPHEN 325 MG TAB PO PRN ×2 (10:48→20:03)
--- NOTE | 2020-05-15 10:48 | Hospitalist Progress Note ---
Date of Service May 15, 2020 Assessment & Plan (1) Acute metabolic encephalopathy: Metabolic/toxic encephalopathy in setting of respiratory acidosis and possible drug OD treated and resolved - metabolic secondary to hypercarbia and/or toxic (ativan/oxycodone) Do not suspect infection-urinalysis abnormal but is contaminated Infectious work-up otherwise negative but treating for COPD exacerbation with azithromycin Now significantly improved with BiPAP overnight Continue BiPAP nightly Continue treating COPD as below VERY CONCERNED about her oxycodone/ativan use; PDMP shows frequent refills of both meds, often on weekly basis pill bottles were in her possession during admitting physician's bedside assessment -- she went through 9 ativan tabs in about 30 hours per counts based on refill of this med on 05/12 toxic effects of both meds could be contributing to loss of respiratory drive and sedation I did address this with the patient and she was upset and would like to be weaned off both medications-do not want to cause withdrawal-Will restart lorazepam at 0.5 mg 3 times daily as needed and oxycodone at 2.5 mg twice daily as needed Also need to address nutritional status which could contribute to encephalopathy-checking B1 level and will start thiamine (2) Respiratory failure: Acute hypercarbic/hypoxic respiratory failure - ? cause- Central respiratory depression vs. COPD exacerbation in the setting of oxycodone and Ativan use possibly excessively - will treat for COPD exacerbation in setting of cough associated with patient report of increased sputum and increase cough with SOB - PETE scheduled q6 hours, transition back to PRN after 24 hours if able - Continue nebs PRN in between - Hold flonase. (3) Overdose: PDMP reviewed, patient with prescriptions filled for Ativan 1mg (15 tabs) and Oxycodone 5 mg (24 tabs) on . These scripts were filled as well on 06May2020, 30Apr2020. Week supply issued every week since March. - Ativan pill bottle in room with 9 pills used in ~ 30 hours - Oxycodone bottle not in room Will monitor patient with AWSS if Score >9 or RAAS >-2, notify provider continuous improvement black belt and may initiate treatment doses as needed. Clonidine patch if patient needs for opioid withdrawal We will restart at lower doses to prevent withdrawal (4) COPD (chronic obstructive pulmonary disease): As above, smoking cessation education - exacerbation ? VS central narcosis from sedative medications above - PO Prednisone at 20 mg PO BID, increase dose if needed - Azithromycin (5) Smoker: as above Encourage cessation (6) Malnutrition: Nutrition consult, as most laboratory markers are poor indicators. BMI 13 Check B1 level Start thiamine and MVI - chronically underweight (7) Anxiety: - continue duloxetine - may need assistance weaning down [facility] benzo use (8) Leukocytosis: Chronically elevated back into February. - Do not feel this is related to infection at this time, urine is Leuk positive, with WBC 5-10 no bacteria. - Contaminant likely - blood cultures pending, urine repeat pending - no fevers - one dose of ceftriaxone in the ER. - azithromycin as above for COPD exacerbation. (9) Chronic pain: ? chronic use of opiods- May 2018 - Patient has decompression and spinal fusions as part of her history of chronic back pain. - Request records if able for review Wean off oxycodone or lower the dose (10) Chronic respiratory failure with hypoxia: On home O2 (11) Hypertension: Blood pressures are controlled Continue amlodipine (12) Severe protein-calorie malnutrition: Severe protein-calorie malnutrition in setting of acute fracture/surgery and chronic respiratory failure e/b cachexia and 11.7% loss in BW in 2 months (13) Opioid dependence: As above (14) Benzodiazepine dependence: As above (15) Closed fracture of left olecranon process: recent left elbow fracture (olecrenon - Rx nonoperative) and left hip fracture s/p troch nail - 02/2020 Follow-up with orthopedics (16) Closed fracture of left hip requiring operative repair: recent left elbow fracture (olecrenon - Rx nonoperative) and left hip fracture s/p troch nail - 02/2020 (17) DVT prophylaxis: lovenox 30mg daily Disposition-continued stay for observation overnight, most likely discharged home tomorrow Admission and Anticipated Discharge Date Admission Date: May 14, 2020 Subjective Patient feels well today. Reports chronic cough not worse than usual. Discussed her condition and how she came in as she does not remember. She has been taking oxycodone she thinks at least twice a day as well as her Ativan 2 or 3 times a day she reports. Denies shortness of breath, no chest pain. Otherwise feels well. Does have some pain in the left ribs Review of Systems Review of Systems: All systems reviewed & are unremarkable except as noted in HPI & below Physical Exam Constitutional: + thin and + cachectic; no acute distress Eyes: + anicteric sclerae Neck: trachea midline, no thyromegaly Respiratory: normal respiratory effort and + cough Auscultation: + wheezes; no crackles Cardiovascular: RRR, no murmur, no edema Chest (Breasts): Chest: normal inspection of chest Gastrointestinal (Abdomen): normal bowel sounds, soft, nontender, no hepatosplenomegaly Musculoskeletal: Extremities: + extremities abnormal to inspection (Severe sarcopenia), no cyanosis and no clubbing Skin: no rashes, warm and dry Neurologic: moves all extremities and awake; no focal motor deficits Psychiatric: A+Ox3, euthymic affect Lymphatic: no lymphedema Results & Data Results & Data ([facility]) Vital Signs (Past 12 Hours) Vital Signs Temp Pulse Pulse Resp BP Pulse Ox 05/15/20 07:29 36.6 C 112 H 20 127/67 99 05/15/20 07:20 112 H 18 99 05/15/20 03:23 36.5 C 110 H 18 129/71 97 05/15/20 00:18 110 H 18 96 05/14/20 22:55 36.5 C 110 H 18 120/67 97 Laboratory Results Labs reviewed PG Care Time/CCT Total # of Minutes Spent Total Time Spent with Patient: Total time spent is greater than 50% in coordination of care (as documented) at patient's floor/unit and/or counseling patient: Coding Level of Care Code 72316 Subseq Hosp Care Lvl 3 Diagnoses Acute metabolic encephalopathy G93.41 Respiratory failure J96.21; J96.22 Chronicity: acute on chronic Respiratory failure complication: hypoxia and hypercapnia Overdose T50.901A Encounter type: initial encounter COPD (chronic obstructive pulmonary disease) J43.9 COPD type: emphysema Emphysema type: unspecified Smoker F17.200 Malnutrition E46 Malnutrition type: unspecified type Anxiety F41.9 Leukocytosis D72.829 Leukocytosis type: unspecified Chronic pain G89.29 Chronic respiratory failure with hypoxia J96.11 Hypertension I10 Severe protein-calorie malnutrition E43 Opioid dependence F11.20 Benzodiazepine dependence F13.20 Closed fracture of left olecranon process S52.022A Encounter type: initial encounter Closed fracture of left hip requiring operative repair S72.002A DVT prophylaxis Z29.9 (1) Leukocytosis Leukocytosis type: unspecified Qualified Code(s): D72.829 - Elevated white b lood cell count, unspecified (2) Overdose Encounter type: initial encounter (3) Respiratory failure Chronicity: acute on chronic Respiratory failure complication: hypoxia and hypercapnia Qualified Code(s): J96.21 - Acute and chronic respiratory failure with hypoxia; J96.22 - Acute and chronic respiratory failure with hypercapnia (4) Malnutrition Malnutrition type: unspecified type Qualified Code(s): E46 - Unspecified protein-calorie malnutrition (5) COPD (chronic obstructive pulmonary disease) COPD type: emphysema Emphysema type: unspecified Qualified Code(s): J43.9 - Emphysema, unspecified (6) Closed fracture of left olecranon process Encounter type: initial encounter Qualified Code(s): S52.022A - Displaced fracture of olecranon process without intraarticular extension of left ulna, initial encounter for closed fracture
[2020-05-15] MEDS: oxyCODONE HCL IR 5 MG TAB (IMMEDIATE RELEASE) PO PRN (15:02)
[2020-05-15] MEDS: LORazepam 0.5 MG TAB PO PRN (18:13)
[2020-05-15] MEDS: THIAMINE HCL 100 MG TAB PO SCH (18:27)
[2020-05-15] MEDS: CEROVITE ADV FORMULA TAB PO SCH (18:27)
[2020-05-15] MEDS: predniSONE 20 MG TAB PO SCH (20:04)
[2020-05-15] MEDS: ATORVASTATIN 20 MG TAB PO SCH (20:06)
[2020-05-16] MEDS: ALBUTEROL HFA 8 GM INHALER INH SCH ×2 (00:51→07:47)
[2020-05-16] MEDS: oxyCODONE HCL IR 5 MG TAB (IMMEDIATE RELEASE) PO PRN (05:47)
[2020-05-16 06:27] LABS: Basophils # (auto) 0.01 K/uL (0-0.2); Basophils % (auto) 0.1 %; Hematocrit (blood only) 36.7 % (37-47); Hemoglobin 12.5 g/dL (12.0-16.0); Immature Granulocytes # (auto) 0.02 K/uL (0.00-0.02); Immature Granulocytes % (auto) 0.2 %; Lymphocytes # (auto) 0.81 K/uL (1.2-3.4); Lymphocytes % (auto) 9.4 %; Mean Corpuscular Hemoglobin 29.6 pg (25-34); Mean Corpuscular Hgb Conc 34.1 g/dL (32-36); Mean Corpuscular Volume 86.8 fL (80-100); Mean Platelet Volume 10.4 fL (7.4-10.4); Monocytes # (auto) 0.28 K/uL (0.11-0.59); Monocytes % (auto) 3.2 %; Neutrophils # (auto) 7.52 K/uL (1.4-6.5); Neutrophils % (auto) 87.1 %; Platelet Count 240 K/uL (130-400); RDW Coefficient of Variation 14.3 % (11.5-14.5); RDW Standard Deviation 45.8 fL (36.4-46.3); Red Blood Count 4.23 M/uL (4.2-5.4); White Blood Count 8.64 K/uL (4.8-10.8)
[2020-05-16 07:07] LABS: BUN Creatinine Ratio 25.7 (10-20); Calcium 9.3 mg/dl (8.5-10.1); Creatinine Clr Calc Pharmacy 56.4 ml/min; Est GFR (African American) 114.4; Est GFR (Non-African American) 98.7
[2020-05-16] MEDS: FLUTICASONE FUROATE 100MCG 14 PUFFS/INHALER INH SCH (08:09)
[2020-05-16] MEDS: DOCUSATE SODIUM 100 MG CAP PO SCH (08:10)
[2020-05-16] MEDS: UMECLIDINIUM/VILANTEROL 62.5/25MCG 7 PUFFS/INHALER INH SCH (08:16)
[2020-05-16] MEDS: ACETAMINOPHEN 325 MG TAB PO PRN (08:16)
[2020-05-16] MEDS: LORazepam 0.5 MG TAB PO PRN (08:16)
[2020-05-16] MEDS: CEROVITE ADV FORMULA TAB PO SCH (08:17)
[2020-05-16] MEDS: amLODIPine BESYLATE 5 MG TAB PO SCH (08:17)
[2020-05-16] MEDS: CHOLECALCIFEROL 1,000 UNITS 25 MCG TAB PO SCH (08:17)
[2020-05-16] MEDS: predniSONE 20 MG TAB PO SCH (08:17)
[2020-05-16] MEDS: DULoxetine HCL 60 MG CAP PO SCH (08:18)
[2020-05-16] MEDS: ENOXAPARIN INJ 30 MG/0.3 ML SYR SC SCH (08:18)
[2020-05-16] MEDS: AZITHROMYCIN 250 MG TAB PO SCH (08:18)
[2020-05-16] MEDS: THIAMINE HCL 100 MG TAB PO SCH (08:18)
[2020-05-16] MEDS: FAMOTIDINE 20 MG TAB PO SCH (08:18)
[2020-05-16] MEDS ORDERED: ONDANSETRON INJ 2 MG/ML 2 ML VIAL IV PRN (08:27)
[2020-05-16] MEDS ORDERED: ONDANSETRON INJ 2 MG/ML 2 ML VIAL ONE (08:31)
[2020-05-16] MEDS ORDERED: ALBUTEROL HFA 8 GM INHALER INH PRN (10:32)
--- NOTE | 2020-05-16 11:18 | Discharge Summary ---
Date of Service May 16, 2020 Admission HPI Per Admitting Provider 75 YOF with significant history of COPD, current smoker, frequent falls, and ? malnutrition as patient is underweight. Patient's most recent fall was in FEB 2020 and resulted in acute displaced intertrochanteric left hip fracture required nailing, She also has an acute minimally displaced olecranon fracture in her left elbow. Patient recovered and went to [facility] for rehab. The patient was most recently at the medical center where she was treated for anxiety and palpitations and discharged on Ativan 1mg and Oxycodone 5 mg (filled on 12May2020), she was found to be unarousable at home by her son, EMS was called and the patient was brought to the emergency room. In the ED the patient was found to be hypercarbic with PaCo2 109, acidotic at 7.11 and PaO2 at 57. She was placed on BIPAP 18/8 with 30% FIO2. Upon my evaluation the patient had been on these settings for ~45 min and was arousable, spo2 was 100%, RR 20, VT 900- 1030. Repeat ABG was performed----> PaCO2 66, PH 7.37, PaO2 132. Patient will be admitted to PCU, continue to wean down BIPAP, EtCO2 monitoring while not on BiPAP, hold sedating agents, ? COPD exacerbation, monitor for withdrawls. Principal Diagnosis Acute on chronic respiratory failure with hypoxia and hypercapnia Overdose on opioids and benzodiazepines Discharge Exam Constitutional + thin and + cachectic; no acute distress Eyes + anicteric sclerae Neck trachea midline, no thyromegaly Respiratory normal respiratory effort and + cough Auscultation: + rhonchi (scattered, clears with cough); no crackles Cardiovascular RRR, no murmur, no edema Chest (Breasts) Chest: normal inspection of chest Gastrointestinal (Abdomen) normal bowel sounds, soft, nontender, no hepatosplenomegaly Musculoskeletal Extremities: + extremities abnormal to inspection (Severe sarcopenia), no cyanosis and no clubbing Skin no rashes, warm and dry Neurologic moves all extremities and awake; no focal motor deficits Psychiatric A+Ox3, euthymic affect Lymphatic no lymphedema Discharge Data Allergies Allergy/AdvReac Type Severity Reaction Status Date / Time No Known Allergies Allergy Verified 05/14/20 15:01 Consultations 05/14/20 14:31 ED Decision to Admit Stat Ordered Studies 05/14/20 12:52 CT head/brain wo con Stat Elbow xrays x 2 CXR Hospital Course (1) Acute metabolic encephalopathy: Metabolic/toxic encephalopathy in setting of respiratory acidosis and possible drug OD treated and resolved - metabolic secondary to hypercarbia and/or toxic (ativan/oxycodone) Do not suspect infection-urinalysis abnormal but is contaminated Infectious work-up otherwise negative but treating for COPD exacerbation with azithromycin Now significantly improved with BiPAP overnight and is at baseline but with some withdrawal signs as we cut down on her oxycodone and lorazepam doses here-had some mild confusion and nausea Continue treating COPD as below VERY CONCERNED about her oxycodone/ativan use; PDMP shows frequent refills of both meds, often on weekly basis pill bottles were in her possession during admitting physician's bedside assessment -- she went through 9 ativan tabs in about 30 hours per counts based on refill of this med on 05/12 toxic effects of both meds could be contributing to loss of respiratory drive and sedation I did address this with the patient and she was upset and would like to be weaned off the lorazepam for sure but stil want sto take oxycodone-do not want to cause withdrawal-Will restart lorazepam at 0.5 mg 3 times daily as needed and oxycodone at 2.5 mg twice daily as needed--needs close f/u with PCP Also need to address nutritional status which could contribute to encephalopathy-checking B1 level and will start thiamine, Multivitamin (2) Respiratory failure: Acute hypercarbic/hypoxic respiratory failure - liskely due to central respiratory depression from benzo/opioid overuse vs. COPD exacerbation - will treat for COPD exacerbation in setting of cough associated with patient report of increased sputum and increase cough with SOB - treated with nebs -continue usual inhalers on discharge with prednisone course (3) Chronic respiratory failure with hypoxia: On home O2-at baseline amount on discharge (4) Overdose: PDMP reviewed, patient with prescriptions filled for Ativan 1mg (15 tabs) and Oxycodone 5 mg (24 tabs) on . These scripts were filled as well on 06May2020, 30Apr2020. Week supply issued every week since March. - Ativan pill bottle in room with 9 pills used in ~ 30 hours - Oxycodone bottle not in room Will monitor patient with AWSS if Score >9 or RAAS >-2, notify provider virtualization architect and may initiate treatment doses as needed. Clonidine patch if patient needs for opioid withdrawal continue lower doses to prevent withdrawal (5) COPD (chronic obstructive pulmonary disease): As above, smoking cessation education - exacerbation ? VS central narcosis from sedative medications above - PO Prednisone at 20 mg PO BID, total 5 day course - Azithromycin x 5 day course (6) Smoker: as above Encourage cessation (7) Malnutrition: Nutrition consult, as most laboratory markers are poor indicators. BMI 13 Check B1 level-pending at time of discharge Started thiamine and MVI - chronically underweight (8) Anxiety: - continue duloxetine -will need PCP assistance weaning down jail benzo use (9) Leukocytosis: Chronically elevated back into February. - Do not feel this is related to infection at this time, urine is Leuk positive, with WBC 5-10 no bacteria. - Contaminant likely - blood cultures pending, urine repeat pending - no fevers - one dose of ceftriaxone in the ER.None further needed - azithromycin as above for COPD exacerbation. (10) Chronic pain: ? chronic use of opiods- May 2018 - Patient has decompression and spinal fusions as part of her history of chronic back pain. Wean off oxycodone or lower the dose (11) Hypertension: Blood pressures are controlled Continue amlodipine (12) Severe protein-calorie malnutrition: Severe protein-calorie malnutrition in setting of acute fracture/surgery and chronic respiratory failure e/b cachexia and 11.7% loss in BW in 2 months (13) Opioid dependence: As above (14) Benzodiazepine dependence: As above (15) Closed fracture of left olecranon process: recent left elbow fracture (olecrenon - Rx nonoperative) and left hip fracture s/p troch nail - 02/2020 Follow-up with orthopedics (16) Closed fracture of left hip requiring operative repair: recent left elbow fracture (olecrenon - Rx nonoperative) and left hip fracture s/p troch nail - 02/2020 (17) DVT prophylaxis: lovenox 30mg daily Disposition-dc to home with home health Attempted to call son listed as POC and left a voicemail Total Time Total Time Spent Total Time Spent (In Minutes): 35 min Total Time Includes: Examination of the Patient, Discharge Planning and Medication Reconciliation Discharge Plan Discharge Items Patient Disposition: Home - Home Health Services Reason For Visit: HYPERCARBIC RESP FAILURE Discharge Diagnosis: Acute on chronic respiratory failure with hypoxia and hypercapnia Opioid and benzodiazepine dependence Condition on Discharge: Fair Activity: As commented below Lifting: Gradually increase as tolerated Exercise/Sports: Gradually increase as tolerated Exercise Comment: with home PT/OT Non-emergency contact: Primary Care Provider, Surgeon and Tattoo Designer Call non-emergency contact if: you have any medication questions and your symptoms worsen Follow-up/Referrals: Kenzie Bermudez MD [Primary Care Provider] - (Follow up within 1-2 weeks) Diet: Regular Addtl Attending Provider Instructions: You were admitted with respiratory failure due to your COPD as well as possibly taking excessive lorazepam and oxycodone. These medications are toxic for your body, especially given your severely low body weight. These types of medications can slow down and even make you stop breathing if taken in excess. Moving forward, you should begin a slow taper down on both your lorazepam and the oxycodone. For now, please only take one HALF of a tablet of each of the lorazepam and oxycodone when needed. If you develop significant nausea/vomiting or diarrhea, sweating, these can be signs of opioid (oxycodone) withdrawal. If you develop shaking, anxiety, hallucinations, high blood pressure and heart rate, or seizures, these can all be signs of withdrawal from the lorazepam. Please call your doctor for mild symptoms but if severe, please return to the hospital. Dr. Bermudez can help you wean off these medications too and you should follow up with her in the office within 1 week after discharge. For your COPD, please STOP smoking and avoid being around others who smoke. Continue the prednisone for 4 more days and the azithromycin antibiotic for 3 more days. You were also started on thiamine (Vitamin B1) and a multivitamin for your severe malnutrition. Please buy these at the drug store when you go to get your prescriptions. Pending Studies at Discharge: Yes Stand-Alone Forms: My [facility], Opioid Pain Management, Smoking Cessation Medications and DC Order Prescriptions: New azithromycin 250 mg Tablet 250 mg PO QAM Qty: 3 RF: 0 acetaminophen 325 mg Tablet 650 mg PO Q4H PRN (Reason: pain) Qty: 30 RF: 0 prednisone 20 mg Tablet 20 mg PO BID 3 Days Qty: 6 RF: 0 thiamine HCl (vitamin B1) [Vitamin B-1] 100 mg Tablet 100 mg PO QAM Qty: 30 RF: 0 Certavite-Antioxidant 18-400 mg-mcg Tablet 1 tab PO QAM Qty: 30 RF: 0 Continued atorvastatin 20 mg tablet 20 mg PO PM RF: 0 ipratropium-albuterol 0.5 mg-3 mg(2.5 mg base)/3 mL Solution For Nebulization 3 ml INHALATION Q4H PRN (Reason: SOB) RF: 0 amlodipine 2.5 mg tablet 5 mg PO QAM RF: 0 famotidine 20 mg tablet 20 mg PO BID RF: 0 albuterol sulfate [Ventolin HFA] 90 mcg/actuation HFA aerosol inhaler 1 - 2 puff INHALATION Q4H PRN (Reason: SOB/ Wheezing) RF: 0 docusate sodium 100 mg Tablet 100 mg PO BID RF: 0 duloxetine 60 mg capsule,delayed release(DR/EC) 60 mg PO QAM RF: 0 Trelegy Ellipta 100-62.5-25 mcg blister with device 1 inh INHALATION BID RF: 0 tamsulosin [Flomax] 0.4 mg Capsule 0.4 mg PO HS RF: 0 cholecalciferol (vitamin D3) 125 mcg (5,000 unit) capsule 125 mcg PO DAILY RF: 0 Combivent Respimat 20-100 mcg/actuation mist 1 puff INHALATION DIRECTED RF: 0 fluticasone propionate 50 mcg/actuation spray,suspension 2 spray INTRANASAL DAILY PRN (Reason: Nasal Congestion) RF: 0 Changed lorazepam 1 mg tablet 0.5 mg PO Q8H PRN (Reason: Anxiety) Qty: 0 RF: 0 oxycodone 5 mg tablet 2.5 mg PO Q8H PRN (Reason: Pain) Qty: 0 RF: 0 Discontinued enoxaparin 30 mg/0.3 mL syringe 0.3 mg subcut DAILY RF: 0 Discharge Orders: Discharge Order (Routine); Ordered 05/16/20 Ordered By: Gloria Merida Admission Data Admit Date/Time: 05/14/20 16:27 Attending Provider: Gloria Merida Admit Provider: Jhonny Negro Primary Care Provider: Kenzie Bermudez Other Providers: Jhonny Negro ; [facility],Home Healthcare Coding Level of Care Code D/C Day Management >30 mins Diagnoses Acute metabolic encephalopathy G93.41 Respiratory failure J96.21; J96.22 Chronicity: acute on chronic Respiratory failure complication: hypoxia and hypercapnia Chronic respiratory failure with hypoxia J96.11 Overdose T50.901A Encounter type: initial encounter COPD (chronic obstructive pulmonary disease) J43.9 COPD type: emphysema Emphysema type: unspecified Smoker F17.200 Malnutrition E46 Malnutrition type: unspecified type Anxiety F41.9 Leukocytosis D72.829 Leukocytosis type: unspecified Chronic pain G89.29 Hypertension I10 Severe protein-calorie malnutrition E43 Opioid dependence F11.20 Benzodiazepine dependence F13.20 Closed fracture of left olecranon process S52.022A Encounter type: initial encounter Closed fracture of left hip requiring operative repair S72.002A DVT prophylaxis Z29.9
== END 2020-05-16 16:04 | disposition home health service (06) ==
LOC: ED 12:35 → 2S 16:27 → INTOOBSV 16:27 → SUATTDRO 16:27 → 2S 18:02